=== PATIENT | male | born 1960 | race Caucasian/White ===

== ENCOUNTER 2016-02-18 19:53 | Inpatient (IN) | payer OTHER ==
[~2016-02-18] VITALS: Ht 154.9 cm; Wt 69.6 kg
[~2016-02-18 19:53] MED LIST: TRAM50TA PO; ZANT150T2 PO
[2016-02-18 19:55] VITALS: BP 116/65; PULSE 66; RESP 20; TEMP 99.1; O2SAT 95
[2016-02-18] MEDS ORDERED: SODIUM CHLOR 0.9% 1000 ML INJ 1,000 ML IV SCH (20:02)
[2016-02-18] MEDS ORDERED: METR500T10 PO (20:05)
[2016-02-18] MEDS ORDERED: diphenhydrAMINE HCL 50 MG/ML VIAL IV PUSH ONE (20:15)
[2016-02-18] MEDS ORDERED: ONDANSETRON HCL 4 MG/2 ML VIAL IVP ONE (20:15)
[2016-02-18] MEDS ORDERED: SODIUM CHLORIDE 0.9% FLUSH 5 ML FLUSH IVF PRN (20:15)
[2016-02-18] MEDS ORDERED: METOCLOPRAMIDE HCL 10 MG/2 ML VIAL IV PUSH ONE (20:15)
[2016-02-18] MEDS ORDERED: MORPHINE SULFATE 4 MG/ML INJ IV PUSH ONE (20:15)
[2016-02-18] MEDS ORDERED: PANTOPRAZOLE SODIUM 40 MG VIAL IVP ONE (20:15)
--- NOTE | 2016-02-18 20:15 | PD ---
Physical Exam Narrative Patient was seen and examined with my blacksmith assistant. Data Data Last Documented VS Vital Signs Date Time Temp Pulse Resp B/P Pulse Ox O2 Delivery O2 Flow Rate FiO2 02/18/16 19:55 99.1 66 20 116/65 95 Room Air Orders Complete Blood Count With Diff (02/18/16 20:02) Comprehensive Metabolic Panel (02/18/16 20:02) Lipase (02/18/16 20:02) Lactic Acid (02/18/16 20:02) Urinalysis - C+S If Indicated (02/18/16 20:02) Iv Access Insert/Monitor (02/18/16 20:02) Ecg Monitoring (02/18/16 20:02) Oximetry (02/18/16 20:02) NPO (02/18/16 20:02) Ondansetron Inj (Zofran Inj) (02/18/16 20:15) Pantoprazole Inj (Protonix Inj) (02/18/16 20:15) Sodium Chlor 0.9% 1000 Ml Inj (Ns 1000 M (02/18/16 20:02) Sodium Chloride 0.9% Flush (Ns Flush) (02/18/16 20:15) Morphine Inj (Morphine Inj) (02/18/16 20:15) Metoclopramide Inj (Reglan Inj) (02/18/16 20:15) Diphenhydramine Inj (Benadryl Inj) (02/18/16 20:15) MDM Supervised Visit with LEONARD: Yes Juan Daniel Valle MD Feb 18, 2016 20:15
[2016-02-18 20:27] VITALS: BP 201/98; PULSE 86; RESP 16; O2SAT 92
--- NOTE | 2016-02-18 20:27 | PD ---
HPI Chief Complaint: GI Complaint Time Seen by Provider: 20:00 Travel History International Travel<30 days: No Contact w/Intl Traveler<30days: No Traveled to known affect area: No History of Present Illness HPI Patient is a 55-year-old male who presents emergency department for evaluation of nausea and vomiting and abdominal pain. Patient states that this episode started yesterday, he has been vomiting all day. Patient reports that the symptoms have been intermittent over the last 5 years, patient was recently in the emergency Department approximately one month ago with the same complaint. He denies any fever, chills, headache, diarrhea. Patient is Vietnamese-speaking only, staff member is interpreting. Patient denies any alcohol use, drug use, tobacco use. He does report substernal chest pain. He went to his primary DrArely Johnson 2 days ago was prescribed Flagyl. [facility] Past Medical History Diminished Hearing: No Gastrointestinal Disorders: Yes GERD: Yes Hypertension: Yes Family History Family History: Negative Social History Alcohol Use: No Tobacco Use: No Substance Use: No Allergies-Medications (Allergen,Severity, Reaction): Coded Allergies: No Known Allergies (Verified , 02/18/16) Reported Meds & Prescriptions Reported Meds & Active Scripts Active Reported Metronidazole 500 Mg Tab 500 Mg PO TID Review of Systems Except as stated in HPI: all other systems reviewed are Neg General / Constitutional: No: Fever, Chills HENT: No: Headaches Cardiovascular: Positive: Chest Pain or Discomfort Respiratory: No: Shortness of Breath Gastrointestinal: Positive: Nausea, Vomiting, Abdominal Pain, Indigestion, Loss of Appetite, No: Diarrhea, Changes in Bowel Habits Genitourinary: No: Dysuria Musculoskeletal: No: Myalgias Neurologic: No: Weakness, Dizziness, Focal Abnormalities, Change in Mentation Physical Exam Narrative GENERAL: Well developed, well-nourished, alert male. Appears uncomfortable, actively vomiting. SKIN: Warm and dry. HEAD: Atraumatic. Normocephalic. EYES: Pupils equal and round. No scleral icterus. No injection or drainage. ENT: No nasal bleeding or discharge. Mucous membranes pink and moist. NECK: Trachea midline. No JVD. CARDIOVASCULAR: Regular rate and rhythm. No murmur appreciated. RESPIRATORY: No accessory muscle use. Clear to auscultation. Breath sounds equal bilaterally. GASTROINTESTINAL: Abdomen soft, tender diffusely with positive bowel sounds. Positive guarding. MUSCULOSKELETAL: No obvious deformities. No clubbing. No cyanosis. No edema. NEUROLOGICAL: Awake and alert. No obvious cranial nerve deficits. Motor grossly within normal limits. Normal speech. PSYCHIATRIC: Appropriate mood and affect; insight and judgment normal. Data Data Last Documented VS Vital Signs Date Time Temp Pulse Resp B/P Pulse Ox O2 Delivery O2 Flow Rate FiO2 02/18/16 21:15 66 16 177/85 97 Room Air 02/18/16 19:55 99.1 Orders Complete Blood Count With Diff (02/18/16 20:02) Comprehensive Metabolic Panel (02/18/16 20:02) Lipase (02/18/16 20:02) Lactic Acid (02/18/16 20:02) Urinalysis - C+S If Indicated (02/18/16 20:02) Iv Access Insert/Monitor (02/18/16 20:02) Ecg Monitoring (02/18/16 20:02) Oximetry (02/18/16 20:02) NPO (02/18/16 20:02) Ondansetron Inj (Zofran Inj) (02/18/16 20:15) Pantoprazole Inj (Protonix Inj) (02/18/16 20:15) Sodium Chlor 0.9% 1000 Ml Inj (Ns 1000 M (02/18/16 20:02) Sodium Chloride 0.9% Flush (Ns Flush) (02/18/16 20:15) Morphine Inj (Morphine Inj) (02/18/16 20:15) Metoclopramide Inj (Reglan Inj) (02/18/16 20:15) Diphenhydramine Inj (Benadryl Inj) (02/18/16 20:15) Ckmb (Isoenzyme) Profile (02/18/16 20:15) Troponin I (02/18/16 20:15) CKMB (02/18/16 20:15) CKMB% (02/18/16 20:15) Electrocardiogram (02/18/16 20:42) Ct Abd/Pel W Iv Contrast(Rout) (02/18/16 ) Admit Order (Ed Use Only) (02/18/16 21:57) Labs Laboratory Tests Test 02/18/16 20:15 White Blood Count 16.9 TH/MM3 Red Blood Count 5.08 MIL/MM3 Hemoglobin 15.0 GM/DL Hematocrit 45.1 % Mean Corpuscular Volume 88.7 FL Mean Corpuscular Hemoglobin 29.6 PG Mean Corpuscular Hemoglobin 33.4 % Concent Red Cell Distribution Width 14.1 % Platelet Count 268 TH/MM3 Mean Platelet Volume 9.6 FL Neutrophils (%) (Auto) 64.8 % Lymphocytes (%) (Auto) 24.4 % Monocytes (%) (Auto) 9.5 % Eosinophils (%) (Auto) 1.0 % Basophils (%) (Auto) 0.3 % Neutrophils # (Auto) 11.0 TH/MM3 Lymphocytes # (Auto) 4.1 TH/MM3 Monocytes # (Auto) 1.6 TH/MM3 Eosinophils # (Auto) 0.2 TH/MM3 Basophils # (Auto) 0.1 TH/MM3 CBC Comment DIFF FINAL Differential Comment Sodium Level 134 MEQ/L Potassium Level 3.5 MEQ/L Chloride Level 99 MEQ/L Carbon Dioxide Level 27.1 MEQ/L Anion Gap 8 MEQ/L Blood Urea Nitrogen 16 MG/DL Creatinine 1.15 MG/DL Estimat Glomerular Filtration 66 ML/MIN Rate Random Glucose 141 MG/DL Lactic Acid Level 2.1 mmol/L Calcium Level 8.5 MG/DL Total Bilirubin 2.8 MG/DL Aspartate Amino Transf 240 U/L (AST/SGOT) Alanine Aminotransferase 441 U/L (ALT/SGPT) Alkaline Phosphatase 230 U/L Total Creatine Kinase 243 U/L Creatine Kinase MB 1.4 NG/ML Troponin I LESS THAN 0.02 NG/ML Total Protein 8.1 GM/DL Albumin 4.0 GM/DL Lipase GREATER THAN 90289 U/L MDM Medical Decision Making Medical Screen Exam Complete: Yes Emergency Medical Condition: Yes Medical Record Reviewed: Yes Interpretation(s) Laboratory Tests Test 02/18/16 20:15 White Blood Count 16.9 TH/MM3 Red Blood Count 5.08 MIL/MM3 Hemoglobin 15.0 GM/DL Hematocrit 45.1 % Mean Corpuscular Volume 88.7 FL Mean Corpuscular Hemoglobin 29.6 PG Mean Corpuscular Hemoglobin 33.4 % Concent Red Cell Distribution Width 14.1 % Platelet Count 268 TH/MM3 Mean Platelet Volume 9.6 FL Neutrophils (%) (Auto) 64.8 % Lymphocytes (%) (Auto) 24.4 % Monocytes (%) (Auto) 9.5 % Eosinophils (%) (Auto) 1.0 % Basophils (%) (Auto) 0.3 % Neutrophils # (Auto) 11.0 TH/MM3 Lymphocytes # (Auto) 4.1 TH/MM3 Monocytes # (Auto) 1.6 TH/MM3 Eosinophils # (Auto) 0.2 TH/MM3 Basophils # (Auto) 0.1 TH/MM3 CBC Comment DIFF FINAL Differential Comment Sodium Level 134 MEQ/L Potassium Level 3.5 MEQ/L Chloride Level 99 MEQ/L Carbon Dioxide Level 27.1 MEQ/L Anion Gap 8 MEQ/L Blood Urea Nitrogen 16 MG/DL Creatinine 1.15 MG/DL Estimat Glomerular Filtration 66 ML/MIN Rate Random Glucose 141 MG/DL Lactic Acid Level 2.1 mmol/L Calcium Level 8.5 MG/DL Total Bilirubin 2.8 MG/DL Aspartate Amino Transf 240 U/L (AST/SGOT) Alanine Aminotransferase 441 U/L (ALT/SGPT) Alkaline Phosphatase 230 U/L Total Creatine Kinase 243 U/L Troponin I LESS THAN 0.02 NG/ML Total Protein 8.1 GM/DL Albumin 4.0 GM/DL Lipase GREATER THAN 66652 U/L Vital Signs Date Time Temp Pulse Resp B/P Pulse Ox O2 Delivery O2 Flow Rate FiO2 02/18/16 21:15 66 16 177/85 97 Room Air 02/18/16 20:27 86 16 201/98 92 Room Air 02/18/16 19:55 99.1 66 20 116/65 95 Room Air Differential Diagnosis Gastritis versus gastroenteritis versus gastroparesis versus obstruction versus cholecystitis versus pancreatitis versus other Narrative Course Patient is a 55-year-old Vietnamese-speaking male who presented to the emergency department with complaint of nausea, vomiting, abdominal pain that started yesterday. Patient has had similar symptoms over the last 5 years with intermittent exacerbations. Patient was in the emergency Department approximately 5 weeks ago with the same complaint. CT scan abdomen and pelvis on 12/29/15 negative for acute abnormality. On that visit patient's CBC, liver enzymes, lipase were unremarkable. Patient was discharged home on ranitidine and tramadol. Patient went to his primary doctor 2 days ago and was prescribed Flagyl. Patient denies any alcohol intake or drug use. Today his CBC shows an elevated white count, mild transaminitis, elevated lipase greater than 30,000, lactic acid is 2.1. Patient has been given Benadryl , Reglan, morphine, Protonix, and Zofran. Patient is resting comfortably he has not vomited since he received these medications. Family is at bedside. CT scan of the abdomen and pelvis is ordered and pending. [facility] hospitalist paged for admission. CT scan shows common bile duct dilated to 10 mm, and findings are suspicious for pancreatitis. Will defer treatment to attending physician. Patient's brother Goran Royal can be reached at [phone] Diagnosis Primary Impression: Acute pancreatitis Qualified Code: K85.90 - Acute pancreatitis, unspecified complication status, unspecified pancreatitis type Admitting Information Admitting Physician Requests: Admit Condition: Stable Mel Resendez Feb 18, 2016 20:27
[2016-02-18 20:30] LABS: BASOPHIL # 0.1 TH/MM3 (0-0.2); BASOPHIL % 0.3 % (0.0-2.0); EOSINOPHIL # 0.2 TH/MM3 (0-0.4); HEMATOCRIT 45.1 % (39.0-51.0); HEMO FLAGS DIFF FINAL; LYMPH % 24.4 % (9.0-44.0); LYMPHOCYTE # 4.1 TH/MM3 (1.0-4.8); MEAN CELL VOLUME 88.7 FL (80.0-100.0); MEAN CORPUSCULAR HEMOGLOBIN 29.6 PG (27.0-34.0); MEAN CORPUSCULAR HGB CONC 33.4 % (32.0-36.0); MONO % 9.5 % (0.0-8.0); NEUT % 64.8 % (16.0-70.0); PLATELET COUNT 268 TH/MM3 (150-450); RED BLOOD COUNT 5.08 MIL/MM3 (4.50-5.90); RED CELL DISTRIBUTION WIDTH 14.1 % (11.6-17.2); WHITE BLOOD COUNT 16.9 TH/MM3 (4.0-11.0)
[2016-02-18 20:57] LABS: ANION GAP 8 MEQ/L (5-15); AST (GOT) 240 U/L (15-37); BICARBONATE 27.1 MEQ/L (21.0-32.0); BLOOD UREA NITROGEN 16 MG/DL (7-18); CHLORIDE 99 MEQ/L (98-107); GLOMERULAR FILTRATION RATE 66 ML/MIN (>89); POTASSIUM 3.5 MEQ/L (3.5-5.1); SODIUM (NA) 134 MEQ/L (136-145)
[2016-02-18 21:10] LABS: ALKALINE PHOSPHATASE 230 U/L (45-117); ALT (GPT) 441 U/L (12-78); CREATINE KINASE 243 U/L (39-308); TOTAL BILIRUBIN ADULT 2.8 MG/DL (0.2-1.0)
[2016-02-18 21:15] VITALS: BP 177/85; PULSE 66; RESP 16; O2SAT 97
[2016-02-18 22:28] LABS: CKMB 1.4 NG/ML (0.5-3.6)
[2016-02-18] MEDS ORDERED: NALOXONE HCL 0.4 MG/ML AMP IV PRN (22:30)
[2016-02-18] MEDS ORDERED: ACETAMINOPHEN 325 MG TAB PO PRN (22:30)
[2016-02-18] MEDS: D5-1/2 NS + KCL 20 MEQ INJ 1,000 ML IV SCH (22:36)
[2016-02-18] MEDS: HYDROmorphone HCL PF 1 MG/ML VIAL IV PUSH PRN (22:41)
[2016-02-18] MEDS ORDERED: IOHEXOL 350 MG/ML 10 ML VIAL (for RAD DIAG) IV ONE (22:49)
--- NOTE | 2016-02-18 23:10 | RADRPT ---
EXAM DATE/TIME: 02/18/2016 22:43 [place] COMPARISON: CT ABDOMEN & PELVIS W CONTRAST, December 29, 2015, 5:48. INDICATIONS : Diffuse abdominal pain and vomiting. IV CONTRAST: 96 cc Omnipaque 350 (iohexol) IV ORAL CONTRAST: No oral contrast ingested. RADIATION DOSE: 7.55 CTDIvol (mGy) MEDICAL HISTORY : Hypertension. Gastroesophageal reflux disease. SURGICAL HISTORY : None. ENCOUNTER: Initial ACUITY: 1 day PAIN SCALE: 5/10 LOCATION: Bilateral abdomen. TECHNIQUE: Volumetric scanning of the abdomen and pelvis was performed. Using automated exposure control and ad justment of the mA and/or kV according to patient size, radiation dose was kept as low as reasonably achievable to obtain optimal diagnostic quality images. FINDINGS: LOWER LUNGS: Mild atelectasis both lung bases LIVER: Homogeneous density without lesion. There is no dilation of the biliary tree except for dilated comm on bile duct. No calcified gallstones. There is mild fluid around the liver SPLEEN: Small in size without lesion but fluid around the spleen. PANCREAS: There some inhomogeneity density involving the pancreatic tail with significant fluid around the panc reas. KIDNEYS: Normal in size and shape. There is no mass, stone or hydronephrosis. ADRENAL GLANDS: Within normal limits. VASCULAR: There is no aortic aneurysm. BOWEL/MESENTERY: The stomach, small bowel, and colon demonstrate no acute abnormality. There is no free intraperitone al air or fluid. ABDOMINAL WALL: Within normal limits. RETROPERITONEUM: There is no lymphadenopathy. BLADDER: No wall thickening or mass. REPRODUCTIVE: Within normal limits. INGUINAL: There is no lymphadenopathy or hernia. MUSCULOSKELETAL: Within normal limits for patient age. CONCLUSION: There are some areas of lower density within the pancreas with significant peripancreatic fluid suspi cious for pancreatitis. No drainable fluid collection or abscess is identified. The patient's common bile duct is dilated to 10 mm although no calcified stones are seen. The CBD is slightly more promin ent than in December. Khoa Zhu MD on February 18, 2016 at 23:03 Board Certified Radiologist. This report was verified electronically.
[2016-02-18 23:26] VITALS: BP 190/91; PULSE 97; RESP 16; O2SAT 95
[2016-02-19] VITALS (12 sets, daily range): BP systolic 125–188; BP diastolic 78–114; PULSE 87–140; RESP 18–20; TEMP 97.8–99.5; O2SAT 91–97
[2016-02-19] MEDS: ENALAPRILAT 1.25 MG/ML VIAL IV PUSH PRN (02:44)
[2016-02-19] MEDS: HYDROmorphone HCL PF 1 MG/ML VIAL IV PUSH PRN ×6 (02:44→23:57)
[2016-02-19] MEDS: SODIUM CHLORIDE 0.9% FLUSH 5 ML FLUSH FLUSH PRN (02:44)
[2016-02-19] MEDS: ONDANSETRON HCL 4 MG/2 ML VIAL IVP PRN (06:28)
[2016-02-19 07:09] LABS: BICARBONATE 21.1 MEQ/L (21.0-32.0); POTASSIUM 4.5 MEQ/L (3.5-5.1)
[2016-02-19 07:11] LABS: HEMATOCRIT 53.2 % (39.0-51.0); MEAN CELL VOLUME 90.5 FL (80.0-100.0); MEAN CORPUSCULAR HEMOGLOBIN 30.1 PG (27.0-34.0); MEAN CORPUSCULAR HGB CONC 33.3 % (32.0-36.0); PLATELET COUNT 237 TH/MM3 (150-450); RED BLOOD COUNT 5.89 MIL/MM3 (4.50-5.90); RED CELL DISTRIBUTION WIDTH 14.5 % (11.6-17.2); WHITE BLOOD COUNT 17.2 TH/MM3 (4.0-11.0)
[2016-02-19 07:32] LABS: HEMO FLAGS AUTO DIFF
[2016-02-19] MEDS: D5-1/2 NS + KCL 20 MEQ INJ 1,000 ML IV SCH ×3 (07:59→22:48)
[2016-02-19] MEDS: SODIUM CHLORIDE 0.9% FLUSH 5 ML FLUSH FLUSH SCH ×2 (08:02→21:00)
[2016-02-19 10:11] LABS: BANDS 27 % (0-6); NEUTROPHIL # MANUAL DIFF 16.7 TH/MM3 (1.8-7.7); POLYS (SEG NEUTROPHILS) 70 % (16-70); WBC DIFF SAMPLE 100
[2016-02-19 10:12] LABS: PLATELET ESTIMATE SMEAR NORMAL (NORMAL); PLATELET MORPHOLOGY NORMAL (NORMAL); SCAN/DIFF FINAL DIFF MANUAL
--- NOTE | 2016-02-19 13:11 | EKG ---
Date Performed: 02/18/2016 Time Performed: 20:42:51 PTAGE: 55 years EKG: Sinus rhythm NORMAL ECG NO PREVIOUS TRACING DOCTOR: Becca Wen Interpretating Date/Time 02/19/2016 13:08:43
[2016-02-19] MEDS: PANTOPRAZOLE SODIUM 40 MG VIAL IV PUSH SCH (16:45)
[2016-02-19] MEDS: PIPERACIL-TAZO 3.375 GM PREMIX 50 ML IV SCH ×2 (17:33→22:48)
--- NOTE | 2016-02-19 18:04 | MH ---
cc: SKYLAMICHACELESTINO DATE OF ADMISSION: 02/18/2016 CHIEF COMPLAINT The patient came to emergency room complaining of abdominal pain off and on since the first week of December with fever. PRIMARY CARE PHYSICIAN: Dr. Johnson. HISTORY OF PRESENT ILLNESS: This is a 55-year-old male who does not speak Canadian. History was obtained via a bean snapper with some limitation. He has a prior history of hypertension. He denies drinking alcohol or doing any drugs. He developed intermittent abdominal pain that was off and on and mild in the beginning. He, in fact, came to the [facility] Emergency Room on the 28 of December and was evaluated and was discharged home. He was doing okay up until the last four or five days when he states it became more severe, more frequent and he also developed associated nausea and vomiting. He, in fact, saw his primary care physician last week who gave him some medication; however, the pain did not improve and he then came to the hospital. Upon arrival, he was noted to be hemodynamically stable. He had significant abdominal tenderness. Labs show evidence of leukocytosis with left shift. His lipase was elevated to more than 30,000. Liver function tests were also elevated. He was diagnosed with acute pancreatitis and was admitted to the hospital under my service for further evaluation and management. PAST MEDICAL HISTORY: 1. Hypertension. 2. Gastroesophageal reflux disease (GERD). PAST SURGICAL HISTORY: The patient denies any major operations. SOCIAL HISTORY: He denies smoking, drinking or drug abuse. ALLERGIES: NO KNOWN DRUG ALLERGIES. FAMILY HISTORY: He does not know anything about his father. He was raised by his mother and step-father. His mother is healthy. REVIEW OF SYSTEMS: The patient reports nausea. He vomited a few times. Denies fever or chills. Denies chest pain, shortness of breath. He denies diarrhea. He denies hematemesis. He denies hemoptysis. He denies melena or bright red blood per rectum. Otherwise the review of systems is negative for ten systems. PHYSICAL EXAMINATION: GENERAL: This is a middle-aged male lying in bed. He is complaining of pain. He is awake and alert. He is oriented times three. He follows simple commands. VITAL SIGNS: Upon arrival, blood pressure 182/114, pulse of 104, respirations 18, temperature 98.4 axillary. Oxygen saturation 97%. HEAD, EYES, EARS, NOSE, THROAT: Normocephalic, atraumatic. Eye examination - Extraocular muscles are intact. Pupils equal, round and reactive. The patient has mild icterus. No pallor. ENT - No throat congestion. No oral ulcers. No thrush. Ears clear. NECK: The neck is supple. No jugular venous distention. No lymph nodes. No bruits. CARDIOVASCULAR: S1 and S2 audible. Regular rhythm. No murmur or gallop. RESPIRATORY SYSTEM: Lungs are clear to auscultation. No crackles or rhonchi appreciated. GASTROINTESTINAL: Abdomen soft. The patient has epigastric tenderness. Positive guarding. No rigidity. No rebound tenderness. EXTREMITIES: No cyanosis, clubbing or edema. Feet are warm to touch. Homans sign is negative. LABORATORY DATA: Sodium is 134, potassium 3.5, chloride 99, bicarbonate 27.1, BUN of 16, creatinine 1.15, glucose 141. ALP 230, AST is 240, ALT 441. Total protein is 8.1, albumin 4.0, lipase greater than 30,000. Total bilirubin 2.8. Repeat BUN today is 14, creatinine 1.40. Repeated lipase level is 8411. His white count today is 17.2, hemoglobin 17.7, hematocrit 53.2, and platelet count of 237,000. _ 70% neutrophils and 27% bands. IMAGING STUDIES: CT scan of the abdomen and pelvis was done with contrast and shows changes consistent with pancreatitis. No drainable fluid collection or abscess was seen. Common bile duct was dilated at 10 mm. No calcified stone was seen. ASSESSMENT: 1. Acute pancreatitis. The patient denies drinking alcohol. Suspect due to gallstone. Rule out choledocholithiasis. 2. Bandemia and leukocytosis.possible cholangitis. 3. Hyperglycemia, possible diabetes. 5. Hypertension. PLAN: 1. The patient has been admitted to the hospital. 2. We will keep him NPO. 3. Leave on IV fluids D5 half normal saline at 150 cc/hour. 4. Give him IV analgesic for pain control. 5. Start empiric IV antibiotics due to his bandemia and worsening leukocytosis. 6. Obtain GI consultation. The patient might need MRCP or ERCP. 7. Give him Protonix for GI protection. 8. Subcu Lovenox for DVT prophylaxis. Further management of this patient will be dependent on the hospital course. MD FLORENTINO Christianson/FERN /4:04 PM /5:49 PM PADDY
[2016-02-19] MEDS ORDERED: HYDROmorphone HCL PF 1 MG/ML VIAL IV PUSH PRN ×2 (18:30)
[2016-02-20] VITALS (11 sets, daily range): BP systolic 139–161; BP diastolic 80–96; PULSE 111–117; RESP 17–22; TEMP 98.2–99.8; O2SAT 92–98
[2016-02-20] MEDS: HYDROmorphone HCL PF 1 MG/ML VIAL IV PUSH PRN ×4 (03:48→21:45)
[2016-02-20] MEDS: PIPERACIL-TAZO 3.375 GM PREMIX 50 ML IV SCH ×3 (04:56→18:00)
[2016-02-20] MEDS: D5-1/2 NS + KCL 20 MEQ INJ 1,000 ML IV SCH (04:57)
[2016-02-20] MEDS: SODIUM CHLORIDE 0.9% FLUSH 5 ML FLUSH FLUSH SCH ×2 (09:00→21:00)
[2016-02-20 09:10] LABS: HEMATOCRIT 49.6 % (39.0-51.0); MEAN CELL VOLUME 90.1 FL (80.0-100.0); MEAN CORPUSCULAR HEMOGLOBIN 30.1 PG (27.0-34.0); MEAN CORPUSCULAR HGB CONC 33.3 % (32.0-36.0); PLATELET COUNT 146 TH/MM3 (150-450); REVIEW FLAG FINAL; WHITE BLOOD COUNT 17.1 TH/MM3 (4.0-11.0)
[2016-02-20 09:49] LABS: INDIRECT BILIRUBIN 1.2 MG/DL (0.0-0.8); TOTAL BILIRUBIN ADULT 3.7 MG/DL (0.2-1.0)
--- NOTE | 2016-02-20 11:00 | HHI.PR ---
Subjective History of Present Illness hx via customer success intern still in pain /meds are helping some feels thirsty remained tachycardic low grade temp last night 2 sons are at bedside Vitals/Results Intake & Output 02/19/16 02/19/16 02/20/16 15:00 23:00 07:00 Intake Total 1702 ml 450 ml 2125 ml Output Total 0 ml 1110 ml Balance 1702 ml -660 ml 2125 ml Intake Oral 0 ml IV Total 1702 ml 450 ml 2125 ml Output Urine Total 0 ml 1110 ml # Voids 0 # Bowel Movements 0 Vital Signs Vital Signs Date Time Temp Pulse Resp B/P Pulse Ox O2 Delivery O2 Flow Rate FiO2 02/20/16 08:26 98.3 117 20 156/96 93 02/20/16 07:59 111 02/20/16 04:00 98.8 116 18 147/93 92 02/20/16 00:50 99.8 112 22 157/94 93 02/20/16 00:00 98.9 111 17 161/91 92 02/19/16 20:59 140 02/19/16 20:03 114 02/19/16 20:00 99.5 115 18 163/95 91 02/19/16 18:26 99.4 118 20 125/78 92 02/19/16 16:08 97.8 109 20 154/95 93 02/19/16 12:06 99.5 97 20 137/90 94 02/19/16 11:48 100 CBC/BMP: 02/20/16 0827 02/19/16 0518 Lab Results Laboratory Tests Test 02/20/16 08:27 White Blood Count 17.1 TH/MM3 Red Blood Count 5.50 MIL/MM3 Hemoglobin 16.5 GM/DL Hematocrit 49.6 % Mean Corpuscular Volume 90.1 FL Mean Corpuscular Hemoglobin 30.1 PG Mean Corpuscular Hemoglobin 33.3 % Concent Red Cell Distribution Width 15.0 % Platelet Count 146 TH/MM3 Mean Platelet Volume 10.0 FL Total Bilirubin 3.7 MG/DL Direct Bilirubin 2.5 MG/DL Indirect Bilirubin 1.2 MG/DL Aspartate Amino Transf 84 U/L (AST/SGOT) Alanine Aminotransferase 210 U/L (ALT/SGPT) Alkaline Phosphatase 171 U/L Total Protein 6.5 GM/DL Albumin 2.6 GM/DL Lipase 5773 U/L Physical Exam General General Appearance: No Acute Distress, Comfortable Eyes Eye Exam: Pupils Equal, Extraocular Movement Intact, Jaundice Eye Remarks mild icterus Ears & Nose Ears & Nose Exam: Nasal Mucosa Tryon Throat Throat Exam: Oral Mucosa Tryon & Moist Neck Neck Exam: Neck Supple, Trachea Midline Pulmonary Resp Exam: Clear Bilaterally, Breath Sounds Equal, No Distress Cardiology CV Exam: Regular, Normal Sinus Rhythm Gastrointestinal/Abdomen GI Exam: Soft GI Remarks +ve upper abd tenderness . +ve voluntary guarding Integumentary Skin Exam: Warm, Dry Extremeties Extremities Exam: No Edema, Pedal Pulses Palpable Neurologic Neuro Exam: Alert, Awake, Oriented, Speech Clear, Moving All Extremities Psychiatric Psych Exam: Appropriate Responses PUD Prophylasis PUD Prophylaxis: Protonix Assessment/Plan Assessment/Plan SSESSMENT: 1. Acute pancreatitis. The patient denies drinking alcohol. Suspect due to gallstone. Rule out choledocholithiasis. 2. Bandemia and leukocytosis.possible cholangitis 3. Hyperglycemia, possible diabetes. 5. Hypertension. PLAN: Keep NPO give extra IVfluids IV analgesic /inc dose dilaudid IV abx PPI d/w Dr fisher he is ordering MRCP & is contemplating ERCP later this afternoon d/w PT & family' am labs dr selby will f/u in am Sandra Gonzalez MD Feb 20, 2016 11:00
[2016-02-20] MEDS ORDERED: DEXT 5%-NACL 0.45% 1000 ML INJ 1,000 ML IV SCH (12:30)
--- NOTE | 2016-02-20 15:52 | PD.CONS ---
HPI History of Present Illness This is a 55 year old male who was admitted on with abdominal pain and fever. The pain started initially in December then improved and was doing ok at home until pain returned again and became severe associated with nausea and vomiting. Lipase was elevated initially greater than 30.000 and LF's were elevated. He has been diagnosed with acute pancreatitis, probable gallstone pancreatitis. An MRCP was done today, if abnormal will need ERCP today. (Guerda Flynn) PFSH Past Medical History HTN GERD Past Surgical History Denies any previous surgeries (Guerda Flynn) Coded Allergies: No Known Allergies (Verified , 02/18/16) Medications Reported Meds & Active Scripts Active Reported Metronidazole 500 Mg Tab 500 Mg PO TID Family History Mother healthy, father's health history is unknown Social History Denies smoking or alcohol use (Guerda Flynn) Review of Systems Gastrointestinal: COMPLAINS OF: Abdominal pain, Nausea (Guerda Flynn) GI Exam Vitals I&O Vital Signs Date Time Temp Pulse Resp B/P Pulse Ox O2 Delivery O2 Flow Rate FiO2 02/20/16 12:04 98.2 112 21 154/87 93 02/20/16 08:26 98.3 117 20 156/96 93 02/20/16 07:59 111 02/20/16 04:00 98.8 116 18 147/93 92 02/20/16 00:50 99.8 112 22 157/94 93 02/20/16 00:00 98.9 111 17 161/91 92 02/19/16 20:59 140 02/19/16 20:03 114 02/19/16 20:00 99.5 115 18 163/95 91 02/19/16 18:26 99.4 118 20 125/78 92 02/19/16 16:08 97.8 109 20 154/95 93 I/O 02/19/16 02/19/16 02/19/16 02/20/16 02/20/16 02/20/16 07:00 15:00 23:00 07:00 15:00 23:00 Intake Total 788 ml 1702 ml 450 ml 2125 ml 1388 ml Output Total 0 ml 1110 ml Balance 788 ml 1702 ml -660 ml 2125 ml 1388 ml Intake Oral 0 ml IV Total 788 ml 1702 ml 450 ml 2125 ml 1388 ml Output Urine Total 0 ml 1110 ml # Voids 0 # Bowel Movements 0 Imaging Last 72 hours Impressions Abdomen/Pelvis CT 02/18/16 0000 Signed Impressions: Service Date/Time: Thursday, February 18, 2016 22:43 - CONCLUSION: There are some areas of lower density within the pancreas with significant peripancreatic fluid suspicious for pancreatitis. No drainable fluid collection or abscess is identified. The patient's common bile duct is dilated to 10 mm although no calcified stones are seen. The CBD is slightly more prominent than in December. Khoa Zhu MD Laboratory Test 02/20/16 08:27 White Blood Count 17.1 TH/MM3 Red Blood Count 5.50 MIL/MM3 Hemoglobin 16.5 GM/DL Hematocrit 49.6 % Mean Corpuscular Volume 90.1 FL Mean Corpuscular Hemoglobin 30.1 PG Mean Corpuscular Hemoglobin 33.3 % Concent Red Cell Distribution Width 15.0 % Platelet Count 146 TH/MM3 Mean Platelet Volume 10.0 FL Total Bilirubin 3.7 MG/DL Direct Bilirubin 2.5 MG/DL Indirect Bilirubin 1.2 MG/DL Aspartate Amino Transf 84 U/L (AST/SGOT) Alanine Aminotransferase 210 U/L (ALT/SGPT) Alkaline Phosphatase 171 U/L Total Protein 6.5 GM/DL Albumin 2.6 GM/DL Lipase 5773 U/L Physical Examination HEENT: Pupils round and reactive to light; normocephalic; atraumatic; no jaundice. Throat is clear. NECK: Neck is supple, no JVD, no lymphadenopathy. CHEST: Chest is clear to auscultation and percussion. CARDIAC: Regular rate and rhythm with no murmur gallop or rubs. ABDOMEN: Soft, distended, tender; with some guarding noted no hepatosplenomegaly; bowel sounds are present in all four quadrants. EXTREMITIES: No clubbing, cyanosis, or edema. SKIN: Normal; no rash; no jaundice. RECEIVER STOCKER: No focal deficits; alert and oriented times three. (Guerda Flynn) Assessment and Plan Assessment: (1) Acute pancreatitis Plan: Has acute pancreatitis, probable gall stone pancreatitis, MRCP was done today and results are pending, if abnormal will need an ERCP Abdomen/Pelvis CT 02/18/16 CONCLUSION: There are some areas of lower density within the pancreas with significant peripancreatic fluid suspicious for pancreatitis. No drainable fluid collection or abscess is identified. The patient's common bile duct is dilated to 10 mm although no calcified stones are seen. The CBD is slightly more prominent than in December Lipase initially >30,000 now down to 5773, CBC shows leukocytosis with WBC's of 17.7 H&H is stable at /49.6 Still has abdominal pain Continue antibiotics (2) Abdominal pain Plan: Secondary to pancreatitis (3) GERD (gastroesophageal reflux disease) Plan: has Hx GERD, continue PPI (4) Leukocytosis Plan: Secondary to pancreatitis Continue Zosyn (5) Elevated LFTs Plan: Bilirubin is 3.7, direct is 2.5, indirect is 1.2, AST is 84, ALT 210, Alk phos is 171 Likely has Gallstone pancreatitis Plan Plan -IV hydration -Antibiotics -MRCP -IF MRCP negative will need ERCP today -Pain management -AM labs -Supportive care Thank you for the consult Patient was seen and examined by Dr. Mason and myself, this note is written on his behalf. (Guerda Flynn) Physician Comments Seen and examined, discussed treatment plan via medical office coordinator, will need ERCP today. Risks, benefit and possible complications discussed with the patient via medical office coordinator and consent signed. Further recommendations to follow. (Tommy Mason MD) Problem Qualifiers (1) Acute pancreatitis: Qualified Code: K85.90 - Acute pancreatitis, unspecified complication status, unspecified pancreatitis type Guerda Flynn Feb 20, 2016 15:52 Tommy Mason MD Feb 20, 2016 15:56
[2016-02-20] MEDS ORDERED: PROPOFOL 200 MG/20 ML AMP IV ONE (16:37)
[2016-02-20] MEDS ORDERED: IOHEXOL 300 MG/ML 50 ML BTL (for RAD DIAG) ONE (16:37)
--- NOTE | 2016-02-20 16:43 | RADRPT ---
EXAM DATE/TIME: 02/20/2016 14:46 [facility] COMPARISON: CT ABDOMEN & PELVIS W CONTRAST, February 18, 2016, 22:43. INDICATIONS : Abdominal pain. MEDICAL HISTORY : Hypertension. SURGICAL HISTORY : None. ENCOUNTER: Subsequent ACUITY: 2 day PAIN SCORE: 3/10 LOCATION: Abdomen TECHNIQUE: Multiplanar, multisequence magnetic resonance imaging of the abdomen was performed. High-resolution 3D dataset was utilized to reconstruct maximum-intensity projection (MIP) images. FINDINGS: The common bile duct is distended, measures about 15 mm. This [facility] Within the distal lumen are at least 2 filling defects each measuring about 3-4 mm in size compatible with stones. These are about 1 cm above the ampulla and do not appear to be acutely obstr ucting. There appears to be a small amount of floating debris within the distal duct as well. I don't see a mass. Several tiny stones are suspected dependently within the gallbladder neck, series 3 image 20. Peripancreatic edema again noted. There is no dilatation of the pancreatic duct. Small perihepatic as cites not significantly changed. CONCLUSION: 1. Biliary distention. At least two 3-4 mm stones and small amount of debris floating around in the d istal common bile duct. A few similar size stones are in the gallbladder neck. I don't see an acutely obstructing stone of the duct or gallbladder. 2. Pancreatitis associated peripancreatic edema not significantly changed from the CT. No pancreatic duct dilatation. William Escobar MD on February 20, 2016 at 16:35 Board Certified Radiologist. This report was verified electronically.
[2016-02-20] MEDS: DEXT 5%-NACL 0.45% 1000 ML INJ 1,000 ML IV SCH (17:30)
[2016-02-20] MEDS ORDERED: PROPOFOL 1000 MG/100 ML INJ 100 ML ONE (17:40)
[2016-02-20] MEDS ORDERED: MIDAZOLAM HCL 2 MG/2 ML VIAL ONE (17:51)
[2016-02-20] MEDS ORDERED: DO NOT ADM ANY ANTICOAGULANT DRUGS XX PRN (18:00)
[2016-02-20] MEDS: PANTOPRAZOLE SODIUM 40 MG VIAL IV PUSH SCH (18:00)
--- NOTE | 2016-02-20 18:15 | RADRPT ---
EXAM DATE/TIME: 02/20/2016 16:45 [facility] COMPARISON: No previous studies available for comparison. INDICATIONS : Choledocolithiasis. FLUORO TIME: 1.6 minutes IMAGE COUNT: 3 CONTRAST: Instilled by Ordering Physician MEDICAL HISTORY : Hypertension. SURGICAL HISTORY : None. ENCOUNTER: Initial ACUITY: 1 day PAIN SCORE: Non-responsive. LOCATION: abdomen FINDINGS: An ERCP was performed by the ordering physician. The images demonstrate distended common bile duct without a well-defined filling defect. There is edith e opacification seen posterior to the common bile duct, presumably the cystic duct or in the duodenum . The appearance does not suggest a leak. CONCLUSION: ERCP as above. William Escobar MD on February 20, 2016 at 18:12 Board Certified Radiologist. This report was verified electronically.
--- NOTE | 2016-02-20 18:22 | RADRPT ---
EXAM DATE/TIME: 02/20/2016 18:00 [facility] COMPARISON: No previous studies available for comparison. INDICATIONS : Post intubation. MEDICAL HISTORY : Hypertension. Gastroesophageal reflux disease. SURGICAL HISTORY : None. ENCOUNTER: Initial ACUITY: 1 day PAIN SCORE: Non-responsive. LOCATION: Bilateral chest FINDINGS: There is mild bibasilar atelectasis especially on the left. No large pleural effusion seen. No pneumo thorax. Heart size within normal limits. Patient is now intubated. Endotracheal tube tip is at the keren. CONCLUSION: Endotracheal tube tip at the keren. It should be pulled back a couple centimeters. There is left gre ater than right basilar atelectasis. William Escobar MD on February 20, 2016 at 18:19 Board Certified Radiologist. This report was verified electronically.
[2016-02-20 18:25] LABS: BLOOD GAS CARBOXYHEMOGLOBIN 1.5 % (0-4); BLOOD GAS HCO3 21 mmol/L (22-26); BLOOD GAS METHEMOGLOBIN 1.1 % (0-2); BLOOD GAS O2 HGB SATURATION 96 % (90-100); BLOOD GAS OXYGEN CONTENT 21.4 Vol % (12.0-20.0); BLOOD GAS PCO2 38 mmHg (38-42); BLOOD GAS PO2 118 mmHg (61-120); BLOOD GAS TOTAL HGB 15.8 G/DL (12.0-16.0); CRITICAL VALUE NO; DRAW SITE RT BRACHIAL; FIO2 50 %; NUMBER OF ARTERIAL PUNCTURES 1; OXYGEN DEVICE VENTILATOR; STAT NO; TEMP CORR TO 98.6; ULNAR PULSE PRESENT; VENT SETTINGS AC14/500/+5PEEP
[2016-02-20] MEDS ORDERED: RESP: ALBUTEROL 2.5 MG/3 ML NEB (PRN) ONE (19:12)
[2016-02-20] MEDS ORDERED: SODIUM CHLORID 0.9% 500 ML INJ 500 ML IV PRN (22:45)
[2016-02-21] VITALS: BP 156/70; PULSE 115; RESP 22; TEMP 98.6; O2SAT 94
[2016-02-21] MEDS: DEXT 5%-NACL 0.45% 1000 ML INJ 1,000 ML IV SCH ×4 (00:10→20:10)
[2016-02-21] MEDS: PIPERACIL-TAZO 3.375 GM PREMIX 50 ML IV SCH ×4 (00:13→15:36)
[2016-02-21] MEDS: HYDROmorphone HCL PF 1 MG/ML VIAL IV PUSH PRN ×5 (05:09→20:50)
[2016-02-21 07:48] LABS: HEMATOCRIT 40.9 % (39.0-51.0); MEAN CELL VOLUME 89.7 FL (80.0-100.0); MEAN CORPUSCULAR HGB CONC 33.4 % (32.0-36.0); PLATELET COUNT 130 TH/MM3 (150-450); RED BLOOD COUNT 4.57 MIL/MM3 (4.50-5.90); RED CELL DISTRIBUTION WIDTH 15.4 % (11.6-17.2); REVIEW FLAG FINAL; WHITE BLOOD COUNT 13.4 TH/MM3 (4.0-11.0)
[2016-02-21 08:00] VITALS: BP 166/82; PULSE 110; RESP 20; TEMP 99.1; O2SAT 94
[2016-02-21 08:26] LABS: BICARBONATE 25.7 MEQ/L (21.0-32.0); CALCIUM-PROTEIN CORRECTED 7.6 MG/DL (8.5-10.1)
[2016-02-21 09:31] VITALS: PULSE 112
[2016-02-21] MEDS: SODIUM CHLORIDE 0.9% FLUSH 5 ML FLUSH FLUSH SCH ×2 (09:49→20:50)
[2016-02-21] MEDS ORDERED: INFLUENZA VIRUS VACCINE (QUADRIVALENT) 0.5 ML SYR IM ONE (10:00)
[2016-02-21] MEDS ORDERED: PNEUMOCOCCAL POLYVALENT INJ 25 MCG/0.5 ML SYR IM ONE (10:00)
--- NOTE | 2016-02-21 11:37 | HHI.PR ---
Subjective Subjective Remarks pt speaks Armenian, sons at [facility]sd pt. having difficulty understanding what is going on with him even when information is provided in Armenian still having RUQ pain, a little better after medication given no N/V very thirsty no fever tachycardic with elevated BP, doesn't recall what he takes at home no bm no urinary symptoms Review of Systems Constitutional Constitutional Remarks 12 point ROS completed, limited, Vitals/Results Intake & Output 02/20/16 02/20/16 02/21/16 15:00 23:00 07:00 Intake Total 1388 ml 1725 ml Output Total 800 ml 300 ml 200 ml Balance 588 ml 1425 ml -200 ml IV Total 1388 ml 325 ml Other 1400 ml Output Urine Total 800 ml 300 ml 200 ml # Bowel Movements 0 Vital Signs Vital Signs Date Time Temp Pulse Resp B/P Pulse Ox O2 Delivery O2 Flow Rate FiO2 02/21/16 08:00 99.1 110 20 166/82 94 02/21/16 00:00 98.6 115 22 156/70 94 02/20/16 19:45 98.8 112 16 151/95 95 Nasal Cannula 4 02/20/16 19:30 113 16 158/94 94 Nasal Cannula 4 02/20/16 19:15 107 16 169/97 97 Nasal Cannula 4 02/20/16 19:14 94 Nasal Cannula 4.00 02/20/16 19:08 94 4 02/20/16 19:00 107 14 151/94 96 Mechanical Ventilator 50 02/20/16 18:45 109 14 142/87 96 Mechanical Ventilator 50 02/20/16 18:35 45 02/20/16 18:35 97 45 02/20/16 18:30 50 02/20/16 18:30 102 14 132/89 96 Mechanical Ventilator 50 02/20/16 18:15 104 6 146/92 96 Mechanical Ventilator 50 02/20/16 18:00 110 14 154/92 96 Mechanical Ventilator 50 02/20/16 17:45 118 14 143/86 98 Mechanical Ventilator 50 02/20/16 17:34 50 02/20/16 17:34 99.3 123 20 143/83 98 Mechanical Ventilator 50 02/20/16 17:30 98 50 02/20/16 16:13 98.4 114 20 139/80 93 02/20/16 12:04 98.2 112 21 154/87 93 CBC/BMP: 02/21/16 0705 02/21/16 0705 Lab Results Laboratory Tests Test 02/21/16 07:05 White Blood Count 13.4 TH/MM3 Red Blood Count 4.57 MIL/MM3 Hemoglobin 13.7 GM/DL Hematocrit 40.9 % Mean Corpuscular Volume 89.7 FL Mean Corpuscular Hemoglobin 30.0 PG Mean Corpuscular Hemoglobin 33.4 % Concent Red Cell Distribution Width 15.4 % Platelet Count 130 TH/MM3 Mean Platelet Volume 10.2 FL Sodium Level 138 MEQ/L Potassium Level 4.0 MEQ/L Chloride Level 105 MEQ/L Carbon Dioxide Level 25.7 MEQ/L Anion Gap 7 MEQ/L Blood Urea Nitrogen 15 MG/DL Creatinine 1.12 MG/DL Estimat Glomerular Filtration 68 ML/MIN Rate Random Glucose 170 MG/DL Calcium Level 6.9 MG/DL Protein Corrected Calcium 7.6 MG/DL Total Bilirubin 4.0 MG/DL Aspartate Amino Transf 51 U/L (AST/SGOT) Alanine Aminotransferase 126 U/L (ALT/SGPT) Alkaline Phosphatase 140 U/L Total Protein 5.7 GM/DL Albumin 2.1 GM/DL Lipase 2631 U/L Physical Exam General General Appearance: No Acute Distress, Comfortable, Anxious, Painful Eyes Eye Exam: Pupils Equal, Pupils Reactive, Extraocular Movement Intact, Jaundice Ears & Nose Ears & Nose Exam: Nasal Mucosa [place] Throat Throat Exam: Oral Mucosa [place] & Moist Neck Neck Exam: Neck Supple, Trachea Midline Pulmonary Resp Exam: Clear Bilaterally, Breath Sounds Equal, No Distress Cardiology CV Exam: Regular, Normal Sinus Rhythm Gastrointestinal/Abdomen GI Exam: Soft, Distended, Bowel Sounds Hypoactive GI Remarks tender to RUQ Musculoskeletal MS Exam: Joints Intact Integumentary Skin Exam: Warm, Dry Extremeties Extremities Exam: Pedal Pulses Palpable, Trace Edema Neurologic Neuro Exam: Alert, Awake, Oriented, Speech Clear, Moving All Extremities, No Focal Deficits Psychiatric Psych Exam: Appropriate Responses VTE Prophylaxis VTE Prophylaxis Device: SCDs PUD Prophylasis PUD Prophylaxis: Protonix Assessment/Plan Assessment/Plan SSESSMENT: 1. Acute pancreatitis. The patient denies drinking alcohol. Suspect due to gallstone. Rule out choledocholithiasis. 2. Bandemia and leukocytosis.possible cholangitis 3. Hyperglycemia, possible diabetes. 5. Hypertension. 6. Tachycardia PLAN: continue with present tx S/P ERCP with balloon and stone retrieval 02/20/16 still with significant pain Keep NPO IVF Pain management IV abx Appreciate GI input, waiting for further recommendations PPI for GI prophylaxis SCDs for DVT prophylaxis LFTs and lipase trending down BP poorly controlled, continue with Vasotec PRN when able to take PO, start Lopressor 12.5 mg PO BID Labs in am D/W RN D/W pt, sons, questions answered D/W Dr. Yung This patient was seen by myself and Dr. Yung, this note is written on his behalf. Hermila Dao Feb 21, 2016 11:37
[2016-02-21] MEDS ORDERED: PILL SPLITTER OTHER PRN (11:45)
[2016-02-21 12:00] VITALS: BP 159/85; PULSE 112; RESP 20; TEMP 99.5; O2SAT 93
--- NOTE | 2016-02-21 12:08 | HHI.GIFU ---
Subjective Remarks Up in chair. Still with significant LUQ/Epigastric pain. Abdomen distended, no bm. (Cynthia Hilliard) Objective Vitals I&O Vital Signs Date Time Temp Pulse Resp B/P Pulse Ox O2 Delivery O2 Flow Rate FiO2 02/21/16 08:00 99.1 110 20 166/82 94 02/21/16 00:00 98.6 115 22 156/70 94 02/20/16 19:45 98.8 112 16 151/95 95 Nasal Cannula 4 02/20/16 19:30 113 16 158/94 94 Nasal Cannula 4 02/20/16 19:15 107 16 169/97 97 Nasal Cannula 4 02/20/16 19:14 94 Nasal Cannula 4.00 02/20/16 19:08 94 4 02/20/16 19:00 107 14 151/94 96 Mechanical Ventilator 50 02/20/16 18:45 109 14 142/87 96 Mechanical Ventilator 50 02/20/16 18:35 45 02/20/16 18:35 97 45 02/20/16 18:30 50 02/20/16 18:30 102 14 132/89 96 Mechanical Ventilator 50 02/20/16 18:15 104 6 146/92 96 Mechanical Ventilator 50 02/20/16 18:00 110 14 154/92 96 Mechanical Ventilator 50 02/20/16 17:45 118 14 143/86 98 Mechanical Ventilator 50 02/20/16 17:34 50 02/20/16 17:34 99.3 123 20 143/83 98 Mechanical Ventilator 50 02/20/16 17:30 98 50 02/20/16 16:13 98.4 114 20 139/80 93 02/20/16 12:04 98.2 112 21 154/87 93 I/O 02/20/16 02/20/16 02/20/16 02/21/16 02/21/16 02/21/16 06:59 14:59 22:59 06:59 14:59 22:59 Intake Total 2575 ml 1388 ml 1725 ml Output Total 850 ml 800 ml 300 ml 200 ml Balance 1725 ml 588 ml 1425 ml -200 ml IV Total 2575 ml 1388 ml 325 ml Other 1400 ml Output Urine Total 850 ml 800 ml 300 ml 200 ml # Bowel Movements 0 Laboratory Laboratory Tests Test 02/21/16 07:05 White Blood Count 13.4 Red Blood Count 4.57 Hemoglobin 13.7 Hematocrit 40.9 Mean Corpuscular Volume 89.7 Mean Corpuscular Hemoglobin 30.0 Mean Corpuscular Hemoglobin 33.4 Concent Red Cell Distribution Width 15.4 Platelet Count 130 Mean Platelet Volume 10.2 Sodium Level 138 Potassium Level 4.0 Chloride Level 105 Carbon Dioxide Level 25.7 Anion Gap 7 Blood Urea Nitrogen 15 Creatinine 1.12 Estimat Glomerular Filtration 68 Rate Random Glucose 170 Calcium Level 6.9 Protein Corrected Calcium 7.6 Total Bilirubin 4.0 Aspartate Amino Transf 51 (AST/SGOT) Alanine Aminotransferase 126 (ALT/SGPT) Alkaline Phosphatase 140 Total Protein 5.7 Albumin 2.1 Lipase 2631 Imaging Last Impressions GI Procedure 02/20/16 0000 Signed Impressions: Service Date/Time: Saturday, February 20, 2016 16:45 - CONCLUSION: ERCP as above. William Escobar MD Cholangiopancreatography MRI 02/20/16 0000 Signed Impressions: Service Date/Time: Saturday, February 20, 2016 14:46 - CONCLUSION: 1. Biliary distention. At least two 3-4 mm stones and small amount of debris floating around in the distal common bile duct. A few similar size stones are in the gallbladder neck. I don't see an acutely obstructing stone of the duct or gallbladder. 2. Pancreatitis associated peripancreatic edema not significantly changed from the CT. No pancreatic duct dilatation. William Escobar MD Chest X-Ray 02/20/16 0000 Signed Impressions: Service Date/Time: Saturday, February 20, 2016 18:00 - CONCLUSION: Endotracheal tube tip at the keren. It should be pulled back a couple centimeters. There is left greater than right basilar atelectasis. William Escobar MD Abdomen/Pelvis CT 02/18/16 0000 Signed Impressions: Service Date/Time: Thursday, February 18, 2016 22:43 - CONCLUSION: There are some areas of lower density within the pancreas with significant peripancreatic fluid suspicious for pancreatitis. No drainable fluid collection or abscess is identified. The patient's common bile duct is dilated to 10 mm although no calcified stones are seen. The CBD is slightly more prominent than in December. Khoa Zhu MD Physical Exam HEENT: Normocephalic; atraumatic; no jaundice. CHEST: CTA CARDIAC: RRR. ABDOMEN: Abdomen distended, diffuse tenderness, no hepatosplenomegaly; bowel sounds are hypoactive. EXTREMITIES: No clubbing, cyanosis, or edema. SKIN: Normal; no rash; no jaundice. INTEGRATED MARKETING SPECIALIST: No focal deficits; alert and oriented times three. (Cynthia Hilliard KADE) Assessment and Plan Plan ASSESSMENT: - Acute pancreatitis. Abdomen/Pelvis CT (02/18/16)-----> There are some areas of lower density within the pancreas with significant peripancreatic fluid suspicious for pancreatitis. No drainable fluid collection or abscess is identified. The patient's common bile duct is dilated to 10 mm although no calcified stones are seen. The CBD is slightly more prominent than in December. MRCP (02/20/16)-----> 1. Biliary distention. At least two 3-4 mm stones and small amount of debris floating around in the distal common bile duct. A few similar size stones are in the gallbladder neck. I don't see an acutely obstructing stone of the duct or gallbladder. 2. Pancreatitis associated peripancreatic edema not significantly changed from the CT. No pancreatic duct dilatation. S/P ERCP (02/19/16)----> The ampulla was located in the second portion of the duodenum, appeared impacted and bulging, dilation CBD, Dilation intrahepatic ducts, multiple filling defects seen in the CBD, sphincterotomy followed by balloon sweep and 3 stones removed successfully. LFTs T. Bili 4.0, AST 51, ALT 126, Alk Phosph 140, Lipase trending down 2631. Clinically, quite distended, still with significant tenderness, hypo active bowel sounds. NPO, IVF, PPI - Cholithiasis, Choledocholithiasis, cholangitis. S/P ERCP with stone extraction as above. Will need cholecystectomy once cholangitis/pancreatitis resolves. Zosyn - Abdominal distention. Pt with significant distention/tenderness. No BM. WIll get KUB and consider starting reglan if he has ileus. - Elevated LFTs. S/P ERCP as above. T. Bili 4.0, AST 51, ALT 126, Alk Phosph 140 - GERD. PPI - Leukocytosis. Improving. WBC 13.4. Zosyn. Plan - NPO - IVF - PPI - KUB - Miralax 17gram po daily - Cont. Zosyn. - Consult [facility] for laparoscopic cholecystectomy once pancreatitis/cholangitis resolves. - Supportive care - Pt seen and examined by Dr. May and myself and this note is written on his behalf (Cynthia Hilliard) Physician Comments Patient was seen and examined, agree with above note. we will check labs, continue supportive care.surgical consult, no indication for ERCP at this time. (Hossein May MD) Cynthia Hilliard Feb 21, 2016 12:08 Hossein May MD Feb 21, 2016 21:50
[2016-02-21] MEDS: METOPROLOL TARTRATE 25 MG TAB PO SCH ×2 (12:30→20:50)
--- NOTE | 2016-02-21 13:14 | RADRPT ---
EXAM DATE/TIME: 02/21/2016 12:56 [facility] COMPARISON: No previous studies available for comparison. INDICATIONS : Distention. MEDICAL HISTORY : Hypertension. Gastroesophageal reflux disease. SURGICAL HISTORY : None. ENCOUNTER: Subsequent ACUITY: 3 days PAIN SCORE: 0/10 LOCATION: Abdomen FINDINGS: Supine view of the abdomen was performed. The abdominal bowel gas pattern demonstrates diffuse gaseo us distention of bowel, especially small bowel characteristic of a diffuse ileus. This is probably re lated to pancreatitis seen on recent CT. No free air. No acute bony abnormality. CONCLUSION: 1. Gaseous distention of bowel most characteristic of ileus. Jose Carlos Weeks MD on February 21, 2016 at 13:09 Board Certified Radiologist. This report was verified electronically.
--- NOTE | 2016-02-21 15:35 | PD.CONS ---
HPI Service General Surgery Consult Requested By Cynthia BRAUN Reason for Consult Biliary pancreatitis Primary Care Physician No Primary Care Physician History of Present Illness 55 yo M Czech-speaking male presented to the hospital 4 days ago with complaints of abdominal pain, nausea and vomiting. He has had some intermittent abdominal pain for quite some time but I cannot get exact time frame from him. The patient was evaluated and noted to have leukocytosis with significant elevation of lipase and LFTs. CT abdomen and pelvis confirmed pancreatitis and MRCP revealed common bile duct stones. Yesterday, the patient underwent ERCP with sphincterotomy and balloon stone extraction. I had a conversation with he and his son using the hourly sign language interpreter on the computer. The history is slightly limited due to this language barrier. Past Family Social History Past Medical History HTN GERD Past Surgical History None Reported Medications Reported Meds & Active Scripts Active Reported Metronidazole 500 Mg Tab 500 Mg PO TID Allergies: Coded Allergies: No Known Allergies (Verified , 02/18/16) Active Ordered Medications Current Medications Medications (Trade) Dose Ordered Sig/Koby Route Start Time Stop Time Status Last Admin (NS Flush) 2 ml UNSCH PRN FLUSH 02/18/16 22:30 02/19/16 02:44 (NS Flush) 2 ml BID FLUSH 02/19/16 09:00 02/20/16 21:00 (Tylenol) 650 mg Q4H PRN PO 02/18/16 22:30 (Zofran Inj) 4 mg Q6H PRN IVP 02/18/16 22:30 02/19/16 06:28 (Narcan Inj) 0.4 mg UNSCH PRN IV 02/18/16 22:30 (Vasotec Inj) 1.25 mg Q6H PRN IV PUSH 02/19/16 02:00 02/19/16 02:44 Pantoprazole Sodium 40 mg 40 mg Q24H IV PUSH 02/19/16 18:00 02/19/16 16:45 Piperacillin Sod/ Tazobactam Sod 50 ml @ 100 mls/hr Q6H IV 02/19/16 18:00 02/21/16 12:33 (D5W-02/19 NS 1000 ml Inj) 1,000 ml @ 150 mls/hr Q6H40M IV 02/20/16 17:30 02/21/16 04:54 Miscellaneous Information ALL NURSING DEPARTME... UNSCH PRN XX 02/20/16 18:00 02/21/16 17:59 (Dilaudid Pf Inj) 1.5 mg Q3H PRN IV PUSH 02/20/16 23:00 02/21/16 12:31 (Lopressor) 12.5 mg Q12HR PO 02/21/16 11:45 02/21/16 12:30 (Pill Splitter) 1 ea UNSCH PRN OTHER 02/21/16 11:45 (Miralax) 17 gm DAILY PO 02/21/16 12:15 Family History Noncontributory Social History No ETOH, tobacco, or drug use. Physical Exam Vital Signs Vital Signs Date Time Temp Pulse Resp B/P Pulse Ox O2 Delivery O2 Flow Rate FiO2 02/21/16 12:00 99.5 112 20 159/85 93 02/21/16 08:00 99.1 110 20 166/82 94 02/21/16 00:00 98.6 115 22 156/70 94 02/20/16 19:45 98.8 112 16 151/95 95 Nasal Cannula 4 02/20/16 19:30 113 16 158/94 94 Nasal Cannula 4 02/20/16 19:15 107 16 169/97 97 Nasal Cannula 4 02/20/16 19:14 94 Nasal Cannula 4.00 02/20/16 19:08 94 4 02/20/16 19:00 107 14 151/94 96 Mechanical Ventilator 50 02/20/16 18:45 109 14 142/87 96 Mechanical Ventilator 50 02/20/16 18:35 45 02/20/16 18:35 97 45 02/20/16 18:30 50 02/20/16 18:30 102 14 132/89 96 Mechanical Ventilator 50 02/20/16 18:15 104 6 146/92 96 Mechanical Ventilator 50 02/20/16 18:00 110 14 154/92 96 Mechanical Ventilator 50 02/20/16 17:45 118 14 143/86 98 Mechanical Ventilator 50 02/20/16 17:34 50 02/20/16 17:34 99.3 123 20 143/83 98 Mechanical Ventilator 50 02/20/16 17:30 98 50 02/20/16 16:13 98.4 114 20 139/80 93 Physical Exam GENERAL: Awake and alert. No acute distress. Cooperative. HEAD: Normocephalic. Atraumatic. EYES: Pupils equal round and reactive to light bilaterally. CHEST: Lungs clear to auscultation bilaterally with no wheezing or rhonchi. No respiratory distress. CARDIOVASCULAR: Regular rate and rhythm. ABDOMEN: Rounded, distended. Mild diffuse tenderness to palpation. No rebound or guarding. EXTREMITIES: No cyanosis or edema. SKIN: Warm, dry, nonjaundiced. Laboratory Laboratory Tests Test 02/21/16 07:05 White Blood Count 13.4 Red Blood Count 4.57 Hemoglobin 13.7 Hematocrit 40.9 Mean Corpuscular Volume 89.7 Mean Corpuscular Hemoglobin 30.0 Mean Corpuscular Hemoglobin 33.4 Concent Red Cell Distribution Width 15.4 Platelet Count 130 Mean Platelet Volume 10.2 Sodium Level 138 Potassium Level 4.0 Chloride Level 105 Carbon Dioxide Level 25.7 Anion Gap 7 Blood Urea Nitrogen 15 Creatinine 1.12 Estimat Glomerular Filtration 68 Rate Random Glucose 170 Calcium Level 6.9 Protein Corrected Calcium 7.6 Total Bilirubin 4.0 Aspartate Amino Transf 51 (AST/SGOT) Alanine Aminotransferase 126 (ALT/SGPT) Alkaline Phosphatase 140 Total Protein 5.7 Albumin 2.1 Lipase 2631 Result Diagram: 02/21/16 0702/21/16 0705 Imaging Last Impressions Abdomen X-Ray 02/21/16 0000 Signed Impressions: Service Date/Time: Sunday, February 21, 2016 12:56 - CONCLUSION: 1. Gaseous distention of bowel most characteristic of ileus. Jose Carlos Weeks MD GI Procedure 02/20/16 0000 Signed Impressions: Service Date/Time: Saturday, February 20, 2016 16:45 - CONCLUSION: ERCP as above. William Escobar MD Cholangiopancreatography MRI 02/20/16 0000 Signed Impressions: Service Date/Time: Saturday, February 20, 2016 14:46 - CONCLUSION: 1. Biliary distention. At least two 3-4 mm stones and small amount of debris floating around in the distal common bile duct. A few similar size stones are in the gallbladder neck. I don't see an acutely obstructing stone of the duct or gallbladder. 2. Pancreatitis associated peripancreatic edema not significantly changed from the CT. No pancreatic duct dilatation. William Escobar MD Chest X-Ray 02/20/16 0000 Signed Impressions: Service Date/Time: Saturday, February 20, 2016 18:00 - CONCLUSION: Endotracheal tube tip at the keren. It should be pulled back a couple centimeters. There is left greater than right basilar atelectasis. William Escobar MD Abdomen/Pelvis CT 02/18/16 0000 Signed Impressions: Service Date/Time: Thursday, February 18, 2016 22:43 - CONCLUSION: There are some areas of lower density within the pancreas with significant peripancreatic fluid suspicious for pancreatitis. No drainable fluid collection or abscess is identified. The patient's common bile duct is dilated to 10 mm although no calcified stones are seen. The CBD is slightly more prominent than in December. Khoa Zhu MD Assessment and Plan Assessment and Plan 55-year-old male with gallstone pancreatitis and choledocholithiasis status post ERCP. He continues to have abdominal pain and distention. Overall labs are improving. He now has mild leukocytosis. LFTs are improving except for bilirubin which remains 4. The patient will benefit from cholecystectomy at some point. I would like for him to clinically improve more than he has at this time. I will continue to follow along and make further recommendations. I had a long discussion with the patient and his son using the site interpreter and nataliya a diagram explaining the gallstone pancreatitis, CBD stone removal and need for cholecystectomy in the future. Grady Sanchez MD Feb 21, 2016 15:35
[2016-02-21] MEDS: POLYETHYLENE GLYCOL 17 GM PKG PO SCH (15:36)
[2016-02-21] MEDS: PANTOPRAZOLE SODIUM 40 MG VIAL IV PUSH SCH (15:38)
[2016-02-21 16:00] VITALS: BP 161/79; PULSE 105; RESP 22; TEMP 99.5; O2SAT 93
[2016-02-21 20:00] VITALS: BP 181/86; PULSE 102; PULSE 99; RESP 22; TEMP 100.3; O2SAT 94
[2016-02-22] VITALS (9 sets, daily range): BP systolic 168–195; BP diastolic 82–99; PULSE 78–92; RESP 18–22; TEMP 98.2–100.8; O2SAT 92–98
[2016-02-22] MEDS: PIPERACIL-TAZO 3.375 GM PREMIX 50 ML IV SCH ×4 (00:21→17:32)
[2016-02-22] MEDS: ENALAPRILAT 1.25 MG/ML VIAL IV PUSH PRN ×2 (00:21→08:50)
[2016-02-22] MEDS: DEXT 5%-NACL 0.45% 1000 ML INJ 1,000 ML IV SCH (00:23)
[2016-02-22] MEDS: HYDROmorphone HCL PF 1 MG/ML VIAL IV PUSH PRN ×6 (00:24→21:37)
[2016-02-22 05:19] LABS: AUTOMATED NEUTROPHIL # 10.3 TH/MM3 (1.8-7.7); EOSINOPHIL % 0.3 % (0.0-4.0); HEMATOCRIT 39.3 % (39.0-51.0); HEMO FLAGS DIFF FINAL; LYMPH % 7.9 % (9.0-44.0); MEAN CELL VOLUME 90.1 FL (80.0-100.0); MEAN CORPUSCULAR HEMOGLOBIN 29.6 PG (27.0-34.0); MEAN CORPUSCULAR HGB CONC 32.8 % (32.0-36.0); MONO % 11.6 % (0.0-8.0); NEUT % 80.2 % (16.0-70.0); PLATELET COUNT 172 TH/MM3 (150-450); RED BLOOD COUNT 4.36 MIL/MM3 (4.50-5.90); RED CELL DISTRIBUTION WIDTH 14.9 % (11.6-17.2); WHITE BLOOD COUNT 12.9 TH/MM3 (4.0-11.0)
[2016-02-22 05:33] LABS: ALT (GPT) 102 U/L (12-78); ANION GAP 9 MEQ/L (5-15); AST (GOT) 39 U/L (15-37); BICARBONATE 27.3 MEQ/L (21.0-32.0); BLOOD UREA NITROGEN 14 MG/DL (7-18); CHLORIDE 103 MEQ/L (98-107); GLOMERULAR FILTRATION RATE 83 ML/MIN (>89); POTASSIUM 3.8 MEQ/L (3.5-5.1); SODIUM (NA) 139 MEQ/L (136-145)
[2016-02-22 05:35] LABS: ALKALINE PHOSPHATASE 113 U/L (45-117); TOTAL BILIRUBIN ADULT 2.7 MG/DL (0.2-1.0)
[2016-02-22] MEDS: POLYETHYLENE GLYCOL 17 GM PKG PO SCH (08:51)
[2016-02-22] MEDS: METOPROLOL TARTRATE 25 MG TAB PO SCH ×2 (08:51→21:35)
[2016-02-22] MEDS: SODIUM CHLORIDE 0.9% FLUSH 5 ML FLUSH FLUSH SCH ×2 (08:51→21:37)
--- NOTE | 2016-02-22 10:14 | HHI.PR ---
Subjective Subjective Remarks pt. awake, oriented x 3 speaks Vietnamese, able to communicate states RUQ and epigastric wax pot tender, Dilaudid does help Abd. distended No BM yet febrile overnight 100.3 noted tachypneic with audible wheezing, denies tobacco abuse, no COPD, no asthma no CP Tele reviewed, HR improved Review of Systems Constitutional Constitutional Remarks 12 point ROS completed, limited, Vitals/Results Intake & Output 02/21/16 02/21/16 02/22/16 15:00 23:00 07:00 Intake Total 346 ml 1498 ml Output Total 500 ml Balance 346 ml 998 ml IV Total 346 ml 1498 ml Output Urine Total 500 ml # Bowel Movements 0 Vital Signs Vital Signs Date Time Temp Pulse Resp B/P Pulse Ox O2 Delivery O2 Flow Rate FiO2 02/22/16 08:00 98.7 86 20 195/97 94 02/22/16 04:00 98.8 90 20 173/99 97 02/22/16 00:00 98.5 89 22 168/82 96 02/21/16 20:00 99 02/21/16 20:00 100.3 102 22 181/86 94 02/21/16 16:00 99.5 105 22 161/79 93 02/21/16 12:00 99.5 112 20 159/85 93 CBC/BMP: 02/22/16 0409 02/22/16 0409 Lab Results Laboratory Tests Test 02/22/16 04:09 White Blood Count 12.9 TH/MM3 Red Blood Count 4.36 MIL/MM3 Hemoglobin 12.9 GM/DL Hematocrit 39.3 % Mean Corpuscular Volume 90.1 FL Mean Corpuscular Hemoglobin 29.6 PG Mean Corpuscular Hemoglobin 32.8 % Concent Red Cell Distribution Width 14.9 % Platelet Count 172 TH/MM3 Mean Platelet Volume 10.1 FL Neutrophils (%) (Auto) 80.2 % Lymphocytes (%) (Auto) 7.9 % Monocytes (%) (Auto) 11.6 % Eosinophils (%) (Auto) 0.3 % Basophils (%) (Auto) 0.0 % Neutrophils # (Auto) 10.3 TH/MM3 Lymphocytes # (Auto) 1.0 TH/MM3 Monocytes # (Auto) 1.5 TH/MM3 Eosinophils # (Auto) 0.0 TH/MM3 Basophils # (Auto) 0.0 TH/MM3 CBC Comment DIFF FINAL Differential Comment Sodium Level 139 MEQ/L Potassium Level 3.8 MEQ/L Chloride Level 103 MEQ/L Carbon Dioxide Level 27.3 MEQ/L Anion Gap 9 MEQ/L Blood Urea Nitrogen 14 MG/DL Creatinine 0.94 MG/DL Estimat Glomerular Filtration 83 ML/MIN Rate Random Glucose 138 MG/DL Calcium Level 7.6 MG/DL Total Bilirubin 2.7 MG/DL Aspartate Amino Transf 39 U/L (AST/SGOT) Alanine Aminotransferase 102 U/L (ALT/SGPT) Alkaline Phosphatase 113 U/L Total Protein 5.9 GM/DL Albumin 2.1 GM/DL Lipase 734 U/L Physical Exam General General Appearance: Well Developed, Painful Eyes Eye Exam: Pupils Equal, Pupils Reactive, Extraocular Movement Intact, Jaundice Ears & Nose Ears & Nose Exam: Nasal Mucosa [place] Throat Throat Exam: Oral Mucosa [place] & Moist Neck Neck Exam: Neck Supple, Trachea Midline Pulmonary Resp Exam: Breath Sounds Equal, No Distress Resp Remarks exp. wheezes, faint bibasilar rales and diminished Cardiology CV Exam: Regular, Normal Sinus Rhythm Gastrointestinal/Abdomen GI Exam: Distended, Bowel Sounds Hypoactive GI Remarks tender to RUQ and epigastric area Musculoskeletal MS Exam: Joints Intact Integumentary Skin Exam: Warm, Dry Extremeties Extremities Exam: Pedal Pulses Palpable, Trace Edema Neurologic Neuro Exam: Alert, Awake, Oriented, Speech Clear, Moving All Extremities, No Focal Deficits Psychiatric Psych Exam: Appropriate Responses VTE Prophylaxis VTE Prophylaxis Device: SCDs PUD Prophylasis PUD Prophylaxis: Protonix Assessment/Plan Assessment/Plan ASSESSMENT: 1. Acute pancreatitis. The patient denies drinking alcohol. Suspect due to gallstone. Rule out choledocholithiasis. 2. Bandemia and leukocytosis.possible cholangitis 3. Hyperglycemia, possible diabetes. 5. Hypertension. 6. Tachycardia-improved 7. Febrile with tachypnea, rales, wheezes PLAN: continue with present tx S/P ERCP with balloon and stone retrieval 02/20/16 Appreciate GI input, recommended surgical eval Dr. Sanchez evaluated, recommends to wait until pt. more stable before proceeding with cholecystectomy T bili improved, LFTs and lipase trending trending down. Abd. distended, abd xray shows ileus. Continue Miralax, no BM yet NPO, continue hydration Continue empiric abx Dilaudid for pain management PPI for GI prophylaxis SCDs for DVT prophylaxis BP poorly controlled, continue with Vasotec PRN Started Lopressor 12.5 mg PO BID HR improved Noted with fever, wheezing/rales, tachypneic will check CXR Jan. IVF OOB with assist PT eval today IS q 2 WA Labs in am D/W RN D/W pt D/W Dr. Yung This patient was seen by myself and Dr. Yung, this note is written on his behalf. Hermila Dao Feb 22, 2016 10:14
--- NOTE | 2016-02-22 11:09 | RADRPT ---
EXAM DATE/TIME: 02/22/2016 10:34 [facility] COMPARISON: CHEST SINGLE AP, February 20, 2016, 18:00. INDICATIONS : SOB MEDICAL HISTORY : Pancreatitis. SURGICAL HISTORY : None. ENCOUNTER: Subsequent ACUITY: 3 days PAIN SCORE: 0/10 LOCATION: chest FINDINGS: Hazy bibasilar parenchymal opacities are present consistent with infiltrate or atelectasis and associ ated effusions. Heart appears mildly enlarged. CONCLUSION: Bibasilar infiltrates and effusions. William Catalan MD on February 22, 2016 at 11:06 Board Certified Radiologist. This report was verified electronically.
[2016-02-22] MEDS ORDERED: VANCOMYCIN INJ 1,000 MG in SODIUM CHLOR 0.9% 250 ML INJ 250 ML IV ONE (12:00)
[2016-02-22] MEDS ORDERED: FUROSEMIDE 20 MG/2 ML VIAL IV PUSH ONE (12:00)
[2016-02-22] MEDS: RESP: ALBUTEROL 2.5 MG/IPRATROPIUM 0.5 MG NEB (SCH) NEB ×3 (12:19→19:36)
[2016-02-22] MEDS ORDERED: Vancomycin Consult Pharmacy 1 EA XX SCH (13:15)
--- NOTE | 2016-02-22 14:24 | HHI.GIFU ---
Subjective Remarks Resting in bed. Still with abdominal discomfort and bloating. No bm yet. Not quite as tender on exam. (Cynthia Hilliard) Objective Vitals I&O Vital Signs Date Time Temp Pulse Resp B/P Pulse Ox O2 Delivery O2 Flow Rate FiO2 02/22/16 12:00 98.2 78 20 194/99 98 02/22/16 10:33 99.6 84 169/84 02/22/16 09:31 92 Nasal Cannula 4.00 02/22/16 08:00 98.7 86 20 195/97 94 02/22/16 04:00 98.8 90 20 173/99 97 02/22/16 00:00 98.5 89 22 168/82 96 02/21/16 20:00 99 02/21/16 20:00 100.3 102 22 181/86 94 02/21/16 16:00 99.5 105 22 161/79 93 I/O 02/21/16 02/21/16 02/21/16 02/22/16 02/22/16 02/22/16 07:00 15:00 23:00 07:00 15:00 23:00 Intake Total 346 ml 1498 ml Output Total 200 ml 500 ml Balance -200 ml 346 ml 998 ml IV Total 346 ml 1498 ml Output Urine Total 200 ml 500 ml # Bowel Movements 0 Laboratory Laboratory Tests Test 02/22/16 04:09 White Blood Count 12.9 Red Blood Count 4.36 Hemoglobin 12.9 Hematocrit 39.3 Mean Corpuscular Volume 90.1 Mean Corpuscular Hemoglobin 29.6 Mean Corpuscular Hemoglobin 32.8 Concent Red Cell Distribution Width 14.9 Platelet Count 172 Mean Platelet Volume 10.1 Neutrophils (%) (Auto) 80.2 Lymphocytes (%) (Auto) 7.9 Monocytes (%) (Auto) 11.6 Eosinophils (%) (Auto) 0.3 Basophils (%) (Auto) 0.0 Neutrophils # (Auto) 10.3 Lymphocytes # (Auto) 1.0 Monocytes # (Auto) 1.5 Eosinophils # (Auto) 0.0 Basophils # (Auto) 0.0 CBC Comment DIFF FINAL Differential Comment Sodium Level 139 Potassium Level 3.8 Chloride Level 103 Carbon Dioxide Level 27.3 Anion Gap 9 Blood Urea Nitrogen 14 Creatinine 0.94 Estimat Glomerular Filtration 83 Rate Random Glucose 138 Calcium Level 7.6 Total Bilirubin 2.7 Aspartate Amino Transf 39 (AST/SGOT) Alanine Aminotransferase 102 (ALT/SGPT) Alkaline Phosphatase 113 Total Protein 5.9 Albumin 2.1 Lipase 734 Imaging Last Impressions Chest X-Ray 02/22/16 0000 Signed Impressions: Service Date/Time: Monday, February 22, 2016 10:34 - CONCLUSION: Bibasilar infiltrates and effusions. William Catalan MD Abdomen X-Ray 02/21/16 0000 Signed Impressions: Service Date/Time: Sunday, February 21, 2016 12:56 - CONCLUSION: 1. Gaseous distention of bowel most characteristic of ileus. Jose Carlos Weeks MD GI Procedure 02/20/16 0000 Signed Impressions: Service Date/Time: Saturday, February 20, 2016 16:45 - CONCLUSION: ERCP as above. William Escobar MD Cholangiopancreatography MRI 02/20/16 0000 Signed Impressions: Service Date/Time: Saturday, February 20, 2016 14:46 - CONCLUSION: 1. Biliary distention. At least two 3-4 mm stones and small amount of debris floating around in the distal common bile duct. A few similar size stones are in the gallbladder neck. I don't see an acutely obstructing stone of the duct or gallbladder. 2. Pancreatitis associated peripancreatic edema not significantly changed from the CT. No pancreatic duct dilatation. William Escobar MD Abdomen/Pelvis CT 02/18/16 0000 Signed Impressions: Service Date/Time: Thursday, February 18, 2016 22:43 - CONCLUSION: There are some areas of lower density within the pancreas with significant peripancreatic fluid suspicious for pancreatitis. No drainable fluid collection or abscess is identified. The patient's common bile duct is dilated to 10 mm although no calcified stones are seen. The CBD is slightly more prominent than in December. Khoa Zhu MD Physical Exam HEENT: Normocephalic; atraumatic; no jaundice. CHEST: CTA CARDIAC: RRR. ABDOMEN: Abdomen distended, diffuse tenderness- but slightly improved from yesterday, no hepatosplenomegaly; bowel sounds are hypoactive. EXTREMITIES: No clubbing, cyanosis, or edema. SKIN: Normal; no rash; no jaundice. 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 (Cynthia Hilliard) Assessment and Plan Plan ASSESSMENT: - Acute pancreatitis. Abdomen/Pelvis CT (02/18/16)-----> There are some areas of lower density within the pancreas with significant peripancreatic fluid suspicious for pancreatitis. No drainable fluid collection or abscess is identified. The patient's common bile duct is dilated to 10 mm although no calcified stones are seen. The CBD is slightly more prominent than in December. MRCP (02/20/16)-----> 1. Biliary distention. At least two 3-4 mm stones and small amount of debris floating around in the distal common bile duct. A few similar size stones are in the gallbladder neck. I don't see an acutely obstructing stone of the duct or gallbladder. 2. Pancreatitis associated peripancreatic edema not significantly changed from the CT. No pancreatic duct dilatation. S/P ERCP (02/19/16)----> The ampulla was located in the second portion of the duodenum, appeared impacted and bulging, dilation CBD, Dilation intrahepatic ducts, multiple filling defects seen in the CBD, sphincterotomy followed by balloon sweep and 3 stones removed successfully. LFTs Improving. Bili 2.7, AST 39, ALT 102, Alk Phosph 113, Lipase trending down 734. 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 NPO, IVF, PPI - Ileus. No bm. Will add Reglan. SSE x 2. Miralax. KUB in am. Clear liquids. - Cholithiasis, Choledocholithiasis, cholangitis. S/P ERCP with stone extraction as above. Will need cholecystectomy once cholangitis/pancreatitis resolves. Zosyn - Elevated LFTs. S/P ERCP as above. Improving as above. - GERD. PPI - Leukocytosis. Improving. WBC 12.9. Zosyn. Plan - Clear liquids - Reglan 10mg IV q8h - SSE x 2 - Miralax 17gram po daily - IVF - PPI - KUB in am - Cont. Zosyn. - Consult [facility] for laparoscopic cholecystectomy once pancreatitis/cholangitis resolves. - Supportive care - Pt seen and examined by Dr. May and myself and this note is written on his behalf (Cynthia Hilliard) Physician Comments Patient was seen and examined, agree with above note and plan, labs for AM, KUB in am (Hossein May MD) Cynthia Hilliard Feb 22, 2016 14:24 Hossein May MD Feb 22, 2016 20:50
--- NOTE | 2016-02-22 15:14 | HHI.PR ---
Subjective Subjective Notes STill has abdominal pain and distention. No nausea. Labs improving. Objective Vitals/I&O Vital Signs Date Time Temp Pulse Resp B/P Pulse Ox O2 Delivery O2 Flow Rate FiO2 02/22/16 12:00 98.2 78 20 194/99 98 02/22/16 09:31 Nasal Cannula 4.00 02/20/16 19:00 50 Labs Laboratory Tests Test 02/22/16 04:09 White Blood Count 12.9 Red Blood Count 4.36 Hemoglobin 12.9 Hematocrit 39.3 Mean Corpuscular Volume 90.1 Mean Corpuscular Hemoglobin 29.6 Mean Corpuscular Hemoglobin 32.8 Concent Red Cell Distribution Width 14.9 Platelet Count 172 Mean Platelet Volume 10.1 Neutrophils (%) (Auto) 80.2 Lymphocytes (%) (Auto) 7.9 Monocytes (%) (Auto) 11.6 Eosinophils (%) (Auto) 0.3 Basophils (%) (Auto) 0.0 Neutrophils # (Auto) 10.3 Lymphocytes # (Auto) 1.0 Monocytes # (Auto) 1.5 Eosinophils # (Auto) 0.0 Basophils # (Auto) 0.0 CBC Comment DIFF FINAL Differential Comment Sodium Level 139 Potassium Level 3.8 Chloride Level 103 Carbon Dioxide Level 27.3 Anion Gap 9 Blood Urea Nitrogen 14 Creatinine 0.94 Estimat Glomerular Filtration 83 Rate Random Glucose 138 Calcium Level 7.6 Total Bilirubin 2.7 Aspartate Amino Transf 39 (AST/SGOT) Alanine Aminotransferase 102 (ALT/SGPT) Alkaline Phosphatase 113 Total Protein 5.9 Albumin 2.1 Lipase 734 Radiology Last Impressions Abdomen X-Ray 02/21/16 0000 Signed Impressions: Service Date/Time: Sunday, February 21, 2016 12:56 - CONCLUSION: 1. Gaseous distention of bowel most characteristic of ileus. Jose Carlos Weeks MD GI Procedure 02/20/16 0000 Signed Impressions: Service Date/Time: Saturday, February 20, 2016 16:45 - CONCLUSION: ERCP as above. William Escobar MD Cholangiopancreatography MRI 02/20/16 0000 Signed Impressions: Service Date/Time: Saturday, February 20, 2016 14:46 - CONCLUSION: 1. Biliary distention. At least two 3-4 mm stones and small amount of debris floating around in the distal common bile duct. A few similar size stones are in the gallbladder neck. I don't see an acutely obstructing stone of the duct or gallbladder. 2. Pancreatitis associated peripancreatic edema not significantly changed from the CT. No pancreatic duct dilatation. William Escobar MD Chest X-Ray 02/20/16 0000 Signed Impressions: Service Date/Time: Saturday, February 20, 2016 18:00 - CONCLUSION: Endotracheal tube tip at the keren. It should be pulled back a couple centimeters. There is left greater than right basilar atelectasis. William Escobar MD Abdomen/Pelvis CT 02/18/16 0000 Signed Impressions: Service Date/Time: Thursday, February 18, 2016 22:43 - CONCLUSION: There are some areas of lower density within the pancreas with significant peripancreatic fluid suspicious for pancreatitis. No drainable fluid collection or abscess is identified. The patient's common bile duct is dilated to 10 mm although no calcified stones are seen. The CBD is slightly more prominent than in December. Khoa Zhu MD Narrative Exam No distress, awake and alert Pulm: bilateral wheezing Abd: distended, soft, moderate ttp diffusely worst in epigastrium A/P Assessment and Plan 55 yo M with gallstone pancreatitis, choledocholithiasis s/p ERCP with stone extraction. Now wheezing, effusions on CXR. Significant distention and ileus. WIll take him some time to recover. Needs continued supportive medical care. Likely will need at least a few days or maybe weeks before lap mich. I will follow peripherally. Grady Sanchez MD Feb 22, 2016 15:14
[2016-02-22 16:37] LABS: HEMOGLOBIN A1a 0.7 %; HEMOGLOBIN A1b 1.6 %; HEMOGLOBIN Ao 84.7 %; HEMOGLOBIN LA1C 2.1 %; HEMOGLOBIN P3 3.9 %
[2016-02-22] MEDS: metroNIDAZOLE 500 MG INJ 100 ML IV SCH ×2 (16:37→21:38)
[2016-02-22] MEDS: PANTOPRAZOLE SODIUM 40 MG VIAL IV PUSH SCH (17:31)
[2016-02-22] MEDS: METOCLOPRAMIDE HCL 10 MG/2 ML VIAL IV PUSH SCH (21:36)
[2016-02-22] MEDS: VANCOMYCIN INJ 1,250 MG in SODIUM CHLOR 0.9% 250 ML INJ 250 ML IV SCH (22:44)
[2016-02-23] VITALS (9 sets, daily range): BP systolic 165–197; BP diastolic 83–101; PULSE 75–90; RESP 18–24; TEMP 98.2–100.1; O2SAT 91–98
[2016-02-23] MEDS: PIPERACIL-TAZO 3.375 GM PREMIX 50 ML IV SCH ×4 (01:16→18:38)
[2016-02-23] MEDS: SODIUM CHLORIDE 0.9% FLUSH 5 ML FLUSH FLUSH PRN (01:19)
[2016-02-23] MEDS: HYDROmorphone HCL PF 1 MG/ML VIAL IV PUSH PRN ×6 (01:19→22:32)
[2016-02-23] MEDS: ENALAPRILAT 1.25 MG/ML VIAL IV PUSH PRN ×2 (03:17→12:02)
[2016-02-23] MEDS: metroNIDAZOLE 500 MG INJ 100 ML IV SCH ×3 (04:57→22:30)
[2016-02-23] MEDS: METOCLOPRAMIDE HCL 10 MG/2 ML VIAL IV PUSH SCH ×3 (04:58→22:31)
--- NOTE | 2016-02-23 07:13 | RADRPT ---
EXAM DATE/TIME: 02/23/2016 06:57 [facility] COMPARISON: ABDOMEN KUB ONLY, February 21, 2016, 12:56. INDICATIONS : Abdominal distention, evaluate ileus MEDICAL HISTORY : Hypertension. Gastroesophageal reflux disease. SURGICAL HISTORY : None. ENCOUNTER: Subsequent ACUITY: 4 - 6 days PAIN SCORE: 0/10 LOCATION: Bilateral abdomen FINDINGS: Supine view of the abdomen was performed. The abdominal bowel gas pattern is normal. No abnormal ma sses, calcifications, or organomegaly is seen. Small bowel remains distended but clearly improved sin ce the third The osseous structures are unremarkable. CONCLUSION: Improving examination. Some small bowel air remains but definitely improved since the previous film Khoa Zhu MD on February 23, 2016 at 7:12 Board Certified Radiologist. This report was verified electronically.
[2016-02-23] MEDS: RESP: ALBUTEROL 2.5 MG/IPRATROPIUM 0.5 MG NEB (SCH) NEB ×4 (07:17→20:25)
[2016-02-23 08:38] LABS: AUTOMATED NEUTROPHIL # 10.7 TH/MM3 (1.8-7.7); BASOPHIL % 0.3 % (0.0-2.0); EOSINOPHIL # 0.1 TH/MM3 (0-0.4); EOSINOPHIL % 0.9 % (0.0-4.0); HEMATOCRIT 36.8 % (39.0-51.0); LYMPH % 7.7 % (9.0-44.0); MEAN CELL VOLUME 89.5 FL (80.0-100.0); MEAN CORPUSCULAR HGB CONC 33.5 % (32.0-36.0); MONO % 12.9 % (0.0-8.0); NEUT % 78.2 % (16.0-70.0); PLATELET COUNT 209 TH/MM3 (150-450); RED BLOOD COUNT 4.12 MIL/MM3 (4.50-5.90); RED CELL DISTRIBUTION WIDTH 14.6 % (11.6-17.2); WHITE BLOOD COUNT 13.6 TH/MM3 (4.0-11.0)
[2016-02-23 08:40] LABS: HEMO FLAGS AUTO DIFF
[2016-02-23] MEDS: VANCOMYCIN INJ 1,250 MG in SODIUM CHLOR 0.9% 250 ML INJ 250 ML IV SCH ×2 (08:53→22:30)
[2016-02-23] MEDS: METOPROLOL TARTRATE 25 MG TAB PO SCH ×2 (08:54→22:31)
[2016-02-23] MEDS: SODIUM CHLORIDE 0.9% FLUSH 5 ML FLUSH FLUSH SCH ×2 (08:55→21:00)
[2016-02-23] MEDS ORDERED: metroNIDAZOLE 500 MG INJ 100 ML IV SCH (09:00)
[2016-02-23] MEDS: POLYETHYLENE GLYCOL 17 GM PKG PO SCH (09:00)
[2016-02-23 09:15] LABS: BICARBONATE 34.1 MEQ/L (21.0-32.0); CALCIUM-PROTEIN CORRECTED 7.8 MG/DL (8.5-10.1); POTASSIUM 3.2 MEQ/L (3.5-5.1); TOTAL BILIRUBIN ADULT 1.7 MG/DL (0.2-1.0)
[2016-02-23 09:32] LABS: BANDS 5 % (0-6); MYELOCYTES 1 % (0-0); NEUTROPHIL # MANUAL DIFF 12.2 TH/MM3 (1.8-7.7); POLYS (SEG NEUTROPHILS) 84 % (16-70); WBC DIFF SAMPLE 100
[2016-02-23 09:34] LABS: PLATELET ESTIMATE SMEAR NORMAL (NORMAL); PLATELET MORPHOLOGY NORMAL (NORMAL); SCAN/DIFF FINAL DIFF MANUAL
--- NOTE | 2016-02-23 10:32 | HHI.PR ---
Subjective Subjective Remarks abdomen less tender Abd. less distended, had small BM yesterday after enema adv. to clear liquid per GI, tolerated well, no n/v febrile overnight 100.8 inc. wheezing, mild cough no cp using IS (Hermila Dao) Review of Systems Constitutional Constitutional Remarks 12 point ROS completed, limited, (Hermila Dao) Vitals/Results Intake & Output 02/22/16 02/22/16 02/23/16 14:59 22:59 06:59 Intake Total 1330 ml 916 ml Output Total 450 ml 300 ml Balance 880 ml 616 ml Intake Oral 840 ml 120 ml IV Total 490 ml 796 ml Output Urine Total 450 ml 300 ml # Bowel Movements 1 Vital Signs Vital Signs Date Time Temp Pulse Resp B/P Pulse Ox O2 Delivery O2 Flow Rate FiO2 02/23/16 08:00 98.8 80 20 166/83 95 02/23/16 07:17 91 Nasal Cannula 3.00 02/23/16 03:00 98.3 86 24 165/87 91 02/23/16 00:00 98.4 90 18 175/87 94 02/22/16 20:00 87 02/22/16 20:00 100.8 92 18 185/88 94 02/22/16 19:36 95 Nasal Cannula 3.00 02/22/16 16:00 99.3 79 22 169/90 95 02/22/16 12:00 98.2 78 20 194/99 98 02/22/16 10:33 99.6 84 169/84 (Hermila Dao) CBC/BMP: 02/23/16 0718 02/23/16 0718 Lab Results Laboratory Tests Test 02/23/16 07:18 White Blood Count 13.6 TH/MM3 Red Blood Count 4.12 MIL/MM3 Hemoglobin 12.3 GM/DL Hematocrit 36.8 % Mean Corpuscular Volume 89.5 FL Mean Corpuscular Hemoglobin 30.0 PG Mean Corpuscular Hemoglobin 33.5 % Concent Red Cell Distribution Width 14.6 % Platelet Count 209 TH/MM3 Mean Platelet Volume 9.5 FL Neutrophils (%) (Auto) 78.2 % Lymphocytes (%) (Auto) 7.7 % Monocytes (%) (Auto) 12.9 % Eosinophils (%) (Auto) 0.9 % Basophils (%) (Auto) 0.3 % Neutrophils # (Auto) 10.7 TH/MM3 Lymphocytes # (Auto) 1.0 TH/MM3 Monocytes # (Auto) 1.8 TH/MM3 Eosinophils # (Auto) 0.1 TH/MM3 Basophils # (Auto) 0.0 TH/MM3 CBC Comment AUTO DIFF Differential Total Cells 100 Counted Neutrophils % (Manual) 84 % Band Neutrophils % 5 % Lymphocytes % 2 % Monocytes % 8 % Neutrophils # (Manual) 12.2 TH/MM3 Myelocytes 1 % Differential Comment FINAL DIFF MANUAL Platelet Estimate NORMAL Platelet Morphology Comment NORMAL Red Cell Morphology Comment NORMAL Sodium Level 138 MEQ/L Potassium Level 3.2 MEQ/L Chloride Level 97 MEQ/L Carbon Dioxide Level 34.1 MEQ/L Anion Gap 7 MEQ/L Blood Urea Nitrogen 12 MG/DL Creatinine 0.83 MG/DL Estimat Glomerular Filtration 96 ML/MIN Rate Random Glucose 125 MG/DL Calcium Level 7.2 MG/DL Protein Corrected Calcium 7.8 MG/DL Total Bilirubin 1.7 MG/DL Aspartate Amino Transf 33 U/L (AST/SGOT) Alanine Aminotransferase 73 U/L (ALT/SGPT) Alkaline Phosphatase 110 U/L Total Protein 5.9 GM/DL Albumin 1.9 GM/DL Lipase 218 U/L (Hermila Dao G. WIRE TRANSFER CLERK) Physical Exam General General Appearance: Well Developed, Well Nourished Appearance Remarks tachypneic (Hermila Dao G. WIRE TRANSFER CLERK) Eyes Eye Exam: Pupils Equal, Pupils Reactive, Extraocular Movement Intact, Jaundice (Hermila Dao G. WIRE TRANSFER CLERK) Ears & Nose Ears & Nose Exam: Nasal Mucosa [place] (Hermila Dao G. WIRE TRANSFER CLERK) Throat Throat Exam: Oral Mucosa [place] & Moist (Hermila Dao G. WIRE TRANSFER CLERK) Neck Neck Exam: Neck Supple, Trachea Midline (Hermila Dao G. WIRE TRANSFER CLERK) Pulmonary Resp Exam: Breath Sounds Equal, No Distress Resp Remarks diffuse wheezes rales faint, improved (Hermila Dao G. WIRE TRANSFER CLERK) Cardiology CV Exam: Regular, Normal Sinus Rhythm (Hermila Dao G. WIRE TRANSFER CLERK) Gastrointestinal/Abdomen GI Exam: Distended, Bowel Sounds Hypoactive GI Remarks tender to RUQ and epigastric area (Hermila Dao G. WIRE TRANSFER CLERK) Musculoskeletal MS Exam: Joints Intact (Hermila Dao G. WIRE TRANSFER CLERK) Integumentary Skin Exam: Warm, Dry (Hermila Dao) Extremeties Extremities Exam: Pedal Pulses Palpable, Trace Edema (Hermila Dao) Neurologic Neuro Exam: Alert, Awake, Oriented, Speech Clear, Moving All Extremities, No Focal Deficits (Hermila Dao) Psychiatric Psych Exam: Appropriate Responses (Hermila Dao) VTE Prophylaxis VTE Prophylaxis Device: SCDs (Hermila Dao) PUD Prophylasis PUD Prophylaxis: Protonix (Hermila Dao) Assessment/Plan Problem List: (1) Acute pancreatitis (2) Leukocytosis (3) Elevated LFTs (4) Abdominal pain (5) Pneumonia (6) Hyperglycemia (7) Tachycardia (8) Wheezing (9) Hypertension (10) Cholelithiasis Assessment/Plan S/P ERCP with balloon and stone retrieval 02/20/[address] Sanchez evaluated, recommends to wait until pt. more stable before proceeding with cholecystectomy T bili improved, LFTs and lipase trending trending down. Abd. distended, abd xray shows ileus. Had enema yesterday, had small BM repeat abd. xray improved adv to clear liquid per GI, tolerating well Continue empiric abx Dilaudid for pain management PPI for GI prophylaxis SCDs for DVT prophylaxis BP improving, continue Lopressor and Vasotec PRN HR improved Noted with fever, wheezing/rales, tachypneic 1/ CXR notable for bilat infiltrates and effusions, poss. PNA, HCAP, component of aspiration Vanco added, pharmacy to dose will add Flagyl Dec. IVF to 50/hr OOB with assist PT eval IS q 2 WA Labs in am Continue with above tx D/W RN D/W pt D/W Dr. Yung This patient was seen by myself and Dr. Yung, this note is written on his behalf. (Hermila Dao) Assessment/Plan Patient seen and examined Labs and meds reviewed Discussed with RN Discussed with WIRE TRANSFER CLERK about plan of care Discussed with patient in presence of her son (Mike Yung MD) Problem Qualifiers (1) Acute pancreatitis: Qualified Code: K85.90 - Acute pancreatitis, unspecified complication status, unspecified pancreatitis type (2) Abdominal pain: Qualified Code: R10.11 - Right upper quadrant abdominal pain (3) Pneumonia: (4) Hypertension: Qualified Code: I10 - Essential hypertension (5) Cholelithiasis: Hermila Dao Feb 23, 2016 10:32 Mike Yung MD Feb 23, 2016 13:22
[2016-02-23] MEDS ORDERED: POTASSIUM CL 40 MEQ/30 ML LIQ UDC PO ONE (11:00)
[2016-02-23] MEDS: methylPREDNISolone SOD SUCC 125 MG/2 ML VIAL IV PUSH SCH ×2 (11:57→22:31)
[2016-02-23] MEDS: HEPARIN SODIUM - SQ 10,000 UNITS/ML VIAL SQ SCH ×2 (13:09→22:31)
--- NOTE | 2016-02-23 15:44 | HHI.GIFU ---
Subjective Remarks Resting in bed. States feeling better. Still having some discomfort with clear liquids, but states improved. + BM after enemas. Less distention. ( Cynthia Hilliard) Objective Vitals I&O Vital Signs Date Time Temp Pulse Resp B/P Pulse Ox O2 Delivery O2 Flow Rate FiO2 02/23/16 12:00 100.1 81 22 196/101 95 02/23/16 08:00 98.8 80 20 166/83 95 02/23/16 07:53 82 02/23/16 07:17 91 Nasal Cannula 3.00 02/23/16 03:00 98.3 86 24 165/87 91 02/23/16 00:00 98.4 90 18 175/87 94 02/22/16 20:00 87 02/22/16 20:00 100.8 92 18 185/88 94 02/22/16 19:36 95 Nasal Cannula 3.00 02/22/16 16:00 99.3 79 22 169/90 95 I/O 02/22/16 02/22/16 02/22/16 02/23/16 02/23/16 02/23/16 07:00 15:00 23:00 07:00 15:00 23:00 Intake Total 1498 ml 1330 ml 916 ml Output Total 500 ml 450 ml 300 ml Balance 998 ml 880 ml 616 ml Intake Oral 840 ml 120 ml IV Total 1498 ml 490 ml 796 ml Output Urine Total 500 ml 450 ml 300 ml # Bowel Movements 0 1 Laboratory Laboratory Tests Test 02/23/16 07:18 White Blood Count 13.6 Red Blood Count 4.12 Hemoglobin 12.3 Hematocrit 36.8 Mean Corpuscular Volume 89.5 Mean Corpuscular Hemoglobin 30.0 Mean Corpuscular Hemoglobin 33.5 Concent Red Cell Distribution Width 14.6 Platelet Count 209 Mean Platelet Volume 9.5 Neutrophils (%) (Auto) 78.2 Lymphocytes (%) (Auto) 7.7 Monocytes (%) (Auto) 12.9 Eosinophils (%) (Auto) 0.9 Basophils (%) (Auto) 0.3 Neutrophils # (Auto) 10.7 Lymphocytes # (Auto) 1.0 Monocytes # (Auto) 1.8 Eosinophils # (Auto) 0.1 Basophils # (Auto) 0.0 CBC Comment AUTO DIFF Differential Total Cells 100 Counted Neutrophils % (Manual) 84 Band Neutrophils % 5 Lymphocytes % 2 Monocytes % 8 Neutrophils # (Manual) 12.2 Myelocytes 1 Differential Comment FINAL DIFF MANUAL Platelet Estimate NORMAL Platelet Morphology Comment NORMAL Red Cell Morphology Comment NORMAL Sodium Level 138 Potassium Level 3.2 Chloride Level 97 Carbon Dioxide Level 34.1 Anion Gap 7 Blood Urea Nitrogen 12 Creatinine 0.83 Estimat Glomerular Filtration 96 Rate Random Glucose 125 Calcium Level 7.2 Protein Corrected Calcium 7.8 Total Bilirubin 1.7 Aspartate Amino Transf 33 (AST/SGOT) Alanine Aminotransferase 73 (ALT/SGPT) Alkaline Phosphatase 110 Total Protein 5.9 Albumin 1.9 Lipase 218 Imaging Last Impressions Abdomen X-Ray 02/23/16 0600 Signed Impressions: Service Date/Time: February 06:57 - CONCLUSION: Improving examination. Some small bowel air remains but definitely improved since the previous film Khoa Zhu MD Chest X-Ray 02/22/16 0000 Signed Impressions: Service Date/Time: Monday, February 22, 2016 10:34 - CONCLUSION: Bibasilar infiltrates and effusions. William Catalan MD GI Procedure 02/20/16 0000 Signed Impressions: Service Date/Time: Saturday, February 20, 2016 16:45 - CONCLUSION: ERCP as above. William Escobar MD Cholangiopancreatography MRI 02/20/16 0000 Signed Impressions: Service Date/Time: Saturday, February 20, 2016 14:46 - CONCLUSION: 1. Biliary distention. At least two 3-4 mm stones and small amount of debris floating around in the distal common bile duct. A few similar size stones are in the gallbladder neck. I don't see an acutely obstructing stone of the duct or gallbladder. 2. Pancreatitis associated peripancreatic edema not significantly changed from the CT. No pancreatic duct dilatation. William Escobar MD Abdomen/Pelvis CT 02/18/16 0000 Signed Impressions: Service Date/Time: Thursday, February 18, 2016 22:43 - CONCLUSION: There are some areas of lower density within the pancreas with significant peripancreatic fluid suspicious for pancreatitis. No drainable fluid collection or abscess is identified. The patient's common bile duct is dilated to 10 mm although no calcified stones are seen. The CBD is slightly more prominent than in December. Khoa Zhu MD Physical Exam HEENT: Normocephalic; atraumatic; no jaundice. CHEST: CTA CARDIAC: RRR. ABDOMEN: Abdomen distended but improved from yesterday, mild diffuse tenderness , improved from yesterday, no hepatosplenomegaly; bowel sounds are hypoactive. EXTREMITIES: No clubbing, cyanosis, or edema. SKIN: Normal; no rash; no jaundice. LINUX NETWORK ADMINISTRATOR: No focal deficits; alert and oriented times three. (Cynthia Hilliard [facility]) Assessment and Plan Plan ASSESSMENT: - Acute pancreatitis. Abdomen/Pelvis CT (02/18/16)-----> There are some areas of lower density within the pancreas with significant peripancreatic fluid suspicious for pancreatitis. No drainable fluid collection or abscess is identified. The patient's common bile duct is dilated to 10 mm although no calcified stones are seen. The CBD is slightly more prominent than in December. MRCP (02/20/16)-----> 1. Biliary distention. At least two 3-4 mm stones and small amount of debris floating around in the distal common bile duct. A few similar size stones are in the gallbladder neck. I don't see an acutely obstructing stone of the duct or gallbladder. 2. Pancreatitis associated peripancreatic edema not significantly changed from the CT. No pancreatic duct dilatation. S/P ERCP (02/19/16)----> The ampulla was located in the second portion of the duodenum, appeared impacted and bulging, dilation CBD, Dilation intrahepatic ducts, multiple filling defects seen in the CBD, sphincterotomy followed by balloon sweep and 3 stones removed successfully. LFTs Improving. Bili 1.7, AST 33, ALT 73, Alk Phosph 110, Lipase trending down 218. Pt's pancreatitis seems to be improving, but press tender incendiary grenade and bloated , seems to be more related to his ileus at this time. Clear liquids, IVF, PPI - Ileus. S/P SSE x 2- + BM. Reglan. Miralax. Abdomen X-Ray (02/23/16)----> Improving examination. Some small bowel air remains but definitely improved since the previous film . Clear liquids. - Cholelithiasis, Choledocholithiasis, cholangitis. S/P ERCP with stone extraction as above. Will need cholecystectomy once cholangitis/pancreatitis resolves. Zosyn - Elevated LFTs. S/P ERCP as above. Improving as above. - GERD. PPI - Leukocytosis. Improving. WBC 13.6. Zosyn Flagyl. Vanco Plan - Full liquids - Reglan 10mg IV q8h - Miralax 17gram po daily - IVF - PPI - Cont. Abx per primary - Consult GS for laparoscopic cholecystectomy once pancreatitis/cholangitis resolves. - Supportive care - Pt seen and examined by Dr. May and myself and this note is written on his behalf (Cynthia Hilliard) Physician Comments Patient was seen and examined, agree with above note and plan, pal choly when surgery feels patient is stable enough (Hossein May MD) Cynthia Hilliard Feb 23, 2016 15:44 Hossein May MD Feb 23, 2016 20:37
[2016-02-23] MEDS: PANTOPRAZOLE SODIUM 40 MG VIAL IV PUSH SCH (18:38)
[2016-02-23] MEDS: DEXT 5%-NACL 0.45% 1000 ML INJ 1,000 ML IV SCH (22:39)
[2016-02-24] VITALS (8 sets, daily range): BP systolic 162–206; BP diastolic 74–96; PULSE 59–88; RESP 18–28; TEMP 97.2–98.8; O2SAT 91–93
[2016-02-24] MEDS: ENALAPRILAT 1.25 MG/ML VIAL IV PUSH PRN ×2 (04:46→20:50)
[2016-02-24] MEDS: HYDROmorphone HCL PF 1 MG/ML VIAL IV PUSH PRN ×4 (04:47→20:38)
[2016-02-24] MEDS: metroNIDAZOLE 500 MG INJ 100 ML IV SCH ×2 (06:08→14:34)
[2016-02-24] MEDS: PIPERACIL-TAZO 3.375 GM PREMIX 50 ML IV SCH ×4 (06:08→17:32)
[2016-02-24] MEDS: METOCLOPRAMIDE HCL 10 MG/2 ML VIAL IV PUSH SCH ×3 (06:09→20:38)
[2016-02-24 07:04] LABS: BICARBONATE 31.7 MEQ/L (21.0-32.0); HEMATOCRIT 38.9 % (39.0-51.0); MEAN CELL VOLUME 90.3 FL (80.0-100.0); MEAN CORPUSCULAR HEMOGLOBIN 30.9 PG (27.0-34.0); MEAN CORPUSCULAR HGB CONC 34.2 % (32.0-36.0); PLATELET COUNT 264 TH/MM3 (150-450); POTASSIUM 3.4 MEQ/L (3.5-5.1); RED CELL DISTRIBUTION WIDTH 14.5 % (11.6-17.2); REVIEW FLAG FINAL; WHITE BLOOD COUNT 13.9 TH/MM3 (4.0-11.0)
[2016-02-24] MEDS: RESP: ALBUTEROL 2.5 MG/IPRATROPIUM 0.5 MG NEB (SCH) NEB ×5 (07:35→23:50)
[2016-02-24] MEDS ORDERED: POTASSIUM CL 40 MEQ/30 ML LIQ UDC PO ONE (08:45)
[2016-02-24] MEDS ORDERED: PHARMACY ORDERED LAB XX ONE (09:45)
--- NOTE | 2016-02-24 10:08 | HHI.PR ---
Subjective Subjective Remarks C/O abd pain less distended had BM was more soft no fever last night some cough, less wheezing some nausea after liquids no cp Review of Systems Constitutional Constitutional Remarks 12 point ROS completed, limited, Vitals/Results Intake & Output 02/23/16 02/23/16 02/24/16 15:00 23:00 07:00 Intake Total 960 ml 1334 ml 964 ml Balance 960 ml 1334 ml 964 ml Intake Oral 960 ml 480 ml 240 ml IV Total 854 ml 724 ml # Voids 2 1 1 # Bowel Movements 1 0 1 Vital Signs Vital Signs Date Time Temp Pulse Resp B/P Pulse Ox O2 Delivery O2 Flow Rate FiO2 02/24/16 08:00 98.1 72 20 183/92 92 02/24/16 07:35 Nasal Cannula 3.00 02/24/16 05:15 162/81 02/24/16 04:00 Nasal Cannula 3.00 02/24/16 04:00 97.2 59 18 206/96 93 02/24/16 00:00 Nasal Cannula 3.00 02/24/16 00:00 98.4 75 18 165/85 92 02/23/16 20:26 92 Nasal Cannula 3.00 02/23/16 20:00 98.2 75 18 182/92 98 02/23/16 20:00 Nasal Cannula 3.00 02/23/16 20:00 77 02/23/16 16:00 98.6 81 20 197/98 94 02/23/16 12:00 100.1 81 22 196/101 95 CBC/BMP: 02/24/16 0508 02/24/16 0508 Lab Results Laboratory Tests Test 02/24/16 05:08 White Blood Count 13.9 TH/MM3 Red Blood Count 4.30 MIL/MM3 Hemoglobin 13.3 GM/DL Hematocrit 38.9 % Mean Corpuscular Volume 90.3 FL Mean Corpuscular Hemoglobin 30.9 PG Mean Corpuscular Hemoglobin 34.2 % Concent Red Cell Distribution Width 14.5 % Platelet Count 264 TH/MM3 Mean Platelet Volume 9.7 FL Sodium Level 139 MEQ/L Potassium Level 3.4 MEQ/L Chloride Level 98 MEQ/L Carbon Dioxide Level 31.7 MEQ/L Anion Gap 9 MEQ/L Blood Urea Nitrogen 13 MG/DL Creatinine 0.71 MG/DL Estimat Glomerular Filtration 115 ML/MIN Rate Random Glucose 169 MG/DL Calcium Level 7.8 MG/DL Physical Exam General General Appearance: Well Developed, Well Nourished Appearance Remarks tachypneic Eyes Eye Exam: Pupils Equal, Pupils Reactive, Extraocular Movement Intact, Jaundice Ears & Nose Ears & Nose Exam: Nasal Mucosa [place] Throat Throat Exam: Oral Mucosa [place] & Moist Neck Neck Exam: Neck Supple, Trachea Midline Pulmonary Resp Exam: Breath Sounds Equal, No Distress Resp Remarks diminished Cardiology CV Exam: Regular, Normal Sinus Rhythm Gastrointestinal/Abdomen GI Exam: Soft, Distended, Bowel Sounds Hypoactive GI Remarks tender to RUQ and epigastric area Musculoskeletal MS Exam: Joints Intact Integumentary Skin Exam: Warm, Dry Extremeties Extremities Exam: Pedal Pulses Palpable, Trace Edema Neurologic Neuro Exam: Alert, Awake, Oriented, Speech Clear, Moving All Extremities, No Focal Deficits Psychiatric Psych Exam: Appropriate Responses VTE Prophylaxis VTE Prophylaxis Device: SCDs PUD Prophylasis PUD Prophylaxis: Protonix Assessment/Plan Problem List: (1) Acute pancreatitis (2) Leukocytosis (3) Elevated LFTs (4) Abdominal pain (5) Pneumonia (6) Hyperglycemia (7) Tachycardia (8) Wheezing (9) Hypertension (10) Cholelithiasis Assessment/Plan S/P ERCP with balloon and stone retrieval 02/20/[address] Sanchez evaluated, recommends to wait until pt. more stable before proceeding with cholecystectomy T bili improved, LFTs and lipase trending trending down. Abd. distended, abd xray shows ileus. Having BMs repeat abd. xray today Continue clear liquid diet Continue empiric abx Dilaudid for pain management PPI for GI prophylaxis SCDs for DVT prophylaxis BP elevated overnight, continue Lopressor inc. to 50 mg PO BID, will add Norvasc 5 mg po daily. Continue Vasotec PRN HR improved Fevers improving, less cough, wheezing continue empiric antibiotics Duonebs Wean down Solumedrol to 40 mg IV daily Continue IVF at 50/hr OOB PT IS q 2 WA Replace K Labs in am D/W RN D/W pt D/W Dr. Yung This patient was seen by myself and Dr. Yung, this note is written on his behalf. Problem Qualifiers (1) Acute pancreatitis: Qualified Code: K85.90 - Acute pancreatitis, unspecified complication status, unspecified pancreatitis type (2) Abdominal pain: Qualified Code: R10.11 - Right upper quadrant abdominal pain (3) Pneumonia: (4) Hypertension: Qualified Code: I10 - Essential hypertension (5) Cholelithiasis: Hermila Dao Feb 24, 2016 10:08
[2016-02-24] MEDS: POLYETHYLENE GLYCOL 17 GM PKG PO SCH (10:13)
[2016-02-24] MEDS: SODIUM CHLORIDE 0.9% FLUSH 5 ML FLUSH FLUSH SCH ×2 (10:14→20:38)
[2016-02-24] MEDS: METOPROLOL TARTRATE 25 MG TAB PO SCH ×2 (10:14→20:37)
[2016-02-24] MEDS: VANCOMYCIN INJ 1,250 MG in SODIUM CHLOR 0.9% 250 ML INJ 250 ML IV SCH (10:15)
[2016-02-24] MEDS: HEPARIN SODIUM - SQ 10,000 UNITS/ML VIAL SQ SCH ×2 (10:15→20:37)
--- NOTE | 2016-02-24 11:17 | RADRPT ---
EXAM DATE/TIME: 02/24/2016 10:55 [place] COMPARISON: ABDOMEN KUB ONLY, February 23, 2016, 6:57. INDICATIONS : Abdominal distention, evaluate ileus MEDICAL HISTORY : Hypertension. Gastroesophageal reflux disease. SURGICAL HISTORY : None. ENCOUNTER: Subsequent ACUITY: 4 - 6 days PAIN SCORE: Non-responsive. LOCATION: Bilateral abdomen FINDINGS: There is persistent mild gaseous distention of bowel loops of the abdomen and pelvis, minimally [place] ed from yesterday's exam. No suspicious calcific indices. Nothing to suggest mass or visceromegaly. S [place] is stable and intact. CONCLUSION: Persistent mild gaseous distention of bowel loops. William Catalan MD on February 24, 2016 at 11:15 Board Certified Radiologist. This report was verified electronically.
--- NOTE | 2016-02-24 11:49 | HHI.GIFU ---
Subjective Remarks Resting in bed. Feeling much better. No nausea, vomiting. Only small amount of abdominal discomfort. + BM. Less distention. (Cynthia Hilliard) Objective Vitals I&O Vital Signs Date Time Temp Pulse Resp B/P Pulse Ox O2 Delivery O2 Flow Rate FiO2 02/24/16 08:00 98.1 72 20 183/92 92 02/24/16 07:35 Nasal Cannula 3.00 02/24/16 05:15 162/81 02/24/16 04:00 Nasal Cannula 3.00 02/24/16 04:00 97.2 59 18 206/96 93 02/24/16 00:00 Nasal Cannula 3.00 02/24/16 00:00 98.4 75 18 165/85 92 02/23/16 20:26 92 Nasal Cannula 3.00 02/23/16 20:00 98.2 75 18 182/92 98 02/23/16 20:00 Nasal Cannula 3.00 02/23/16 20:00 77 02/23/16 16:00 98.6 81 20 197/98 94 02/23/16 12:00 100.1 81 22 196/101 95 I/O 02/23/16 02/23/16 02/23/16 02/24/16 02/24/16 02/24/16 07:00 15:00 23:00 07:00 15:00 23:00 Intake Total 916 ml 960 ml 1334 ml 964 ml Output Total 300 ml Balance 616 ml 960 ml 1334 ml 964 ml Intake Oral 120 ml 960 ml 480 ml 240 ml IV Total 796 ml 854 ml 724 ml Output Urine Total 300 ml # Voids 2 1 1 # Bowel Movements 1 0 1 Laboratory Laboratory Tests Test 02/24/16 02/24/16 05:08 10:32 White Blood Count 13.9 Red Blood Count 4.30 Hemoglobin 13.3 Hematocrit 38.9 Mean Corpuscular Volume 90.3 Mean Corpuscular Hemoglobin 30.9 Mean Corpuscular Hemoglobin 34.2 Concent Red Cell Distribution Width 14.5 Platelet Count 264 Mean Platelet Volume 9.7 Sodium Level 139 Potassium Level 3.4 Chloride Level 98 Carbon Dioxide Level 31.7 Anion Gap 9 Blood Urea Nitrogen 13 Creatinine 0.71 Estimat Glomerular Filtration 115 Rate Random Glucose 169 Calcium Level 7.8 Vancomycin Level Trough 11.0 Imaging Last Impressions Abdomen X-Ray 02/24/16 0000 Signed Impressions: Service Date/Time: Wednesday, February 24, 2016 10:55 - CONCLUSION: Persistent mild gaseous distention of bowel loops. William Catalan MD Chest X-Ray 02/22/16 0000 Signed Impressions: Service Date/Time: Monday, February 22, 2016 10:34 - CONCLUSION: Bibasilar infiltrates and effusions. William Catalan MD GI Procedure 02/20/16 0000 Signed Impressions: Service Date/Time: Saturday, February 20, 2016 16:45 - CONCLUSION: ERCP as above. William Escobar MD Cholangiopancreatography MRI 02/20/16 0000 Signed Impressions: Service Date/Time: Saturday, February 20, 2016 14:46 - CONCLUSION: 1. Biliary distention. At least two 3-4 mm stones and small amount of debris floating around in the distal common bile duct. A few similar size stones are in the gallbladder neck. I don't see an acutely obstructing stone of the duct or gallbladder. 2. Pancreatitis associated peripancreatic edema not significantly changed from the CT. No pancreatic duct dilatation. William Escobar MD Abdomen/Pelvis CT 02/18/16 0000 Signed Impressions: Service Date/Time: Thursday, February 18, 2016 22:43 - CONCLUSION: There are some areas of lower density within the pancreas with significant peripancreatic fluid suspicious for pancreatitis. No drainable fluid collection or abscess is identified. The patient's common bile duct is dilated to 10 mm although no calcified stones are seen. The CBD is slightly more prominent than in December. Khoa Zhu MD Physical Exam HEENT: Normocephalic; atraumatic; no jaundice. CHEST: Expiratory wheezing CARDIAC: RRR. ABDOMEN: Abdomen mildly distended, mild tenderness, , no hepatosplenomegaly; bowel sounds are hypoactive. EXTREMITIES: No clubbing, cyanosis, or edema. SKIN: Normal; no rash; no jaundice. PULLEY MAINTAINER: No focal deficits; alert and oriented times three. (Cynthia Hilliard) Assessment and Plan Plan ASSESSMENT: - Acute pancreatitis. Abdomen/Pelvis CT (02/18/16)-----> There are some areas of lower density within the pancreas with significant peripancreatic fluid suspicious for pancreatitis. No drainable fluid collection or abscess is identified. The patient's common bile duct is dilated to 10 mm although no calcified stones are seen. The CBD is slightly more prominent than in December. MRCP (02/20/16)-----> 1. Biliary distention. At least two 3-4 mm stones and small amount of debris floating around in the distal common bile duct. A few similar size stones are in the gallbladder neck. I don't see an acutely obstructing stone of the duct or gallbladder. 2. Pancreatitis associated peripancreatic edema not significantly changed from the CT. No pancreatic duct dilatation. S/P ERCP (02/19/16)----> The ampulla was located in the second portion of the duodenum, appeared impacted and bulging, dilation CBD, Dilation intrahepatic ducts, multiple filling defects seen in the CBD, sphincterotomy followed by balloon sweep and 3 stones removed successfully. Resolving. Will start on low fat diet. - Ileus. S/P SSE x 2- + BM. Reglan. Miralax. Abdomen X-Ray (02/23/16)----> Improving examination. Some small bowel air remains but definitely improved since the previous film. RESOLVING. No n/v. Much improvement in distention. Only minimal discomfort. +BM. - Cholelithiasis, Choledocholithiasis, cholangitis. S/P ERCP with stone extraction as above. Will need cholecystectomy once cholangitis/pancreatitis resolves. Zosyn - Elevated LFTs. S/P ERCP as above. Improving as above. - GERD. PPI - Leukocytosis. Improving. WBC 13.9. Zosyn Flagyl. Vanco Plan - Low fat diet - D/C Reglan - Cont. Miralax - Cont. PPI - Cont. Abx per primary - Consult GS for laparoscopic cholecystectomy once pancreatitis/cholangitis resolves. - Encourage ambulation, oob to chair - Supportive care - Pt seen and examined by Dr. May and myself and this note is written on his behalf (Cynthia Hilliard) Physician Comments Patient was seen and examined, agree with above note and plan (Hossein May MD ) Cynthia Hilliard Feb 24, 2016 11:49 Hossein May MD Feb 25, 2016 07:32
[2016-02-24] MEDS: amLODIPine BESYLATE 5 MG TAB PO SCH ×2 (12:14→12:15)
[2016-02-24] MEDS: DEXT 5%-NACL 0.45% 1000 ML INJ 1,000 ML IV SCH (17:31)
[2016-02-24] MEDS: PANTOPRAZOLE SODIUM 40 MG VIAL IV PUSH SCH (17:45)
[2016-02-24] MEDS: VANCOMYCIN INJ 1,500 MG in SODIUM CHLORID 0.9% 500 ML INJ 500 ML IV SCH (20:39)
[2016-02-25] VITALS (10 sets, daily range): BP systolic 132–181; BP diastolic 62–93; PULSE 61–82; RESP 18–24; TEMP 97–98.6; O2SAT 92–95
[2016-02-25] MEDS: metroNIDAZOLE 500 MG INJ 100 ML IV SCH ×4 (00:17→20:42)
[2016-02-25] MEDS: HYDROmorphone HCL PF 1 MG/ML VIAL IV PUSH PRN ×8 (00:19→23:56)
[2016-02-25] MEDS: PIPERACIL-TAZO 3.375 GM PREMIX 50 ML IV SCH ×4 (00:20→17:28)
[2016-02-25] MEDS: ENALAPRILAT 1.25 MG/ML VIAL IV PUSH PRN ×2 (04:16→20:52)
[2016-02-25] MEDS: METOCLOPRAMIDE HCL 10 MG/2 ML VIAL IV PUSH SCH ×3 (05:38→20:37)
[2016-02-25] MEDS: RESP: ALBUTEROL 2.5 MG/IPRATROPIUM 0.5 MG NEB (SCH) NEB ×4 (08:40→20:19)
[2016-02-25 08:53] LABS: ALKALINE PHOSPHATASE 125 U/L (45-117); ALT (GPT) 78 U/L (12-78); ANION GAP 8 MEQ/L (5-15); AST (GOT) 55 U/L (15-37); BICARBONATE 30.7 MEQ/L (21.0-32.0); BLOOD UREA NITROGEN 15 MG/DL (7-18); CHLORIDE 101 MEQ/L (98-107); GLOMERULAR FILTRATION RATE 100 ML/MIN (>89); POTASSIUM 3.4 MEQ/L (3.5-5.1); SODIUM (NA) 140 MEQ/L (136-145); TOTAL BILIRUBIN ADULT 0.9 MG/DL (0.2-1.0)
[2016-02-25] MEDS: VANCOMYCIN INJ 1,500 MG in SODIUM CHLORID 0.9% 500 ML INJ 500 ML IV SCH ×2 (09:10→20:28)
[2016-02-25] MEDS: methylPREDNISolone SOD SUCC 40 MG/1 ML VIAL IV SCH (09:14)
[2016-02-25] MEDS: POLYETHYLENE GLYCOL 17 GM PKG PO SCH (09:17)
[2016-02-25] MEDS: SODIUM CHLORIDE 0.9% FLUSH 5 ML FLUSH FLUSH SCH ×2 (09:17→20:28)
[2016-02-25] MEDS: METOPROLOL TARTRATE 25 MG TAB PO SCH ×2 (09:18→20:37)
[2016-02-25] MEDS: HEPARIN SODIUM - SQ 10,000 UNITS/ML VIAL SQ SCH ×2 (09:18→20:37)
[2016-02-25] MEDS: DEXT 5%-NACL 0.45% 1000 ML INJ 1,000 ML IV SCH (12:27)
--- NOTE | 2016-02-25 13:11 | HHI.PR ---
Subjective Interval History C/O abd pain less than before less distended had BM was more soft no fever last night some cough, less wheezing some nausea after liquids no cp Vitals/Results Intake & Output 02/24/16 02/24/16 02/25/16 15:00 23:00 07:00 Intake Total 720 ml 720 ml 120 ml Output Total 700 ml Balance 720 ml 20 ml 120 ml Intake Oral 720 ml 720 ml 120 ml Output Urine Total 700 ml # Voids 2 # Bowel Movements 2 Vital Signs Vital Signs Date Time Temp Pulse Resp B/P Pulse Ox O2 Delivery O2 Flow Rate FiO2 02/25/16 12:26 18 02/25/16 12:00 97.0 70 18 174/90 94 02/25/16 08:41 94 Nasal Cannula 5.00 02/25/16 08:00 97.0 64 20 138/76 93 02/25/16 04:00 97.9 61 20 132/62 93 02/25/16 00:08 97.9 69 24 181/85 92 02/24/16 20:50 97.9 80 28 181/85 91 02/24/16 20:02 93 Nasal Cannula 3.00 02/24/16 20:00 77 02/24/16 19:30 Nasal Cannula 3.00 02/24/16 16:00 98.0 71 20 166/74 92 CBC/BMP: 02/24/16 0508 02/25/16 0715 Lab Results Laboratory Tests Test 02/25/16 07:15 Sodium Level 140 MEQ/L Potassium Level 3.4 MEQ/L Chloride Level 101 MEQ/L Carbon Dioxide Level 30.7 MEQ/L Anion Gap 8 MEQ/L Blood Urea Nitrogen 15 MG/DL Creatinine 0.80 MG/DL Estimat Glomerular Filtration 100 ML/MIN Rate Random Glucose 123 MG/DL Calcium Level 7.5 MG/DL Total Bilirubin 0.9 MG/DL Aspartate Amino Transf 55 U/L (AST/SGOT) Alanine Aminotransferase 78 U/L (ALT/SGPT) Alkaline Phosphatase 125 U/L Total Protein 5.8 GM/DL Albumin 2.1 GM/DL Physical Exam General General Appearance: Well Developed, Well Nourished Eyes Eye Exam: Pupils Equal, Pupils Reactive, Extraocular Movement Intact, Jaundice Ears & Nose Ears & Nose Exam: Nasal Mucosa Babbie Throat Throat Exam: Oral Mucosa Babbie & Moist Neck Neck Exam: Neck Supple, Trachea Midline Pulmonary Resp Exam: Breath Sounds Equal, No Distress Cardiology CV Exam: Regular, Normal Sinus Rhythm Gastrointestinal/Abdomen GI Exam: Soft, Distended, Bowel Sounds Hypoactive GI Remarks Less distended than yesterday Musculoskeletal MS Exam: Joints Intact Integumentary Skin Exam: Warm, Dry Extremeties Extremities Exam: Pedal Pulses Palpable, Trace Edema Neurologic Neuro Exam: Alert, Awake, Oriented, Speech Clear, Moving All Extremities, No Focal Deficits Psychiatric Psych Exam: Appropriate Responses VTE Prophylaxis VTE Prophylaxis Device: SCDs PUD Prophylasis PUD Prophylaxis: Protonix Assessment/Plan Problem List: (1) Acute pancreatitis (2) Leukocytosis (3) Elevated LFTs (4) Abdominal pain (5) Pneumonia (6) Hyperglycemia (7) Tachycardia (8) Wheezing (9) Hypertension (10) Cholelithiasis Assessment/Plan S/P ERCP with balloon and stone retrieval 02/20/[address] Sanchez evaluated, recommends to wait until pt. more stable before proceeding with cholecystectomy T bili improved, LFTs and lipase trending trending down. Abd. distended, abd xray shows ileus. Having BMs repeat abd. xray February 23 shows persistent mild gaseous distention of bowel loops Continue clear liquid diet Continue empiric abx Dilaudid for pain management PPI for GI prophylaxis SCDs for DVT prophylaxis BP stable Continue Vasotec PRN HR improved No more fever more than 48 hours less cough, wheezing continue empiric antibiotics Duonebs Wean down Solumedrol to 40 mg IV daily Continue IVF at 50/hr OOB PT IS q 2 WA Replace K Labs in am D/W RN D/W pt Problem Qualifiers (1) Acute pancreatitis: Qualified Code: K85.90 - Acute pancreatitis, unspecified complication status, unspecified pancreatitis type (2) Abdominal pain: Qualified Code: R10.11 - Right upper quadrant abdominal pain (3) Pneumonia: (4) Hypertension: Qualified Code: I10 - Essential hypertension (5) Cholelithiasis: Mike Yung MD Feb 25, 2016 13:11
--- NOTE | 2016-02-25 14:50 | HHI.GIFU ---
Subjective Remarks Resting in bed. Tolerating diet. Does have some LUQ discomfort after eating, but much improved. States he is getting out of bed and having bowel movements. (Cynthia Hilliard) Objective Vitals I&O Vital Signs Date Time Temp Pulse Resp B/P Pulse Ox O2 Delivery O2 Flow Rate FiO2 02/25/16 12:26 18 02/25/16 12:00 97.0 70 18 174/90 94 02/25/16 08:41 94 Nasal Cannula 5.00 02/25/16 08:00 97.0 64 20 138/76 93 02/25/16 07:15 94 Nasal Cannula 3.00 02/25/16 04:00 97.9 61 20 132/62 93 02/25/16 00:08 97.9 69 24 181/85 92 02/24/16 20:50 97.9 80 28 181/85 91 02/24/16 20:02 93 Nasal Cannula 3.00 02/24/16 20:00 77 02/24/16 19:30 Nasal Cannula 3.00 02/24/16 16:00 98.0 71 20 166/74 92 I/O 02/24/16 02/24/16 02/24/16 02/25/16 02/25/16 02/25/16 07:00 15:00 23:00 07:00 15:00 23:00 Intake Total 964 ml 720 ml 720 ml 120 ml 2510 ml Output Total 700 ml Balance 964 ml 720 ml 20 ml 120 ml 2510 ml Intake Oral 240 ml 720 ml 720 ml 120 ml IV Total 724 ml 2510 ml Output Urine Total 700 ml # Voids 1 2 # Bowel Movements 1 2 Laboratory Laboratory Tests Test 02/25/16 07:15 Sodium Level 140 Potassium Level 3.4 Chloride Level 101 Carbon Dioxide Level 30.7 Anion Gap 8 Blood Urea Nitrogen 15 Creatinine 0.80 Estimat Glomerular Filtration 100 Rate Random Glucose 123 Calcium Level 7.5 Total Bilirubin 0.9 Aspartate Amino Transf 55 (AST/SGOT) Alanine Aminotransferase 78 (ALT/SGPT) Alkaline Phosphatase 125 Total Protein 5.8 Albumin 2.1 Imaging Last Impressions Abdomen X-Ray 02/24/16 0000 Signed Impressions: Service Date/Time: Wednesday, February 24, 2016 10:55 - CONCLUSION: Persistent mild gaseous distention of bowel loops. William Catalan MD Chest X-Ray 02/22/16 0000 Signed Impressions: Service Date/Time: Monday, February 22, 2016 10:34 - CONCLUSION: Bibasilar infiltrates and effusions. William Catalan MD GI Procedure 02/20/16 0000 Signed Impressions: Service Date/Time: Saturday, February 20, 2016 16:45 - CONCLUSION: ERCP as above. William Escobar MD Cholangiopancreatography MRI 02/20/16 0000 Signed Impressions: Service Date/Time: Saturday, February 20, 2016 14:46 - CONCLUSION: 1. Biliary distention. At least two 3-4 mm stones and small amount of debris floating around in the distal common bile duct. A few similar size stones are in the gallbladder neck. I don't see an acutely obstructing stone of the duct or gallbladder. 2. Pancreatitis associated peripancreatic edema not significantly changed from the CT. No pancreatic duct dilatation. William Escobar MD Abdomen/Pelvis CT 02/18/16 0000 Signed Impressions: Service Date/Time: Thursday, February 18, 2016 22:43 - CONCLUSION: There are some areas of lower density within the pancreas with significant peripancreatic fluid suspicious for pancreatitis. No drainable fluid collection or abscess is identified. The patient's common bile duct is dilated to 10 mm although no calcified stones are seen. The CBD is slightly more prominent than in December. Khoa Zhu MD Physical Exam HEENT: Normocephalic; atraumatic; no jaundice. CHEST: Expiratory wheezing CARDIAC: RRR. ABDOMEN: Abdomen mildly distended, mild tenderness, no hepatosplenomegaly; bowel sounds are hypoactive. EXTREMITIES: No clubbing, cyanosis, or edema. SKIN: Normal; no rash; no jaundice. INDUSTRY CONSULTANT: No focal deficits; alert and oriented times three. (Cynthia Hilliard [facility]) Assessment and Plan Plan ASSESSMENT: - Acute pancreatitis. Abdomen/Pelvis CT (02/18/16)-----> There are some areas of lower density within the pancreas with significant peripancreatic fluid suspicious for pancreatitis. No drainable fluid collection or abscess is identified. The patient's common bile duct is dilated to 10 mm although no calcified stones are seen. The CBD is slightly more prominent than in December. MRCP (02/20/16)-----> 1. Biliary distention. At least two 3-4 mm stones and small amount of debris floating around in the distal common bile duct. A few similar size stones are in the gallbladder neck. I don't see an acutely obstructing stone of the duct or gallbladder. 2. Pancreatitis associated peripancreatic edema not significantly changed from the CT. No pancreatic duct dilatation. S/P ERCP (02/19/16)----> The ampulla was located in the second portion of the duodenum, appeared impacted and bulging, dilation CBD, Dilation intrahepatic ducts, multiple filling defects seen in the CBD, sphincterotomy followed by balloon sweep and 3 stones removed successfully. Resolving. Low fat diet. - Ileus. S/P SSE x 2- + BM. Reglan. Miralax. Abdomen X-Ray (02/23/16)----> Improving examination. Some small bowel air remains but definitely improved since the previous film. RESOLVING. No n/v. Mildly distended. Only minimal discomfort. +BM. - Cholelithiasis, Choledocholithiasis, cholangitis. S/P ERCP with stone extraction as above. Will need cholecystectomy once cholangitis/pancreatitis resolves. Zosyn - Elevated LFTs. S/P ERCP as above. Improving as above. - GERD. PPI - Leukocytosis. Improving. WBC 13.9. Zosyn Flagyl. Vanco - Wheezing. Per primary Plan - Low fat diet - Cont. Miralax - Cont. PPI - Cont. Abx per primary - Encourage ambulation, oob to chair - GI will sign off, please reconsult as needed - Pt seen and examined by Dr. May and myself and this note is written on his behalf (Cynthia Hilliard) Physician Comments atient was seen and examined, agree with above note, much better, tolerating food, continue supportive care, we will F/U as needed. (Hossein May MD) Cynthia Hilliard Feb 25, 2016 14:50 Hossein May MD Feb 25, 2016 15:05
[2016-02-25] MEDS: PANTOPRAZOLE SODIUM 40 MG VIAL IV PUSH SCH (17:28)
[2016-02-26] VITALS (8 sets, daily range): BP systolic 163–214; BP diastolic 82–102; PULSE 70–95; RESP 18–22; TEMP 97.8–99.9; O2SAT 93–97
[2016-02-26] MEDS: HYDROmorphone HCL PF 1 MG/ML VIAL IV PUSH PRN ×5 (03:45→22:19)
[2016-02-26] MEDS: ENALAPRILAT 1.25 MG/ML VIAL IV PUSH PRN ×3 (03:46→22:03)
[2016-02-26] MEDS: PIPERACIL-TAZO 3.375 GM PREMIX 50 ML IV SCH ×4 (05:30→17:38)
[2016-02-26] MEDS: METOCLOPRAMIDE HCL 10 MG/2 ML VIAL IV PUSH SCH ×3 (05:32→21:58)
[2016-02-26] MEDS: metroNIDAZOLE 500 MG INJ 100 ML IV SCH ×3 (05:32→22:00)
[2016-02-26] MEDS: DEXT 5%-NACL 0.45% 1000 ML INJ 1,000 ML IV SCH (06:35)
[2016-02-26] MEDS: RESP: ALBUTEROL 2.5 MG/IPRATROPIUM 0.5 MG NEB (SCH) NEB (08:14)
[2016-02-26] MEDS ORDERED: PHARMACY ORDERED LAB XX ONE (08:45)
[2016-02-26 08:51] LABS: AUTOMATED NEUTROPHIL # 10.9 TH/MM3 (1.8-7.7); EOSINOPHIL % 0.3 % (0.0-4.0); LYMPH % 11.3 % (9.0-44.0); LYMPHOCYTE # 1.5 TH/MM3 (1.0-4.8); MEAN CELL VOLUME 89.8 FL (80.0-100.0); MEAN CORPUSCULAR HEMOGLOBIN 29.8 PG (27.0-34.0); MEAN CORPUSCULAR HGB CONC 33.2 % (32.0-36.0); MONO % 8.9 % (0.0-8.0); NEUT % 79.5 % (16.0-70.0); PLATELET COUNT 379 TH/MM3 (150-450); RED BLOOD COUNT 4.57 MIL/MM3 (4.50-5.90); RED CELL DISTRIBUTION WIDTH 14.5 % (11.6-17.2); WHITE BLOOD COUNT 13.7 TH/MM3 (4.0-11.0)
[2016-02-26] MEDS: SODIUM CHLORIDE 0.9% FLUSH 5 ML FLUSH FLUSH SCH ×2 (09:00→21:59)
[2016-02-26 09:19] LABS: HEMO FLAGS AUTO DIFF
[2016-02-26 09:22] LABS: ALKALINE PHOSPHATASE 156 U/L (45-117); ALT (GPT) 93 U/L (12-78); ANION GAP 9 MEQ/L (5-15); AST (GOT) 74 U/L (15-37); BICARBONATE 32.5 MEQ/L (21.0-32.0); BLOOD UREA NITROGEN 16 MG/DL (7-18); CHLORIDE 98 MEQ/L (98-107); GLOMERULAR FILTRATION RATE 91 ML/MIN (>89); POTASSIUM 3.3 MEQ/L (3.5-5.1); SODIUM (NA) 139 MEQ/L (136-145); TOTAL BILIRUBIN ADULT 1.1 MG/DL (0.2-1.0)
[2016-02-26] MEDS: amLODIPine BESYLATE 5 MG TAB PO SCH (09:38)
[2016-02-26] MEDS: POLYETHYLENE GLYCOL 17 GM PKG PO SCH (09:38)
[2016-02-26] MEDS: HEPARIN SODIUM - SQ 10,000 UNITS/ML VIAL SQ SCH ×2 (09:38→21:58)
[2016-02-26] MEDS: methylPREDNISolone SOD SUCC 40 MG/1 ML VIAL IV SCH (09:38)
[2016-02-26] MEDS: METOPROLOL TARTRATE 25 MG TAB PO SCH ×2 (09:38→21:58)
[2016-02-26 10:59] LABS: BANDS 8 % (0-6); METAMYELOCYTES 1 % (0-1); MYELOCYTES 3 % (0-0); NEUTROPHIL # MANUAL DIFF 11.9 TH/MM3 (1.8-7.7); PLATELET ESTIMATE SMEAR NORMAL (NORMAL); PLATELET MORPHOLOGY ENLARGED (NORMAL); POLYS (SEG NEUTROPHILS) 75 % (16-70); SCAN/DIFF FINAL DIFF MANUAL; WBC DIFF SAMPLE 100
[2016-02-26] MEDS: VANCOMYCIN INJ 1,500 MG in SODIUM CHLORID 0.9% 500 ML INJ 500 ML IV SCH ×2 (11:55→21:58)
--- NOTE | 2016-02-26 17:08 | HHI.PR ---
Subjective Interval History C/O less abd pain less distended had BM was more soft no fever last night some cough, less wheezing some nausea after liquids no cp Vitals/Results Intake & Output 02/25/16 02/25/16 02/26/16 15:00 23:00 07:00 Intake Total 3230 ml 240 ml 220 ml Output Total 800 ml Balance 2430 ml 240 ml 220 ml Intake Oral 720 ml 240 ml 220 ml IV Total 2510 ml Output Urine Total 800 ml # Voids 2 2 # Bowel Movements 0 0 0 Vital Signs Vital Signs Date Time Temp Pulse Resp B/P Pulse Ox O2 Delivery O2 Flow Rate FiO2 02/26/16 16:00 97.9 70 20 163/82 94 02/26/16 12:00 99.3 82 20 214/102 95 202/96 02/26/16 08:14 93 Nasal Cannula 5.00 02/26/16 08:00 95 02/26/16 08:00 Nasal Cannula 3.00 02/26/16 08:00 99.9 94 18 197/99 93 02/26/16 04:00 99.7 82 22 188/96 96 02/26/16 00:00 97.8 72 20 179/86 95 02/25/16 20:20 95 Nasal Cannula 5.00 02/25/16 20:08 77 02/25/16 20:00 98.6 82 22 177/93 94 02/25/16 19:35 73 02/25/16 19:30 Nasal Cannula 3.00 CBC/BMP: 02/26/16 0716 02/26/16 0716 Lab Results Laboratory Tests Test 02/26/16 02/26/16 07:16 09:34 White Blood Count 13.7 TH/MM3 Red Blood Count 4.57 MIL/MM3 Hemoglobin 13.6 GM/DL Hematocrit 41.0 % Mean Corpuscular Volume 89.8 FL Mean Corpuscular Hemoglobin 29.8 PG Mean Corpuscular Hemoglobin 33.2 % Concent Red Cell Distribution Width 14.5 % Platelet Count 379 TH/MM3 Mean Platelet Volume 9.1 FL Neutrophils (%) (Auto) 79.5 % Lymphocytes (%) (Auto) 11.3 % Monocytes (%) (Auto) 8.9 % Eosinophils (%) (Auto) 0.3 % Basophils (%) (Auto) 0.0 % Neutrophils # (Auto) 10.9 TH/MM3 Lymphocytes # (Auto) 1.5 TH/MM3 Monocytes # (Auto) 1.2 TH/MM3 Eosinophils # (Auto) 0.0 TH/MM3 Basophils # (Auto) 0.0 TH/MM3 CBC Comment AUTO DIFF Differential Total Cells 100 Counted Neutrophils % (Manual) 75 % Band Neutrophils % 8 % Lymphocytes % 9 % Monocytes % 4 % Neutrophils # (Manual) 11.9 TH/MM3 Metamyelocytes 1 % Myelocytes 3 % Differential Comment FINAL DIFF MANUAL Platelet Estimate NORMAL Platelet Morphology Comment ENLARGED Red Cell Morphology Comment NORMAL Sodium Level 139 MEQ/L Potassium Level 3.3 MEQ/L Chloride Level 98 MEQ/L Carbon Dioxide Level 32.5 MEQ/L Anion Gap 9 MEQ/L Blood Urea Nitrogen 16 MG/DL Creatinine 0.87 MG/DL Estimat Glomerular Filtration 91 ML/MIN Rate Random Glucose 91 MG/DL Calcium Level 7.7 MG/DL Total Bilirubin 1.1 MG/DL Aspartate Amino Transf 74 U/L (AST/SGOT) Alanine Aminotransferase 93 U/L (ALT/SGPT) Alkaline Phosphatase 156 U/L Total Protein 6.2 GM/DL Albumin 2.4 GM/DL Vancomycin Level Trough 15.2 MCG/ML Physical Exam General General Appearance: Well Developed, Well Nourished Eyes Eye Exam: Pupils Equal, Pupils Reactive, Extraocular Movement Intact, Jaundice Ears & Nose Ears & Nose Exam: Nasal Mucosa [place] Throat Throat Exam: Oral Mucosa [place] & Moist Neck Neck Exam: Neck Supple, Trachea Midline Pulmonary Resp Exam: Breath Sounds Equal, No Distress Cardiology CV Exam: Regular, Normal Sinus Rhythm Gastrointestinal/Abdomen GI Exam: Soft, Distended, Bowel Sounds Hypoactive GI Remarks Less distended than yesterday Musculoskeletal MS Exam: Joints Intact Integumentary Skin Exam: Warm, Dry Extremeties Extremities Exam: Pedal Pulses Palpable, Trace Edema Neurologic Neuro Exam: Alert, Awake, Oriented, Speech Clear, Moving All Extremities, No Focal Deficits Psychiatric Psych Exam: Appropriate Responses VTE Prophylaxis VTE Prophylaxis Device: SCDs PUD Prophylasis PUD Prophylaxis: Protonix Assessment/Plan Problem List: (1) Acute pancreatitis (2) Leukocytosis (3) Elevated LFTs (4) Abdominal pain (5) Pneumonia (6) Hyperglycemia (7) Tachycardia (8) Wheezing (9) Hypertension (10) Cholelithiasis Assessment/Plan S/P ERCP with balloon and stone retrieval 02/20/[address] Sanchez evaluated, recommends to wait until pt. more stable before proceeding with cholecystectomy T bili / LFTs trending up will follow . Abd. distended, abd xray shows ileus. Having BMs improving repeat abd. xray February 23 shows persistent mild gaseous distention of bowel loops Continue clear liquid diet Continue empiric abx Dilaudid for pain management PPI for GI prophylaxis SCDs for DVT prophylaxis BP stable Continue Vasotec PRN HR improved No more fever more than 48 hours less cough, wheezing continue empiric antibiotics Duonebs on Solumedrol will dc Continue IVF at 50/hr OOB PT IS q 2 WA Replace K Labs in am D/W RN D/W pt Problem Qualifiers (1) Acute pancreatitis: Qualified Code: K85.90 - Acute pancreatitis, unspecified complication status, unspecified pancreatitis type (2) Abdominal pain: Qualified Code: R10.11 - Right upper quadrant abdominal pain (3) Pneumonia: (4) Hypertension: Qualified Code: I10 - Essential hypertension (5) Cholelithiasis: Mike Yung MD Feb 26, 2016 17:08
[2016-02-26] MEDS: PANTOPRAZOLE SODIUM 40 MG VIAL IV PUSH SCH (17:38)
[2016-02-27] VITALS (10 sets, daily range): BP systolic 129–160; BP diastolic 70–80; PULSE 65–87; RESP 18–20; TEMP 98.2–100.4; O2SAT 91–97
[2016-02-27] MEDS: PIPERACIL-TAZO 3.375 GM PREMIX 50 ML IV SCH ×4 (00:31→17:14)
[2016-02-27] MEDS: DEXT 5%-NACL 0.45% 1000 ML INJ 1,000 ML IV SCH (04:00)
[2016-02-27] MEDS: metroNIDAZOLE 500 MG INJ 100 ML IV SCH ×3 (05:45→21:04)
[2016-02-27] MEDS: METOCLOPRAMIDE HCL 10 MG/2 ML VIAL IV PUSH SCH ×3 (05:46→21:02)
[2016-02-27 06:05] LABS: HEMATOCRIT 39.5 % (39.0-51.0); MEAN CELL VOLUME 88.5 FL (80.0-100.0); MEAN CORPUSCULAR HEMOGLOBIN 30.7 PG (27.0-34.0); MEAN CORPUSCULAR HGB CONC 34.6 % (32.0-36.0); PLATELET COUNT 379 TH/MM3 (150-450); RED BLOOD COUNT 4.47 MIL/MM3 (4.50-5.90); RED CELL DISTRIBUTION WIDTH 14.6 % (11.6-17.2); REVIEW FLAG FINAL; WHITE BLOOD COUNT 15.4 TH/MM3 (4.0-11.0)
[2016-02-27 06:06] LABS: AUTOMATED NEUTROPHIL # 12.6 TH/MM3 (1.8-7.7); BASOPHIL % 0.1 % (0.0-2.0); EOSINOPHIL # 0.1 TH/MM3 (0-0.4); EOSINOPHIL % 0.6 % (0.0-4.0); HEMATOCRIT 40.3 % (39.0-51.0); LYMPH % 9.6 % (9.0-44.0); LYMPHOCYTE # 1.4 TH/MM3 (1.0-4.8); MEAN CELL VOLUME 89.5 FL (80.0-100.0); MEAN CORPUSCULAR HEMOGLOBIN 29.9 PG (27.0-34.0); MEAN CORPUSCULAR HGB CONC 33.4 % (32.0-36.0); MONO % 5.8 % (0.0-8.0); NEUT % 83.9 % (16.0-70.0); PLATELET COUNT 390 TH/MM3 (150-450); RED CELL DISTRIBUTION WIDTH 14.6 % (11.6-17.2); WHITE BLOOD COUNT 15.1 TH/MM3 (4.0-11.0)
[2016-02-27 06:27] LABS: ALT (GPT) 79 U/L (12-78); ANION GAP 8 MEQ/L (5-15); AST (GOT) 50 U/L (15-37); BICARBONATE 31.2 MEQ/L (21.0-32.0); BLOOD UREA NITROGEN 15 MG/DL (7-18); CHLORIDE 97 MEQ/L (98-107); GLOMERULAR FILTRATION RATE 99 ML/MIN (>89); POTASSIUM 3.5 MEQ/L (3.5-5.1); SODIUM (NA) 136 MEQ/L (136-145)
[2016-02-27 06:30] LABS: ALKALINE PHOSPHATASE 125 U/L (45-117)
[2016-02-27 06:41] LABS: HEMO FLAGS AUTO DIFF
[2016-02-27] MEDS: HYDROmorphone HCL PF 1 MG/ML VIAL IV PUSH PRN ×2 (07:17→17:12)
[2016-02-27 08:19] LABS: BANDS 3 % (0-6); MYELOCYTES 1 % (0-0); NEUTROPHIL # MANUAL DIFF 12.8 TH/MM3 (1.8-7.7); PLATELET ESTIMATE SMEAR HIGH (NORMAL); PLATELET MORPHOLOGY NORMAL (NORMAL); POLYS (SEG NEUTROPHILS) 81 % (16-70); SCAN/DIFF FINAL DIFF MANUAL; WBC DIFF SAMPLE 100
[2016-02-27] MEDS: HEPARIN SODIUM - SQ 10,000 UNITS/ML VIAL SQ SCH (08:22)
[2016-02-27] MEDS: METOPROLOL TARTRATE 25 MG TAB PO SCH ×2 (08:22→21:02)
[2016-02-27] MEDS: VANCOMYCIN INJ 1,500 MG in SODIUM CHLORID 0.9% 500 ML INJ 500 ML IV SCH ×2 (08:22→21:08)
[2016-02-27] MEDS: amLODIPine BESYLATE 5 MG TAB PO SCH (08:22)
[2016-02-27] MEDS: POLYETHYLENE GLYCOL 17 GM PKG PO SCH (08:22)
[2016-02-27] MEDS: SODIUM CHLORIDE 0.9% FLUSH 5 ML FLUSH FLUSH SCH ×2 (08:23→21:09)
--- NOTE | 2016-02-27 08:47 | HHI.PR ---
Subjective Subjective Remarks tolerating regular diet well no n/v mild abd. pain, having BMs soft some coughing, no wheezing no fever sitting up in chair getting stronger Review of Systems Constitutional Constitutional Remarks 12 point ROS completed, limited, Vitals/Results Intake & Output 02/26/16 02/26/16 02/27/16 15:00 23:00 07:00 Intake Total 840 ml 700 ml Output Total 500 ml Balance 840 ml 200 ml Intake Oral 840 ml 700 ml Output Urine Total 500 ml # Voids 3 2 # Bowel Movements 0 0 Vital Signs Vital Signs Date Time Temp Pulse Resp B/P Pulse Ox O2 Delivery O2 Flow Rate FiO2 02/27/16 08:02 Nasal Cannula 3.00 02/27/16 04:00 98.5 67 20 160/74 95 02/27/16 00:00 99.4 65 20 145/72 97 02/26/16 20:15 Nasal Cannula 3.00 02/26/16 20:13 76 02/26/16 20:13 96 Nasal Cannula 5.00 02/26/16 20:00 99.4 75 20 173/89 97 02/26/16 16:00 97.9 70 20 163/82 94 02/26/16 12:00 99.3 82 20 214/102 95 202/96 CBC/BMP: 02/27/16 0420 02/27/16 0420 Lab Results Laboratory Tests Test 02/26/16 02/27/16 09:34 04:20 Vancomycin Level Trough 15.2 MCG/ML White Blood Count 15.4 TH/MM3 Red Blood Count 4.47 MIL/MM3 Hemoglobin 13.7 GM/DL Hematocrit 39.5 % Mean Corpuscular Volume 88.5 FL Mean Corpuscular Hemoglobin 30.7 PG Mean Corpuscular Hemoglobin 34.6 % Concent Red Cell Distribution Width 14.6 % Platelet Count 379 TH/MM3 Mean Platelet Volume 9.1 FL Neutrophils (%) (Auto) 83.9 % Lymphocytes (%) (Auto) 9.6 % Monocytes (%) (Auto) 5.8 % Eosinophils (%) (Auto) 0.6 % Basophils (%) (Auto) 0.1 % Neutrophils # (Auto) 12.6 TH/MM3 Lymphocytes # (Auto) 1.4 TH/MM3 Monocytes # (Auto) 0.9 TH/MM3 Eosinophils # (Auto) 0.1 TH/MM3 Basophils # (Auto) 0.0 TH/MM3 CBC Comment AUTO DIFF Differential Total Cells 100 Counted Neutrophils % (Manual) 81 % Band Neutrophils % 3 % Lymphocytes % 13 % Monocytes % 2 % Neutrophils # (Manual) 12.8 TH/MM3 Myelocytes 1 % Differential Comment FINAL DIFF MANUAL Platelet Estimate HIGH Platelet Morphology Comment NORMAL Sodium Level 136 MEQ/L Potassium Level 3.5 MEQ/L Chloride Level 97 MEQ/L Carbon Dioxide Level 31.2 MEQ/L Anion Gap 8 MEQ/L Blood Urea Nitrogen 15 MG/DL Creatinine 0.81 MG/DL Estimat Glomerular Filtration 99 ML/MIN Rate Random Glucose 108 MG/DL Calcium Level 8.0 MG/DL Total Bilirubin 1.0 MG/DL Aspartate Amino Transf 50 U/L (AST/SGOT) Alanine Aminotransferase 79 U/L (ALT/SGPT) Alkaline Phosphatase 125 U/L Total Protein 5.8 GM/DL Albumin 2.2 GM/DL Physical Exam General General Appearance: Well Developed, Well Nourished Appearance Remarks tachypneic Eyes Eye Exam: Pupils Equal, Pupils Reactive, Extraocular Movement Intact, Jaundice Ears & Nose Ears & Nose Exam: Nasal Mucosa [place] Throat Throat Exam: Oral Mucosa [place] & Moist Neck Neck Exam: Neck Supple, Trachea Midline Pulmonary Resp Exam: Breath Sounds Equal, No Distress Resp Remarks diminished Cardiology CV Exam: Regular, Normal Sinus Rhythm Gastrointestinal/Abdomen GI Exam: Soft, Bowel Sounds Present, Positive Bowel Movement, Distended GI Remarks mild tenderness epigastric Musculoskeletal MS Exam: Joints Intact Integumentary Skin Exam: Warm, Dry Extremeties Extremities Exam: Pedal Pulses Palpable, Trace Edema Neurologic Neuro Exam: Alert, Awake, Oriented, Speech Clear, Moving All Extremities, No Focal Deficits Psychiatric Psych Exam: Appropriate Responses VTE Prophylaxis VTE Prophylaxis Device: SCDs VTE Prophylaxis Meds: Heparin PUD Prophylasis PUD Prophylaxis: Protonix Assessment/Plan Problem List: (1) Acute pancreatitis (2) Leukocytosis (3) Elevated LFTs (4) Abdominal pain (5) Pneumonia (6) Hyperglycemia (7) Tachycardia (8) Wheezing (9) Hypertension (10) Cholelithiasis Assessment/Plan S/P ERCP with balloon and stone retrieval 02/20/[address] Sanchez evaluated, recommends to wait until pt. more stable before proceeding with cholecystectomy T bili / LFTs trending up will follow . Ileus resolving, having BMs Tolerating regular diet well Continue empiric abx Dilaudid for pain management PPI for GI prophylaxis SCDs for DVT prophylaxis BP stable Continue Vasotec PRN HR improved No more fever more than 48 hours less cough, wheezing continue empiric antibiotics Duonebs DC IVF OOB PT IS q 2 WA Overall improving CM for discharge planning, self pay, will need assistance with meds. Possible dc today or tomorrow D/W RN D/W pt D/W Dr. Yung This patient was seen by myself and Dr. Yung, this note is written on his behalf Problem Qualifiers (1) Acute pancreatitis: Qualified Code: K85.90 - Acute pancreatitis, unspecified complication status, unspecified pancreatitis type (2) Abdominal pain: Qualified Code: R10.11 - Right upper quadrant abdominal pain (3) Pneumonia: (4) Hypertension: Qualified Code: I10 - Essential hypertension (5) Cholelithiasis: Hermila Dao Feb 27, 2016 08:47
[2016-02-27] MEDS ORDERED: POTASSIUM CL 40 MEQ/30 ML LIQ UDC PO ONE (09:00)
[2016-02-27] MEDS ORDERED: RESP: ALBUTEROL 2.5 MG/IPRATROPIUM 0.5 MG NEB (PRN) NEB (13:00)
--- NOTE | 2016-02-27 14:03 | HHI.PR ---
Subjective Subjective Notes He is tolerating some diet. Having bowel movts. Abdominal pain better but still hurts some especially with deep breaths. Objective Vitals/I&O Vital Signs Date Time Temp Pulse Resp B/P Pulse Ox O2 Delivery O2 Flow Rate FiO2 02/27/16 08:48 94 Nasal Cannula 4.50 02/27/16 08:04 98.7 73 20 129/73 Labs Laboratory Tests Test 02/27/16 04:20 White Blood Count 15.4 Red Blood Count 4.47 Hemoglobin 13.7 Hematocrit 39.5 Mean Corpuscular Volume 88.5 Mean Corpuscular Hemoglobin 30.7 Mean Corpuscular Hemoglobin 34.6 Concent Red Cell Distribution Width 14.6 Platelet Count 379 Mean Platelet Volume 9.1 Neutrophils (%) (Auto) 83.9 Lymphocytes (%) (Auto) 9.6 Monocytes (%) (Auto) 5.8 Eosinophils (%) (Auto) 0.6 Basophils (%) (Auto) 0.1 Neutrophils # (Auto) 12.6 Lymphocytes # (Auto) 1.4 Monocytes # (Auto) 0.9 Eosinophils # (Auto) 0.1 Basophils # (Auto) 0.0 CBC Comment AUTO DIFF Differential Total Cells 100 Counted Neutrophils % (Manual) 81 Band Neutrophils % 3 Lymphocytes % 13 Monocytes % 2 Neutrophils # (Manual) 12.8 Myelocytes 1 Differential Comment FINAL DIFF MANUAL Platelet Estimate HIGH Platelet Morphology Comment NORMAL Sodium Level 136 Potassium Level 3.5 Chloride Level 97 Carbon Dioxide Level 31.2 Anion Gap 8 Blood Urea Nitrogen 15 Creatinine 0.81 Estimat Glomerular Filtration 99 Rate Random Glucose 108 Calcium Level 8.0 Total Bilirubin 1.0 Aspartate Amino Transf 50 (AST/SGOT) Alanine Aminotransferase 79 (ALT/SGPT) Alkaline Phosphatase 125 Total Protein 5.8 Albumin 2.2 Radiology Last Impressions Abdomen X-Ray 02/21/16 0000 Signed Impressions: Service Date/Time: Sunday, February 21, 2016 12:56 - CONCLUSION: 1. Gaseous distention of bowel most characteristic of ileus. Jose Carlos Weeks MD GI Procedure 02/20/16 0000 Signed Impressions: Service Date/Time: Saturday, February 20, 2016 16:45 - CONCLUSION: ERCP as above. William Escobar MD Cholangiopancreatography MRI 02/20/16 0000 Signed Impressions: Service Date/Time: Saturday, February 20, 2016 14:46 - CONCLUSION: 1. Biliary distention. At least two 3-4 mm stones and small amount of debris floating around in the distal common bile duct. A few similar size stones are in the gallbladder neck. I don't see an acutely obstructing stone of the duct or gallbladder. 2. Pancreatitis associated peripancreatic edema not significantly changed from the CT. No pancreatic duct dilatation. William Escobar MD Chest X-Ray 02/20/16 0000 Signed Impressions: Service Date/Time: Saturday, February 20, 2016 18:00 - CONCLUSION: Endotracheal tube tip at the keren. It should be pulled back a couple centimeters. There is left greater than right basilar atelectasis. William Escobar MD Abdomen/Pelvis CT 02/18/16 0000 Signed Impressions: Service Date/Time: Saturday, February 18, 2016 22:43 - CONCLUSION: There are some areas of lower density within the pancreas with significant peripancreatic fluid suspicious for pancreatitis. No drainable fluid collection or abscess is identified. The patient's common bile duct is dilated to 10 mm although no calcified stones are seen. The CBD is slightly more prominent than in December. Khoa Zhu MD Narrative Exam No distress, awake and alert Pulm: clear dequan, on 2L NC O2 Abd: Mild distention, soft, nontender A/P Assessment and Plan 55 yo M with gallstone pancreatitis, choledocholithiasis s/p ERCP with stone extraction. Pancreatitis much better. His symptoms are improving. I would like to proceed with lap mich, possible open, tomorrow. I discussed this with the patient and he desires to proceed. Hermila US translated between the patient and I. She agrees he can proceed to OR at this time. DanielGrady MD Feb 27, 2016 14:03
[2016-02-27] MEDS: PANTOPRAZOLE SODIUM 40 MG VIAL IV PUSH SCH (17:09)
[2016-02-28] VITALS (12 sets, daily range): BP systolic 123–157; BP diastolic 65–79; PULSE 64–98; RESP 16–20; TEMP 98.2–99.6; O2SAT 90–97
[2016-02-28] MEDS: PIPERACIL-TAZO 3.375 GM PREMIX 50 ML IV SCH ×4 (00:14→17:11)
[2016-02-28] MEDS: METOCLOPRAMIDE HCL 10 MG/2 ML VIAL IV PUSH SCH ×3 (05:32→21:16)
[2016-02-28] MEDS: metroNIDAZOLE 500 MG INJ 100 ML IV SCH ×3 (05:33→21:14)
[2016-02-28 08:05] LABS: INDIRECT BILIRUBIN 0.6 MG/DL (0.0-0.8); TOTAL BILIRUBIN ADULT 1.1 MG/DL (0.2-1.0)
[2016-02-28] MEDS: VANCOMYCIN INJ 1,500 MG in SODIUM CHLORID 0.9% 500 ML INJ 500 ML IV SCH ×2 (08:39→21:14)
[2016-02-28] MEDS: SODIUM CHLORIDE 0.9% FLUSH 5 ML FLUSH FLUSH SCH ×2 (08:40→21:18)
[2016-02-28] MEDS: POLYETHYLENE GLYCOL 17 GM PKG PO SCH (08:40)
[2016-02-28] MEDS: amLODIPine BESYLATE 5 MG TAB PO SCH (08:44)
[2016-02-28] MEDS: METOPROLOL TARTRATE 25 MG TAB PO SCH ×2 (08:44→21:16)
[2016-02-28] MEDS ORDERED: MIDAZOLAM HCL 2 MG/2 ML VIAL ONE ×2 (13:52→15:27)
[2016-02-28] MEDS ORDERED: FAMOTIDINE 20 MG/2 ML VIAL ONE (13:52)
--- NOTE | 2016-02-28 14:02 | HHI.PR ---
Subjective Interval History Nothing by mouth for surgery no n/v Some abd. pain, having BMs soft some coughing, no wheezing no fever sitting up in chair getting stronger Vitals/Results Intake & Output 02/27/16 02/27/16 02/28/16 15:00 23:00 07:00 Intake Total 600 ml 360 ml 0 ml Output Total 500 ml Balance 100 ml 360 ml 0 ml Intake Oral 600 ml 360 ml 0 ml Output Urine Total 500 ml # Voids 5 3 # Bowel Movements 0 0 1 Vital Signs Vital Signs Date Time Temp Pulse Resp B/P Pulse Ox O2 Delivery O2 Flow Rate FiO2 02/28/16 12:06 98.4 64 20 138/67 90 02/28/16 10:07 94 Nasal Cannula 1.00 02/28/16 08:06 99.6 75 20 138/65 92 02/28/16 08:00 79 02/28/16 07:45 Nasal Cannula 1.00 02/28/16 04:28 98.2 70 18 148/71 94 02/27/16 23:37 98.2 73 18 155/76 91 02/27/16 21:46 Nasal Cannula 2.00 02/27/16 20:55 98.5 81 18 147/80 94 02/27/16 20:00 Nasal Cannula 1.00 02/27/16 20:00 85 02/27/16 16:05 100.4 87 18 153/74 92 CBC/BMP: 02/27/16 0420 02/27/16 0420 Lab Results Laboratory Tests Test 02/28/16 06:26 Total Bilirubin 1.1 MG/DL Direct Bilirubin 0.5 MG/DL Indirect Bilirubin 0.6 MG/DL Aspartate Amino Transf 36 U/L (AST/SGOT) Alanine Aminotransferase 61 U/L (ALT/SGPT) Alkaline Phosphatase 121 U/L Total Protein 6.4 GM/DL Albumin 2.3 GM/DL Physical Exam General General Appearance: Well Developed, Well Nourished Eyes Eye Exam: Pupils Equal, Pupils Reactive, Extraocular Movement Intact, Jaundice Ears & Nose Ears & Nose Exam: Nasal Mucosa [place] Throat Throat Exam: Oral Mucosa [place] & Moist Neck Neck Exam: Neck Supple, Trachea Midline Pulmonary Resp Exam: Breath Sounds Equal, No Distress Cardiology CV Exam: Regular, Normal Sinus Rhythm Gastrointestinal/Abdomen GI Exam: Soft, Bowel Sounds Present, Positive Bowel Movement, Distended GI Remarks Less distended than yesterday. Tender mildly in upper region. No rebound no guarding no rigidity Musculoskeletal MS Exam: Joints Intact Integumentary Skin Exam: Warm, Dry Extremeties Extremities Exam: Pedal Pulses Palpable, Trace Edema Neurologic Neuro Exam: Alert, Awake, Oriented, Speech Clear, Moving All Extremities, No Focal Deficits Psychiatric Psych Exam: Appropriate Responses VTE Prophylaxis VTE Prophylaxis Device: SCDs VTE Prophylaxis Meds: Heparin PUD Prophylasis PUD Prophylaxis: Protonix Assessment/Plan Problem List: (1) Acute pancreatitis (2) Leukocytosis (3) Elevated LFTs (4) Abdominal pain (5) Pneumonia (6) Hyperglycemia (7) Tachycardia (8) Wheezing (9) Hypertension (10) Cholelithiasis Assessment/Plan S/P ERCP with balloon and stone retrieval 02/20/[address] Sanchez evaluated, recommends for cholecystectomy today T bili / LFTs trending up will follow . Ileus resolving, having BMs Tolerating regular diet well Continue empiric abx Dilaudid for pain management PPI for GI prophylaxis SCDs for DVT prophylaxis BP stable Continue Vasotec PRN HR improved No more fever more than 48 hours less cough, wheezing continue empiric antibiotics Duonebs DC IVF OOB PT IS q 2 WA Overall improving CM for discharge planning, self pay, will need assistance with meds. DC dependent after surgery D/W RN D/W pt Problem Qualifiers (1) Acute pancreatitis: Qualified Code: K85.90 - Acute pancreatitis, unspecified complication status, unspecified pancreatitis type (2) Abdominal pain: Qualified Code: R10.11 - Right upper quadrant abdominal pain (3) Pneumonia: (4) Hypertension: Qualified Code: I10 - Essential hypertension (5) Cholelithiasis: Mike Yung MD Feb 28, 2016 14:02
[2016-02-28] MEDS ORDERED: LACTATED RINGER'S 1000 ML INJ 1,000 ML IV ONE (14:15)
[2016-02-28] MEDS ORDERED: ONDANSETRON HCL 4 MG/2 ML VIAL IV PUSH ONE (14:15)
[2016-02-28] MEDS ORDERED: PHENYLEPH/NS 1000 MCG/10 ML SYR IV ONE (14:15)
[2016-02-28] MEDS ORDERED: PROPOFOL 200 MG/20 ML AMP IV ONE (14:15)
[2016-02-28] MEDS ORDERED: BUPIVACAINE/EPINEPHRINE 0.25% PF 10 ML VIAL INFIL ONE (14:17)
[2016-02-28] MEDS ORDERED: SUGAMMADEX SODIUM 200 MG/2 ML VIAL IV PUSH ONE ×2 (15:13)
[2016-02-28] MEDS ORDERED: PERC5TAB12 PO (15:18)
[2016-02-28] MEDS ORDERED: DO NOT ADM ANY ANTICOAGULANT DRUGS XX PRN (15:20)
--- NOTE | 2016-02-28 15:23 | PD.OP ---
cc: Grady Sanchez MD Operative Report Date of Surgery: Feb 28, 2016 Preoperative Diagnosis: (1) Acute gallstone pancreatitis Postoperative Diagnosis: (1) Acute gallstone pancreatitis Procedure: Laparoscopic cholecystectomy Anesthesia: GETA Surgeon: Grady Sanchez Psychiatric Assistant(s): Danica CORBETT Operation and Findings: Complications: None apparent EBL: 5 cc Operative findings: The patient had a long gallbladder which seems to empty directly into the common duct. There was not a normal anatomic narrowing to form the cystic duct. Therefore the gallbladder was taken down in a dome down fashion and 2 Endoloops placed at the base of the gallbladder. Procedure in detail: The patient was taken to the operating room and placed in the supine position. General endotracheal anesthesia was induced. The abdomen was prepped and draped in usual sterile fashion and a surgical timeout was performed to verify correct patient procedure and site. Appropriate perioperative antibiotics were administered. Local anesthetic was injected in the skin and subcutaneous tissue superior to the umbilicus and a 5 mm incision performed. The abdomen was entered using the Optiview 5 mm trocar with direct laparoscopic visualization. The abdomen was then insufflated to 15 mmHg with CO2 gas which the patient tolerated well. Next a 12 mm port was placed in the epigastrium and two 5 mm ports in the right upper quadrant and right lateral abdomen. The patient was placed in reverse Trendelenburg position and turned slightly to the left. Attention was turned to the right upper quadrant and the dome of the gallbladder was grasped and retracted cephalad. The infundibulum was retracted laterally to expose Calot's triangle. Careful blunt dissection was carried out in the area of the infundibulum. However, there was not a normal narrowing into the cystic duct. It seemed that the gallbladder was of the variant to empty directly into the common bile duct. Because of the abnormal anatomy, I removed the gallbladder in a dome down fashion. The gallbladder was then attached by only one structure which appeared to be the base of the gallbladder. Again it was thickened and fairly wide and therefore 2 PDS Endoloops were placed. One Endoloop was placed proximal in the gallbladder and it was then transected. Hemostasis was achieved. The gallbladder was then removed from the abdomen using an Endo Catch bag. The Endoloops were in place on the cystic duct/base of the gallbladder with no leakage. At this point, the abdomen was allowed to desufflate and trochars were removed. The fascia at the 12 mm port site was closed with 0 Vicryl suture. Skin was closed with subcuticular 4-0 Monocryl as well as Dermabond. The patient tolerated the procedure well and was extubated and taken to PACU in stable condition. All sponge and instrument counts were correct. Grady Sanchez MD Feb 28, 2016 15:23
[2016-02-28] MEDS ORDERED: *morphine SULFATE 8 MG/ML PERIprocedure ONLY ONE (15:27)
[2016-02-28] MEDS ORDERED: fentaNYL CITRATE 250 MCG/5 ML AMP ONE (15:28)
[2016-02-28] MEDS ORDERED: *Lactated Ringer's INJ 1,000 ML ONE (15:34)
[2016-02-28] MEDS ORDERED: *HYDROmorphone PF 1 MG VIAL PERIprocedural Use ONLY ONE (16:09)
[2016-02-28] MEDS: PANTOPRAZOLE SODIUM 40 MG VIAL IV PUSH SCH (17:10)
[2016-02-29] VITALS (7 sets, daily range): BP systolic 141–165; BP diastolic 71–82; PULSE 58–75; RESP 16–20; TEMP 97.8–98.2; O2SAT 94–96
[2016-02-29] MEDS: PIPERACIL-TAZO 3.375 GM PREMIX 50 ML IV SCH ×4 (01:22→17:07)
[2016-02-29] MEDS: metroNIDAZOLE 500 MG INJ 100 ML IV SCH ×3 (05:49→21:19)
[2016-02-29] MEDS: oxyCODONE/ACETAMINOPHEN 5 MG/325 MG TAB PO PRN ×2 (05:52→21:24)
[2016-02-29] MEDS: METOCLOPRAMIDE HCL 10 MG/2 ML VIAL IV PUSH SCH ×3 (05:54→21:19)
[2016-02-29] MEDS: SODIUM CHLORIDE 0.9% FLUSH 5 ML FLUSH FLUSH PRN (05:55)
[2016-02-29] MEDS: SODIUM CHLORIDE 0.9% FLUSH 5 ML FLUSH FLUSH SCH ×2 (08:16→21:20)
[2016-02-29] MEDS: VANCOMYCIN INJ 1,500 MG in SODIUM CHLORID 0.9% 500 ML INJ 500 ML IV SCH (08:17)
[2016-02-29] MEDS: POLYETHYLENE GLYCOL 17 GM PKG PO SCH (08:17)
[2016-02-29] MEDS: amLODIPine BESYLATE 5 MG TAB PO SCH (08:17)
[2016-02-29] MEDS: METOPROLOL TARTRATE 25 MG TAB PO SCH ×2 (08:18→21:19)
--- NOTE | 2016-02-29 10:48 | HHI.PR ---
Subjective Subjective Remarks s/p lap mich 02/27 tolerating diet well, no n/v minimal abd. pain mild cough no cp no sob appetite fair, not very hungry no fever no bm yet Review of Systems Constitutional Constitutional Remarks 12 point ROS completed, limited, Vitals/Results Intake & Output 02/28/16 02/28/16 02/29/16 15:00 23:00 07:00 Intake Total 0 ml 1800 ml 480 ml Output Total 265 ml Balance 0 ml 1535 ml 480 ml Intake Oral 0 ml 600 ml 480 ml Other 1200 ml Output Urine Total 250 ml Estimated Blood Loss 15 ml # Voids 4 0 4 # Bowel Movements 1 0 2 Vital Signs Vital Signs Date Time Temp Pulse Resp B/P Pulse Ox O2 Delivery O2 Flow Rate FiO2 02/29/16 09:08 72 02/29/16 08:15 Nasal Cannula 2.00 50 Humidified 02/29/16 08:00 97.9 69 20 141/71 95 02/29/16 07:00 18 02/29/16 04:15 97.8 70 16 149/81 95 02/28/16 23:20 99.3 70 16 157/79 94 02/28/16 21:27 Nasal Cannula 2.00 02/28/16 20:18 98.3 85 16 134/70 95 02/28/16 19:08 84 02/28/16 17:51 95 Nasal Cannula 1.00 02/28/16 16:15 80 02/28/16 16:15 98.9 80 14 115/73 95 Nasal Cannula 2 02/28/16 16:05 98.5 80 20 123/69 97 02/28/16 16:00 83 14 132/75 96 Nasal Cannula 2 02/28/16 15:45 79 14 136/75 95 Nasal Cannula 2 02/28/16 15:30 81 16 138/72 94 Nasal Cannula 2 02/28/16 15:20 98 02/28/16 15:20 98.3 98 16 137/70 93 Nasal Cannula 2 02/28/16 12:06 98.4 64 20 138/67 90 CBC/BMP: 02/27/16 0420 02/29/16 0652 Lab Results Laboratory Tests Test 02/29/16 06:52 Creatinine 1.50 MG/DL Estimat Glomerular Filtration 48 ML/MIN Rate Physical Exam General General Appearance: Well Developed, Well Nourished Eyes Eye Exam: Pupils Equal, Pupils Reactive, Extraocular Movement Intact, Jaundice Ears & Nose Ears & Nose Exam: Nasal Mucosa [place] Throat Throat Exam: Oral Mucosa [place] & Moist Neck Neck Exam: Neck Supple, Trachea Midline Pulmonary Resp Exam: Breath Sounds Equal, No Distress Resp Remarks diminished Cardiology CV Exam: Regular, Normal Sinus Rhythm Gastrointestinal/Abdomen GI Exam: Soft, Distended, Bowel Sounds Hypoactive GI Remarks diffuse tenderness x 4 lap incisions, intact, no redness, Musculoskeletal MS Exam: Joints Intact Integumentary Skin Exam: Warm, Dry Extremeties Extremities Exam: Pedal Pulses Palpable, Trace Edema Neurologic Neuro Exam: Alert, Awake, Oriented, Speech Clear, Moving All Extremities, No Focal Deficits Psychiatric Psych Exam: Appropriate Responses VTE Prophylaxis VTE Prophylaxis Device: SCDs VTE Prophylaxis Meds: Heparin PUD Prophylasis PUD Prophylaxis: Protonix Assessment/Plan Problem List: (1) Acute pancreatitis (2) Leukocytosis (3) Elevated LFTs (4) Abdominal pain (5) Pneumonia (6) Hyperglycemia (7) Tachycardia (8) Wheezing (9) Hypertension (10) Cholelithiasis Assessment/Plan S/P ERCP with balloon and stone retrieval 02/20/[address] Sanchez's input appreciated. S/P lab mich 02/27 post op care T bili / LFTs trending up will follow . Ileus resolving, having BMs Tolerating regular diet well Continue empiric abx Dilaudid for pain management PPI for GI prophylaxis SCDs for DVT prophylaxis BP stable Continue Vasotec PRN Duonebs/oxygen OOB PT IS q 2 WA Minimal pain, tolerated surgery well no fever DC planning in progress Plan to dc tomorrow if okay with surg. Will call son to discuss dc plan D/W RN D/W pt D/W Dr. Yung This patient was seen by myself and Dr. Yung, this note is written on his behalf. Problem Qualifiers (1) Acute pancreatitis: Qualified Code: K85.90 - Acute pancreatitis, unspecified complication status, unspecified pancreatitis type (2) Abdominal pain: Qualified Code: R10.11 - Right upper quadrant abdominal pain (3) Pneumonia: (4) Hypertension: Qualified Code: I10 - Essential hypertension (5) Cholelithiasis: Hermila DaoP Feb 29, 2016 10:47
[2016-02-29] MEDS: SODIUM CHLOR 0.9% 1000 ML INJ 1,000 ML IV SCH (12:20)
--- NOTE | 2016-02-29 16:47 | HHI.PR ---
Subjective Subjective Notes Doing well post op. No N/V. Pain ok. Cr increased this am. Objective Vitals/I&O Vital Signs Date Time Temp Pulse Resp B/P Pulse Ox O2 Delivery O2 Flow Rate FiO2 02/29/16 16:00 98.2 66 20 150/76 94 02/29/16 14:17 Room Air 02/29/16 13:06 1.00 02/29/16 08:15 50 Labs Laboratory Tests Test 02/29/16 06:52 Creatinine 1.50 Estimat Glomerular Filtration 48 Rate Radiology Last Impressions Abdomen X-Ray 02/21/16 0000 Signed Impressions: Service Date/Time: Sunday, February 21, 2016 12:56 - CONCLUSION: 1. Gaseous distention of bowel most characteristic of ileus. Jose Carlos Weeks MD GI Procedure 02/20/16 0000 Signed Impressions: Service Date/Time: Saturday, February 20, 2016 16:45 - CONCLUSION: ERCP as above. William Escobar MD Cholangiopancreatography MRI 02/20/16 0000 Signed Impressions: Service Date/Time: Saturday, February 20, 2016 14:46 - CONCLUSION: 1. Biliary distention. At least two 3-4 mm stones and small amount of debris floating around in the distal common bile duct. A few similar size stones are in the gallbladder neck. I don't see an acutely obstructing stone of the duct or gallbladder. 2. Pancreatitis associated peripancreatic edema not significantly changed from the CT. No pancreatic duct dilatation. William Escobar MD Chest X-Ray 02/20/16 0000 Signed Impressions: Service Date/Time: Saturday, February 20, 2016 18:00 - CONCLUSION: Endotracheal tube tip at the keren. It should be pulled back a couple centimeters. There is left greater than right basilar atelectasis. William Escobar MD Abdomen/Pelvis CT 02/18/16 0000 Signed Impressions: Service Date/Time: Thursday, February 18, 2016 22:43 - CONCLUSION: There are some areas of lower density within the pancreas with significant peripancreatic fluid suspicious for pancreatitis. No drainable fluid collection or abscess is identified. The patient's common bile duct is dilated to 10 mm although no calcified stones are seen. The CBD is slightly more prominent than in December. Khoa Zhu MD Narrative Exam No distress, awake and alert Abd: Mild distention, soft, mild post op ttp, inc c/d/i A/P Assessment and Plan 55 yo M with gallstone pancreatitis, choledocholithiasis s/p ERCP with stone extraction, POD 1 s/p lap mich. Doing well post op. From standpoint of gallbladder and pancreas he does not need further antibiotics. Doing well post op and ok for discharge from surgical standpoint, although rising Cr being followed by medical team. F/u with me in 2 weeks. Daniel,Grady ROACH Feb 29, 2016 16:47
[2016-02-29] MEDS: PANTOPRAZOLE SODIUM 40 MG VIAL IV PUSH SCH (17:06)
[2016-02-29] MEDS: ONDANSETRON HCL 4 MG/2 ML VIAL IVP PRN (17:12)
[2016-02-29] MEDS ORDERED: PHARMACY ORDERED LAB XX ONE (20:45)
[2016-03-01 00:10] VITALS: BP 153/73; PULSE 60; RESP 16; TEMP 97.8; O2SAT 95
[2016-03-01] MEDS: PIPERACIL-TAZO 3.375 GM PREMIX 50 ML IV SCH ×2 (00:26→05:36)
[2016-03-01] MEDS: SODIUM CHLOR 0.9% 1000 ML INJ 1,000 ML IV SCH ×2 (00:27→16:34)
[2016-03-01] MEDS: metroNIDAZOLE 500 MG INJ 100 ML IV SCH (05:36)
[2016-03-01] MEDS: METOCLOPRAMIDE HCL 10 MG/2 ML VIAL IV PUSH SCH ×3 (05:36→21:31)
[2016-03-01 05:57] LABS: MEAN CELL VOLUME 89.9 FL (80.0-100.0); MEAN CORPUSCULAR HEMOGLOBIN 29.9 PG (27.0-34.0); MEAN CORPUSCULAR HGB CONC 33.3 % (32.0-36.0); PLATELET COUNT 506 TH/MM3 (150-450); RED BLOOD COUNT 4.45 MIL/MM3 (4.50-5.90); RED CELL DISTRIBUTION WIDTH 14.7 % (11.6-17.2); REVIEW FLAG FINAL; WHITE BLOOD COUNT 13.4 TH/MM3 (4.0-11.0)
[2016-03-01 06:20] LABS: BICARBONATE 28.2 MEQ/L (21.0-32.0); MAGNESIUM 2.2 MG/DL (1.5-2.5); POTASSIUM 3.3 MEQ/L (3.5-5.1)
[2016-03-01 08:00] VITALS: BP 150/70; PULSE 69; RESP 20; TEMP 97.8; O2SAT 92
[2016-03-01] MEDS: SODIUM CHLORIDE 0.9% FLUSH 5 ML FLUSH FLUSH SCH ×2 (08:59→21:31)
[2016-03-01] MEDS: METOPROLOL TARTRATE 25 MG TAB PO SCH ×2 (09:02→21:31)
[2016-03-01] MEDS: POLYETHYLENE GLYCOL 17 GM PKG PO SCH (09:02)
[2016-03-01] MEDS: amLODIPine BESYLATE 5 MG TAB PO SCH (09:02)
[2016-03-01] MEDS: ONDANSETRON HCL 4 MG/2 ML VIAL IVP PRN ×2 (09:05→16:26)
--- NOTE | 2016-03-01 09:33 | HHI.PR ---
Subjective Subjective Remarks s/p lap mich 02/27 having loose stools, getting Miralax nausea after meals, eating small amounts abd. less tender no wheezing mild cough no sob no fever Review of Systems Constitutional Constitutional Remarks 12 point ROS completed, limited, Vitals/Results Intake & Output 02/29/16 02/29/16 03/01/16 15:00 23:00 07:00 Intake Total 1099 ml 898 ml 969 ml Balance 1099 ml 898 ml 969 ml Intake Oral 360 ml 320 ml 180 ml IV Total 739 ml 578 ml 789 ml # Voids 3 3 2 # Bowel Movements 1 Vital Signs Vital Signs Date Time Temp Pulse Resp B/P Pulse Ox O2 Delivery O2 Flow Rate FiO2 03/01/16 08:00 97.8 69 20 150/70 92 03/01/16 00:10 97.8 60 16 153/73 95 02/29/16 21:41 21 02/29/16 20:00 97.8 75 16 165/82 95 02/29/16 19:15 71 02/29/16 19:15 97 Room Air 02/29/16 16:00 98.2 66 20 150/76 94 02/29/16 14:17 96 Room Air 02/29/16 13:06 96 Nasal Cannula 1.00 02/29/16 12:00 98.1 58 20 147/79 96 CBC/BMP: 03/01/16 0400 03/01/16 0400 Lab Results Laboratory Tests Test 03/01/16 04:00 White Blood Count 13.4 TH/MM3 Red Blood Count 4.45 MIL/MM3 Hemoglobin 13.3 GM/DL Hematocrit 40.0 % Mean Corpuscular Volume 89.9 FL Mean Corpuscular Hemoglobin 29.9 PG Mean Corpuscular Hemoglobin 33.3 % Concent Red Cell Distribution Width 14.7 % Platelet Count 506 TH/MM3 Mean Platelet Volume 8.6 FL Sodium Level 141 MEQ/L Potassium Level 3.3 MEQ/L Chloride Level 105 MEQ/L Carbon Dioxide Level 28.2 MEQ/L Anion Gap 8 MEQ/L Blood Urea Nitrogen 16 MG/DL Creatinine 1.49 MG/DL Estimat Glomerular Filtration 49 ML/MIN Rate Random Glucose 100 MG/DL Calcium Level 8.0 MG/DL Magnesium Level 2.2 MG/DL Physical Exam General General Appearance: Well Developed, Well Nourished Eyes Eye Exam: Pupils Equal, Pupils Reactive, Extraocular Movement Intact, Jaundice Ears & Nose Ears & Nose Exam: Nasal Mucosa [place] Throat Throat Exam: Oral Mucosa [place] & Moist Neck Neck Exam: Neck Supple, Trachea Midline Pulmonary Resp Exam: Breath Sounds Equal, No Distress Resp Remarks diminished Cardiology CV Exam: Regular, Normal Sinus Rhythm Gastrointestinal/Abdomen GI Exam: Soft, Bowel Sounds Present, Positive Bowel Movement, Non-Distended, Bowel Sounds Hypoactive GI Remarks diffuse tenderness x 4 lap incisions, intact, no redness, Musculoskeletal MS Exam: Joints Intact Integumentary Skin Exam: Warm, Dry Extremeties Extremities Exam: Pedal Pulses Palpable, Trace Edema Neurologic Neuro Exam: Alert, Awake, Oriented, Speech Clear, Moving All Extremities, No Focal Deficits Psychiatric Psych Exam: Appropriate Responses VTE Prophylaxis VTE Prophylaxis Device: SCDs VTE Prophylaxis Meds: Heparin PUD Prophylasis PUD Prophylaxis: Protonix Assessment/Plan Problem List: (1) Acute pancreatitis (2) Leukocytosis (3) Elevated LFTs (4) Abdominal pain (5) Pneumonia (6) Hyperglycemia (7) Tachycardia (8) Wheezing (9) Hypertension (10) Cholelithiasis Assessment/Plan S/P ERCP with balloon and stone retrieval 02/20/[address] Sanchez's input appreciated. S/P lab mich 02/27 post op care Ileus resolved, having BMs Tolerating regular diet well Continue empiric abx Dilaudid for pain management PPI for GI prophylaxis SCDs for DVT prophylaxis BP stable Continue Vasotec PRN Duonebs/oxygen OOB PT IS q 2 WA Minimal pain, tolerated surgery well no fever loose stools, instructed RN to hold Miralax antiemetics PRN Creat elevated, continue NS @ 75 off Vanco, d/c other Zosyn and Flagyl BMP in am, if creat stable, plan to dc D/W RN D/W pt D/W Dr. Yung This patient was seen by myself and Dr. Yung, this note is written on his behalf. Problem Qualifiers (1) Acute pancreatitis: Qualified Code: K85.90 - Acute pancreatitis, unspecified complication status, unspecified pancreatitis type (2) Abdominal pain: Qualified Code: R10.11 - Right upper quadrant abdominal pain (3) Pneumonia: (4) Hypertension: Qualified Code: I10 - Essential hypertension (5) Cholelithiasis: Gross,Hermila G. CLINICAL VETERINARIAN Mar 01, 2016 09:33
[2016-03-01] MEDS ORDERED: POTASSIUM CHLORIDE 25 MEQ EFFERVESCENT TAB PO ONE (10:00)
[2016-03-01 11:28] VITALS: PULSE 61
[2016-03-01 12:00] VITALS: BP 157/77; PULSE 58; RESP 18; TEMP 98.5; O2SAT 94
[2016-03-01 16:00] VITALS: BP 161/81; PULSE 73; RESP 20; TEMP 98.3; O2SAT 95
[2016-03-01] MEDS: SODIUM CHLORIDE 0.9% FLUSH 5 ML FLUSH FLUSH PRN (16:26)
[2016-03-01] MEDS: ENALAPRILAT 1.25 MG/ML VIAL IV PUSH PRN (16:26)
[2016-03-01 20:00] VITALS: BP 152/75; PULSE 74; PULSE 79; RESP 16; TEMP 99.1; O2SAT 94
[2016-03-01] MEDS: oxyCODONE/ACETAMINOPHEN 5 MG/325 MG TAB PO PRN (21:31)
[2016-03-02] VITALS (9 sets, daily range): BP systolic 129–157; BP diastolic 66–79; PULSE 62–77; RESP 16–18; TEMP 98.2–100.3; O2SAT 92–95
[2016-03-02] MEDS: SODIUM CHLOR 0.9% 1000 ML INJ 1,000 ML IV SCH ×2 (03:57→17:13)
[2016-03-02] MEDS: METOCLOPRAMIDE HCL 10 MG/2 ML VIAL IV PUSH SCH ×3 (06:14→20:41)
[2016-03-02 07:14] LABS: HEMATOCRIT 41.1 % (39.0-51.0); MEAN CELL VOLUME 90.2 FL (80.0-100.0); MEAN CORPUSCULAR HEMOGLOBIN 29.8 PG (27.0-34.0); MEAN CORPUSCULAR HGB CONC 33.1 % (32.0-36.0); PLATELET COUNT 529 TH/MM3 (150-450); RED BLOOD COUNT 4.55 MIL/MM3 (4.50-5.90); RED CELL DISTRIBUTION WIDTH 14.6 % (11.6-17.2); REVIEW FLAG FINAL; WHITE BLOOD COUNT 14.8 TH/MM3 (4.0-11.0)
[2016-03-02 07:30] LABS: BICARBONATE 27.9 MEQ/L (21.0-32.0); POTASSIUM 3.8 MEQ/L (3.5-5.1)
[2016-03-02] MEDS: METOPROLOL TARTRATE 25 MG TAB PO SCH ×2 (09:00→20:41)
[2016-03-02] MEDS: amLODIPine BESYLATE 5 MG TAB PO SCH (09:00)
[2016-03-02] MEDS: SODIUM CHLORIDE 0.9% FLUSH 5 ML FLUSH FLUSH SCH ×2 (09:00→20:44)
--- NOTE | 2016-03-02 09:14 | HHI.PR ---
Subjective Subjective Remarks s/p lap mich 02/27 tolerating diet okay, eating small amounts not as much nausea today having BMs no fever no cp no sob minimal cough Review of Systems Constitutional Constitutional Remarks 12 point ROS completed, limited, Vitals/Results Intake & Output 03/01/16 03/01/16 03/02/16 15:00 23:00 07:00 Intake Total 720 ml 1155 ml 856 ml Balance 720 ml 1155 ml 856 ml Intake Oral 280 ml 200 ml IV Total 720 ml 875 ml 656 ml # Voids 2 2 Vital Signs Vital Signs Date Time Temp Pulse Resp B/P Pulse Ox O2 Delivery O2 Flow Rate FiO2 03/02/16 08:00 98.2 73 18 142/79 94 03/02/16 07:43 92 03/02/16 04:00 98.4 67 16 157/74 94 03/02/16 00:10 98.4 68 16 148/71 94 03/01/16 20:00 99.1 74 16 152/75 94 03/01/16 20:00 Room Air 03/01/16 20:00 79 03/01/16 16:00 98.3 73 20 161/81 95 03/01/16 15:43 Room Air 03/01/16 12:00 98.5 58 18 157/77 94 03/01/16 11:28 61 CBC/BMP: 03/02/16 0639 03/02/16 0639 Lab Results Laboratory Tests Test 03/02/16 06:39 White Blood Count 14.8 TH/MM3 Red Blood Count 4.55 MIL/MM3 Hemoglobin 13.6 GM/DL Hematocrit 41.1 % Mean Corpuscular Volume 90.2 FL Mean Corpuscular Hemoglobin 29.8 PG Mean Corpuscular Hemoglobin 33.1 % Concent Red Cell Distribution Width 14.6 % Platelet Count 529 TH/MM3 Mean Platelet Volume 8.4 FL Sodium Level 143 MEQ/L Potassium Level 3.8 MEQ/L Chloride Level 108 MEQ/L Carbon Dioxide Level 27.9 MEQ/L Anion Gap 7 MEQ/L Blood Urea Nitrogen 16 MG/DL Creatinine 1.52 MG/DL Estimat Glomerular Filtration 48 ML/MIN Rate Random Glucose 146 MG/DL Calcium Level 8.3 MG/DL Physical Exam General General Appearance: Well Developed, Well Nourished Eyes Eye Exam: Pupils Equal, Pupils Reactive, Extraocular Movement Intact, Jaundice Ears & Nose Ears & Nose Exam: Nasal Mucosa [place] Throat Throat Exam: Oral Mucosa [place] & Moist Neck Neck Exam: Neck Supple, Trachea Midline Pulmonary Resp Exam: Breath Sounds Equal, No Distress Resp Remarks diminished Cardiology CV Exam: Regular, Normal Sinus Rhythm Gastrointestinal/Abdomen GI Exam: Soft, Bowel Sounds Present, Positive Bowel Movement, Non-Distended, Bowel Sounds Hypoactive GI Remarks diffuse tenderness x 4 lap incisions, intact, no redness, Musculoskeletal MS Exam: Joints Intact Integumentary Skin Exam: Warm, Dry Extremeties Extremities Exam: Pedal Pulses Palpable, Trace Edema Neurologic Neuro Exam: Alert, Awake, Oriented, Speech Clear, Moving All Extremities, No Focal Deficits Psychiatric Psych Exam: Appropriate Responses VTE Prophylaxis VTE Prophylaxis Device: SCDs VTE Prophylaxis Meds: Heparin PUD Prophylasis PUD Prophylaxis: Protonix Assessment/Plan Problem List: (1) Acute pancreatitis (2) Leukocytosis (3) Elevated LFTs (4) Abdominal pain (5) Pneumonia (6) Hyperglycemia (7) Tachycardia (8) Wheezing (9) Hypertension (10) Cholelithiasis Assessment/Plan S/P ERCP with balloon and stone retrieval 02/20/[address] Sanchez's input appreciated. S/P lab mich 02/27 post op care Ileus resolved, having BMs Tolerating regular diet well Continue empiric abx Dilaudid for pain management PPI for GI prophylaxis SCDs for DVT prophylaxis BP stable Continue Vasotec PRN Duonebs/oxygen OOB PT IS q 2 WA Minimal pain, tolerated surgery well antiemetics PRN Creat elevated, 1.5 today, was on Vanco Continue NS @ 75 off antibiotics now Cleared per Dr. Sanchez will keep one more day to monitor renal function hopefully dc tomorrow D/W RN D/W pt D/W Dr. Yung This patient was seen by myself and Dr. Yung, this note is written on his behalf. Problem Qualifiers (1) Acute pancreatitis: Qualified Code: K85.90 - Acute pancreatitis, unspecified complication status, unspecified pancreatitis type (2) Abdominal pain: Qualified Code: R10.11 - Right upper quadrant abdominal pain (3) Pneumonia: (4) Hypertension: Qualified Code: I10 - Essential hypertension (5) Cholelithiasis: Hermila Dao Mar 02, 2016 09:14
[2016-03-02] MEDS ORDERED: AMLO5 PO (09:50)
[2016-03-02] MEDS ORDERED: METO25TA3 PO (09:50)
--- NOTE | 2016-03-02 09:50 | HHI.DCPOC ---
Discharge Care Plan Diagnosis: (1) GERD (gastroesophageal reflux disease) (2) Acute gallstone pancreatitis (3) Cholelithiasis (4) Acute pancreatitis (5) Hyperglycemia (6) Leukocytosis (7) Tachycardia (8) Wheezing (9) Abdominal pain (10) Hypertension (11) Pneumonia (12) Elevated LFTs Your Health Problems Are: Irregular Bowel Function Cough Shortness of Breath Goals to Promote Your Health * To prevent worsening of your condition and complications * To maintain your health at the optimal level Directions to Meet Your Goals Take your medications as prescribed Follow your dietary instruction Follow activity as directed Keep your appointments as scheduled Take your immunizations and boosters as scheduled If your symptoms worsen call your PCP, if no PCP go to Urgent Care Center or Emergency Room Smoking is Dangerous to Your Health. Avoid second hand smoke Call the 24-hour hour crisis hotline for domestic abuse at Hermila Dao Mar 02, 2016 09:50
[2016-03-02] MEDS: oxyCODONE/ACETAMINOPHEN 5 MG/325 MG TAB PO PRN ×2 (11:45→20:42)
[2016-03-03 01:09] VITALS: BP 147/70; PULSE 70; RESP 18; TEMP 98.8; O2SAT 94
[2016-03-03 04:00] VITALS: BP 159/69; PULSE 76; RESP 18; TEMP 98.5; O2SAT 93
[2016-03-03] MEDS: METOCLOPRAMIDE HCL 10 MG/2 ML VIAL IV PUSH SCH (06:18)
[2016-03-03] MEDS: SODIUM CHLOR 0.9% 1000 ML INJ 1,000 ML IV SCH (06:40)
[2016-03-03 08:00] VITALS: BP 149/71; PULSE 76; RESP 20; TEMP 98.1; O2SAT 94
[2016-03-03 08:12] LABS: BICARBONATE 26.5 MEQ/L (21.0-32.0); POTASSIUM 3.5 MEQ/L (3.5-5.1)
[2016-03-03] MEDS: SODIUM CHLORIDE 0.9% FLUSH 5 ML FLUSH FLUSH SCH (09:00)
[2016-03-03 09:03] VITALS: O2SAT 93
[2016-03-03] MEDS: METOPROLOL TARTRATE 25 MG TAB PO SCH (09:47)
[2016-03-03] MEDS: amLODIPine BESYLATE 5 MG TAB PO SCH (09:47)
--- NOTE | 2016-03-03 11:30 | HHI.PR ---
Subjective Interval History Patient has minimal to no pain. Pain medication helps No nausea No diarrhea has good bowel movement No other complaint Feeling better Wants to go home Vitals/Results Intake & Output 03/02/16 03/02/16 03/03/16 15:00 23:00 07:00 Intake Total 720 ml 1079 ml 664 ml Balance 720 ml 1079 ml 664 ml Intake Oral 720 ml IV Total 1079 ml 664 ml # Voids 3 # Bowel Movements 0 Vital Signs Vital Signs Date Time Temp Pulse Resp B/P Pulse Ox O2 Delivery O2 Flow Rate FiO2 03/03/16 08:00 98.1 76 20 149/71 94 03/03/16 08:00 Room Air 03/03/16 04:00 98.5 76 18 159/69 93 03/03/16 01:09 98.8 70 18 147/70 94 03/02/16 22:50 94 Nasal Cannula 2.00 03/02/16 21:42 98.5 76 16 157/77 93 03/02/16 20:40 Room Air 03/02/16 20:00 77 03/02/16 16:00 99.1 66 18 141/69 93 03/02/16 12:00 100.3 62 18 129/66 95 CBC/BMP: 03/02/16 0639 03/03/16 0627 Lab Results Laboratory Tests Test 03/03/16 06:27 Sodium Level 141 MEQ/L Potassium Level 3.5 MEQ/L Chloride Level 104 MEQ/L Carbon Dioxide Level 26.5 MEQ/L Anion Gap 11 MEQ/L Blood Urea Nitrogen 16 MG/DL Creatinine 1.35 MG/DL Estimat Glomerular Filtration 55 ML/MIN Rate Random Glucose 159 MG/DL Calcium Level 8.1 MG/DL Physical Exam General General Appearance: Well Developed, Well Nourished Eyes Eye Exam: Pupils Equal, Pupils Reactive, Extraocular Movement Intact, Jaundice Ears & Nose Ears & Nose Exam: Nasal Mucosa [place] Throat Throat Exam: Oral Mucosa [place] & Moist Neck Neck Exam: Neck Supple, Trachea Midline Pulmonary Resp Exam: Breath Sounds Equal, No Distress Cardiology CV Exam: Regular, Normal Sinus Rhythm Gastrointestinal/Abdomen GI Exam: Soft, Non-Tender, Bowel Sounds Present, Positive Bowel Movement, Non- Distended, Bowel Sounds Hypoactive Musculoskeletal MS Exam: Joints Intact Integumentary Skin Exam: Warm, Dry Extremeties Extremities Exam: Pedal Pulses Palpable, Trace Edema Neurologic Neuro Exam: Alert, Awake, Oriented, Speech Clear, Moving All Extremities, No Focal Deficits Psychiatric Psych Exam: Appropriate Responses VTE Prophylaxis VTE Prophylaxis Device: SCDs VTE Prophylaxis Meds: Heparin PUD Prophylasis PUD Prophylaxis: Protonix Assessment/Plan Problem List: (1) Acute pancreatitis (2) Leukocytosis (3) Elevated LFTs (4) Abdominal pain (5) Pneumonia (6) Hyperglycemia (7) Tachycardia (8) Wheezing (9) Hypertension (10) Cholelithiasis Assessment/Plan S/P ERCP with balloon and stone retrieval 02/20/[address] Sanchez's input appreciated. S/P lab [place] 02/27 post op care Ileus resolved, having normal BMs Tolerating regular diet well Continue empiric abx Analgesics for pain management PPI for GI prophylaxis SCDs for DVT prophylaxis BP stable Continue Vasotec PRN Duonebs/oxygen OOB PT IS q 2 WA Minimal pain, tolerated surgery well antiemetics PRN Creat elevated, 1.3 Today, was on Vanco, improving On NS @ 75 off antibiotics now Cleared per Dr. Sanchez Plan to DC home today to be followed by primary care and Dr. Sanchez as outpatient D/W RN D/W pt Problem Qualifiers (1) Acute pancreatitis: Qualified Code: K85.90 - Acute pancreatitis, unspecified complication status, unspecified pancreatitis type (2) Abdominal pain: Qualified Code: R10.11 - Right upper quadrant abdominal pain (3) Pneumonia: (4) Hypertension: Qualified Code: I10 - Essential hypertension (5) Cholelithiasis: Mike Yung MD Mar 03, 2016 11:30
--- NOTE | 2016-03-03 11:35 | HHI.DS ---
Discharge Summary Admission Date Feb 18, 2016 at 21:59 Admitting Diagnosis PANCREATITIS (1) Cholelithiasis Diagnosis: Principal (2) Acute pancreatitis Diagnosis: Principal (3) Leukocytosis Diagnosis: Principal (4) Tachycardia Diagnosis: Principal (5) Abdominal pain Diagnosis: Principal (6) Hypertension Diagnosis: Principal (7) Elevated LFTs Diagnosis: Principal (8) Acute gallstone pancreatitis Diagnosis: Principal Brief History Patient was admitted with abdominal pain. Found out to have a gallstone pancreatitis. Patient was kept on IV hydration and nothing by mouth. Patient was seen and followed by batch records clerk. Workup including MRCP. Patient had ERCP done. After ERCP patient had an ileus. Patient was kept on IV hydration and antibiotic. Patient had a cholecystectomy done because of gallstone pancreatitis. Patient ileus resolved. Also pain is significantly improved. Patient blood pressure and heart rate is also stable. As patient is overall stable and good condition plan to discharge him home to be followed by primary care doctor and surgery as outpatient. Explained to the patient in detail. He understood. For further details please see chart. CBC/BMP: 03/02/16 0639 03/03/16 0627 Significant Findings Laboratory Tests Test 03/01/16 03/02/16 03/03/16 04:00 06:39 06:27 White Blood Count 13.4 TH/MM3 14.8 TH/MM3 (4.0-11.0) (4.0-11.0) Red Blood Count 4.45 MIL/MM3 (4.50-5.90) Platelet Count 506 TH/MM3 529 TH/MM3 (150-450) (150-450) Potassium Level 3.3 MEQ/L (3.5-5.1) Creatinine 1.49 MG/DL 1.52 MG/DL 1.35 MG/DL (0.60-1.30) (0.60-1.30) (0.60-1.30) Estimat Glomerular Filtration 49 ML/MIN (>89) 48 ML/MIN (>89) 55 ML/MIN (>89) Rate Calcium Level 8.0 MG/DL 8.3 MG/DL 8.1 MG/DL (8.5-10.1) (8.5-10.1) (8.5-10.1) Chloride Level 108 MEQ/L (98-107) Random Glucose 146 MG/DL 159 MG/DL (74-106) (74-106) Pt Condition on Discharge: Good Discharge Disposition: Discharge Home Discharge Instructions DIET: Follow Instructions for: Heart Healthy Diet Activities you can perform: Weight Bearing as [place] Follow up Referrals: Surgical - 2 Weeks with Grady Sanchez MD New Medications: Oxycodone-Acetaminophen (Percocet) 5-325 mg Tab 1-2 TAB PO Q6H PRN PAIN #25 Ref 0 TAB Amlodipine (Norvasc) 5 Mg Tab 10 MG PO DAILY Blood Pressure Management #30 Ref 1 TAB Metoprolol Tartrate (Metoprolol Tartrate) 25 Mg Tab 25 MG PO Q12HR Blood Pressure Management #60 Ref 1 TAB Discontinued Medications: Metronidazole (Metronidazole) 500 Mg Tab 500 MG PO TID Infection Ref 0 TAB Mike Yung MD Mar 03, 2016 11:35
[2016-03-03 12:00] VITALS: BP 144/71; PULSE 65; RESP 20; TEMP 98.2; O2SAT 94
== END 2016-03-03 14:09 | disposition home or self-care (01) | DRG 417 ==
LOC: NEPE 19:53 → NEDA 21:59 → N04A 02-19 03:56
PROVIDERS: ADMIT Internal Medicine; ATTEND Internal Medicine
PROC: 0FC98ZZ Extirpation of Matter from Common Bile Duct, Via Natural or Artificial Opening Endoscopic (ICD-10-PCS; 2016-02-20)
PROC: 0FT44ZZ Resection of Gallbladder, Percutaneous Endoscopic Approach (ICD-10-PCS; principal; 2016-02-28 13:57)
DX: K85.10 Biliary acute pancreatitis without necrosis or infection (principal); J18.9 Pneumonia, unspecified organism; K80.30 Calculus of bile duct with cholangitis, unspecified, without obstruction; K56.7 Ileus, unspecified; K80.70 Calculus of gallbladder and bile duct without cholecystitis without obstruction; I10 Essential (primary) hypertension; K21.9 Gastro-esophageal reflux disease without esophagitis; R74.8 Abnormal levels of other serum enzymes; R74.0 Nonspecific elevation of levels of transaminase and lactic acid dehydrogenase [LDH]; R73.9 Hyperglycemia, unspecified; Z23 Encounter for immunization
CPT/HCPCS: 36600; 71010; 74000; 74177; 74181; 74330; 76377; 80048; 80053; 80076; 80202; 82550; 82552; 82565; 82805; 83036; 83605; 83690; 83735; 84484; 85007; 85025; 85027; 88304; 90471; 90472; 90686; 90732; 93005; 94002; 94150; 94640; 94664; 96361; 96374; 96375; C1769; C9113; G0008; G0009; J1170; J1200; J1644; J1940; J2250; J2270; J2370; J2405; J2543; J2765; J2920; J2930; J3010; J3370; J3480; J7030; J7040; J7050; J7120; J7613; Q2038; Q9967